=== PATIENT | female | born 1980 | race Caucasian/White ===

== ENCOUNTER 2017-12-27 18:10 | Emergency (ER) | payer MEDICAID, SELFPAY ==
--- NOTE | 2017-12-27 18:10 | DT_ITS ---
This patient was seen during an EMR downtime December 25, 2017 - January 01, 2018. This patient may have a combination of paper and electronic documentation or all paper documentation. All documentation is viewable within the e-chart portion of [facility] for each patient visit.
--- NOTE | 2017-12-27 19:15 | RAD_ITS ---
STUDY: X-RAY CHEST REASON FOR EXAM: Female, 37 years old. Abdominal pain TECHNIQUE: PA and lateral views of the chest. COMPARISON: None. FINDINGS: The lungs are clear and expanded. There is no demonstrated pleural abnormality. Normal size heart. Normal mediastinum and escobar. Normal visualized pulmonary arteries. Normal visualized aortic arch and descending thoracic aorta. Normal visualized thoracic spine. Normal visualized ribs, clavicles, and shoulders. There is no demonstrated abnormality of the visualized soft tissue structures of the upper abdomen. RAD/Chest PA and Lateral IMPRESSION: Normal x-ray examination of the chest. Please note that this study was performed on 12/27/2017, but only now placed in my queue for interpretation, explaining the delay in reporting. Electronically Signed: Ezequiel Arroyo DO at 13:01 EDT Tel , Service support ,
--- NOTE | 2017-12-27 21:10 | CT_ITS ---
STUDY: CT ABDOMEN AND PELVIS WITHOUT CONTRAST REASON FOR EXAM: Female, 37 years old. Mid abdominal pain RADIATION DOSAGE (If Supplied By Facility): CTDIvol = ( 15.39 ) mGy, DLP = ( 734.31 ) mGycm TECHNIQUE: Transaxial images were obtained from the dome of the diaphragm to the symphysis pubis without oral contrast, and without intravenous contrast. Sagittal and coronal images were reconstructed. Individualized dose optimization techniques were used for this CT. COMPARISON: None. FINDINGS: The visualized lung bases are unremarkable. The visualized portions of the heart are within normal limits. Normal liver. Normal gallbladder and extrahepatic biliary system. Normal spleen. Normal pancreas. Normal bilateral adrenal glands. Normal right kidney. Normal left kidney. Normal visualized stomach. Normal small intestine. Normal colon. The appendix is visualized and appears normal. Normal abdominal aorta. Normal inferior vena cava. Normal retroperitoneum. Normal urinary bladder. Normal visualized uterus and left ovary. There is a decrease attenuation lesion in the right ovary most likely represent a cyst measures 4 cm. Normal abdominal wall. Normal osseous structures. CT/Abdomen/Pelvis without Cont IMPRESSION: Right ovarian cyst measures 4 cm. Electronically Signed: Zeinab Branham MD at 4:53 EDT Tel , Service support ,
[2017-12-30 06:28] LABS: Absolute Neutrophil Count 4.4 X10^3/uL (2.0-7.7); Basophil% 0.5 % (0-1); Eosinophils% 1.3 % (0-5); Hematocrit 44.9 % (37-47); Hemoglobin 15.4 g/dl (12.0-15.0); Lymphocyte # 2.43 X10^3/ul (4.0); Lymphocyte % 32.2 % (19-41); Mean Corp Hgb Conc 34.3 g/gl (32-36); Mean Corpuscular Hgb 30.2 pg (27.0-32.0); Mean Platelet Vol. 9.3 fl (6.2-12.0); Monocyte% 7.6 % (0-10); Neutrophil # 4.39 X10^3/uL (2.7-7.7); Neutrophil % 58.3 % (47-70); POSITIVE COUNT NO; POSITIVE DIFFERENTIAL NO; POSITIVE MORPHOLOGY NO; Platelet Count 340 K/mm3 (150-450); RBC Distribution Width CV 13.5 % (11.6-14.6); RBC Distribution Width SD 43.8 fl (35.1-43.9); White Blood Count 7.5 K/mm3 (4.4-11.0)
[2017-12-30 06:29] LABS: Absolute Lymphocyte Count 2.43 X10^3/ul (0.83-4.51); Basophil# 0.04 X10^3/uL; Monocyte# 0.57 X10^3/uL
[2017-12-30 06:52] LABS: Glucose 86 mg/dL (74-106)
[2017-12-30 06:53] LABS: AST(SGOT) 18 U/L (15-37); Alanine Aminotransfer ALT/SGPT 29 U/L (13-56); Albumin, Serum 3.9 g/dL (3.2-5.0); Alkaline Phosphatase 83 U/L (45-117); Anion Gap 8 (5-15); BUN 14 mg/dL (7-18); BUN/Creat Ratio 16.7 RATIO (10-20); Bilirubin, Direct < 0.05 mg/dL (0.00-0.30); Calcium,Total 9.2 mg/dL (8.5-10.1); Chloride 106 mmol/L (98-107); Creatinine, Serum 0.84 mg/dL (0.55-1.02); EST Glomerular Filtration Rate 81 mL/min (>60); Est Glom Filt Rate - Afr Amer 98 mL/min (>60); Lipase 132 U/L (73-393); Potassium 3.7 mmol/L (3.5-5.1); Pregnancy, Serum, hCG Quali. NEGATIVE Negative (0-9 Nonpreg); Protein, Total 7.9 g/dL (6.4-8.2); Sodium Level 141 mmol/L (136-145)
== END 2017-12-27 21:54 | disposition home or self-care (01) ==
LOC: ED 12-28 14:50
PROVIDERS: Emergency Provider Emergency Medicine; Family Provider Family Medicine; PCP Family Medicine
DX: R10.9 Unspecified abdominal pain (principal); N83.201 Unspecified ovarian cyst, right side; R05 Cough; R19.7 Diarrhea, unspecified; E11.9 Type 2 diabetes mellitus without complications; J45.909 Unspecified asthma, uncomplicated; E78.00 Pure hypercholesterolemia, unspecified; I10 Essential (primary) hypertension; K21.9 Gastro-esophageal reflux disease without esophagitis; F32.9 Major depressive disorder, single episode, unspecified; Z79.84 Long term (current) use of oral hypoglycemic drugs; Z79.899 Other long term (current) drug therapy
CPT/HCPCS: 71046; 74176; 80048; 80076; 83690; 84703; 85025; 96361; 96374; 96375; 99283; J7030; J2405

== ENCOUNTER 2018-07-21 15:23 | Emergency (ER) | payer MEDICAID, SELFPAY ==
[2018-07-21 15:23] VITALS: BP 145/85; PULSE 83; RESP 16; TEMP 36; O2SAT 100; BMI 30.4
--- NOTE | 2018-07-21 15:33 | ED.VISSUMM ---
- ER Visit Summary Date of Service: 07/21/18 Chief Complaint: Dental pain History of Present Illness: The patient is a 37 F with dental pain for 2 days. The pain is in her right maxillary molars. She came in today because she had some associated swelling. This came on gradually. She has a fractured tooth secondary to underlying decay. No fevers or other issues. She does not have a dentist. Physical Examination: Afebrile and vital signs unremarkable. No acute distress. HEENT exam unremarkable, except she has some mild right maxillary swelling. No focal abscess, induration, or fluctuance. Tooth #3 is fractured secondary to underlying decay. Otherwise dental exam is unremarkable. Neck unremarkable. Nontender. No lymphadenopathy. Skin appears normal. Test Results: None indicated Emergency Department Course and Treatment: Patient treated with Motrin and penicillin VK. Referred for dental follow-up. Treatment Plan: As above Disposition: Discharged Impression: 1. Dental pain This note was generated with [employer] dictation software. It may contain incorrect words, spelling, and punctuation that were not noted in review of the chart prior to signing ED Disposition - Plan for ED Patient: Chief Complaint: Dental Referrals: NOT,DEFINED [Primary Care Provider] -
--- NOTE | 2018-07-21 15:35 | ED.DEP ---
ED Disposition - Plan for ED Patient: Chief Complaint: Dental Instructions: ED Tooth Pain Prescriptions: Penicillin Vk [Pen-Vee K 250MG] 500 mg PO BID 10 Days #20 tab Referrals: Christel David [NON-STAFF] -
[2018-07-21] MEDS: HYDROcodone Bitartrate/Apap 5/325 Tablet PO (15:37)
[2018-07-21] MEDS: Penicillin Vk 250 MG Tablet 500 MG PO (15:38)
--- NOTE | 2018-07-21 15:50 | ED.RN ---
DISCHARGE INSTRUCTIONS GIVEN TO AND REVIEWED WITH PATIENT, PATIENT DENIES QUESTIONS OR CONCERNS AND VOICES UNDERSTANDING OF DISCHARGE INSTRUCTIONS. PT AMBULATES OUT OF ROOM WITHOUT DIFFICULTY.
== END 2018-07-21 15:50 | disposition home or self-care (01) ==
LOC: ED 15:46
PROVIDERS: Emergency Provider Emergency Medicine
DX: S02.5XXA Fracture of tooth (traumatic), initial encounter for closed fracture (principal); X58.XXXA Exposure to other specified factors, initial encounter; K02.9 Dental caries, unspecified; J45.909 Unspecified asthma, uncomplicated; E11.9 Type 2 diabetes mellitus without complications; Z79.84 Long term (current) use of oral hypoglycemic drugs; Z72.0 Tobacco use
CPT/HCPCS: 99283

== ENCOUNTER 2020-12-07 17:41 | Emergency (ER) | payer OTHER, MEDICAID, SELFPAY ==
[2020-12-07 17:43] VITALS: BP 165/84; PULSE 82; RESP 16; TEMP 36.3; O2SAT 98; BMI 34.9
--- NOTE | 2020-12-07 19:00 | RAD_ITS ---
INDICATION: cough EXAMINATION/TECHNIQUE: X-RAY - XR Chest 1 View COMPARISON: 12/27/2017. FINDINGS: The lungs are clear. The cardiomediastinal silhouette is unremarkable. No pleural effusion or pneumothorax. No acute osseous abnormalities. RAD/Chest 1 View (Portable) IMPRESSION: No acute radiographic abnormalities. Electronically Signed: Gurinder Hendrickson MD at 19:18 EDT Tel , Service support ,
[2020-12-07 20:00] VITALS: RESP 16
--- NOTE | 2020-12-07 20:57 | EX.ED.DYSGE1 ---
HPI History of Present Illness Chief Complaint: Headache Informant: patient Narrative Narrative: 40-year-old female presenting with headache, cough, body aches. She states she has been exposed to Covid at work. She denies fever. She has a nonproductive cough. She is here with 2 of her sons with similar complaints. She has nausea with no vomiting. Denies diarrhea. Denies other complaints. PFSH PFSH Medical History Anxiety Chronic pain Diabetes GERD (gastroesophageal reflux disease) Home Medications albuterol sulfate [Ventolin Hfa (SP)] 1 - 2 puff INHALATION Q4H PRN PRN 02/23/17 [History Last Taken Unknown] metformin 500 mg PO DAILY 02/23/17 [History Last Taken Unknown] omeprazole 20 mg PO DAILY 02/23/17 [History Last Taken Unknown] Allergy/AdvReac Type Severity Reaction Status Date / Time mometasone furoate Allergy Swelling Verified 12/07/20 17:43 [From Nasonex] pioglitazone [From Actos] Allergy Swelling Verified 12/07/20 17:43 Sulfa (Sulfonamide Allergy Rash Verified 12/07/20 17:43 Antibiotics) SEAFOOD AdvReac Nausea/Vom/ Uncoded 12/07/20 17:43 Diarrhea Social History Smoking Status: Current every day smoker ROS ROS ED Constitutional Constitutional ED: Denies fever(s) Eyes Eyes: Denies change in vision ENT ENT ED: Reports rhinorrhea and sore throat Cardiovascular Cardiovascular: Denies chest pain or palpitations Respiratory/Chest Respiratory/Chest: Reports cough; Denies dyspnea or sputum Gastrointestinal Gastrointestinal: Reports nausea; Denies abdominal pain, diarrhea or vomiting Genitourinary Genitourinary ED: Denies dysuria Musculoskeletal Musculoskeletal: Reports myalgias Integumentary Denies rash Neurologic Neurologic: Reports headache(s) Psychiatric Psychiatric: Denies suicidal thoughts EXAM Physical Exam Const Vital Signs: 12/07/20 17:43 12/07/20 20:00 Temperature 97.3 F L Temperature Source Temporal Pulse Rate 82 Respiratory Rate 16 16 Blood Pressure 165/84 H Blood Pressure Mean 111 Pulse Ox 98 Oxygen Delivery Method Room Air Positive well nourished and well developed General Appearance ED: well developed HEENT Reports normocephalic, head/scalp atraumatic and moist mucous membranes Eyes PERRL and EOMs intact bilaterally Neck supple Neck Narrative: No meningismus General: Negative for tenderness Chest Wall inspection of chest normal Resp normal respiratory effort and clear to auscultation bilaterally Cardio regular rate and regular rhythm GI non-tender and non-distended Palpation: soft; Negative for guarding or rebound tenderness present no CVA tenderness Extremity normal to inspection Neuro oriented x3 Sensorium / Orientation: alert Psych mental status grossly normal Skin no rashes or lesions noted MDM MDM MDM Narrative Medical decision making narrative: Covid is negative. Chest x-ray read by myself and radiology shows no acute process. Patient is resting comfortably on reevaluation. She is advised follow up with her primary care physician. Advised return to the ED for worsening complaints. Lab Data Attestation: I reviewed the patient's lab results. Radiography Chest X-Ray - ED: 1 View, Read by ED Physician and Read by Radiologist Diagnostic Testing: Radiology Impression Chest X-Ray 12/07/20 19:00 IMPRESSION: No acute radiographic abnormalities. Electronically Signed: Gurinder Hendrickson MD at 19:18 EDT Tel , Service support , Discharge Plan Triage Chief Complaint: Headache ED Provider: Destini Ware Dx/Rx/DC Orders Clinical Impression: Viral syndrome Instructions: ED Viral Syndrome (Adult) Prescriptions: No Action metformin 500 MG tablet 500 mg PO DAILY RF: 0 omeprazole 20 MG Capsule.Dr 20 mg PO DAILY RF: 0 albuterol sulfate [Ventolin HFA] 1 INHALER inhaler 1 - 2 puff inhalation Q4H PRN PRN (Reason: Asthma) RF: 0 Primary Care Provider: Remi Nova Referrals: Remi Nova MD [Primary Care Provider] - Disposition Disposition: Home, self care
== END 2020-12-07 21:10 | disposition home or self-care (01) ==
PROVIDERS: Emergency Provider Emergency Medicine; PCP Internal Medicine
DX: B34.9 Viral infection, unspecified (principal); E11.9 Type 2 diabetes mellitus without complications; K21.9 Gastro-esophageal reflux disease without esophagitis; F17.200 Nicotine dependence, unspecified, uncomplicated; Z79.84 Long term (current) use of oral hypoglycemic drugs; Z79.899 Other long term (current) drug therapy
CPT/HCPCS: 71045; 87426; 99282

== ENCOUNTER → 2021-04-12 | Outpatient (CLI) | payer OTHER, MEDICAID, SELFPAY | END | disposition home or self-care (01) | LOC: LABSPEC 04-13 07:36 | PROVIDERS: PCP Internal Medicine; Visit Provider Physician Assistant Surgical | DX: U07.1 COVID-19 (principal) | CPT/HCPCS: 87635; U0005; U0003 ==

== ENCOUNTER 2022-03-31 16:08 | Inpatient (IN) | payer MEDICAID, SELFPAY ==
[2022-03-31] VITALS (11 sets, daily range): BP systolic 119–186; BP diastolic 73–87; PULSE 77–92; RESP 14–18; TEMP 36.2–36.6; O2SAT 94–98; BMI 34.0; BMI 33.8
--- NOTE | 2022-03-31 16:27 | EKG12_ITS ---
Test Reason : CHEST PAIN Blood Pressure : / mmHG Vent. Rate : 091 BPM Atrial Rate : 091 BPM P-R Int : 134 ms QRS Dur : 088 ms QT Int : 372 ms P-R-T Axes : 057 008 057 degrees QTc Int : 457 ms Normal sinus rhythm Nonspecific ST abnormality Abnormal ECG Confirmed by EVELINA HOWARD, QUAN ([id number]), department editor JAVI GARCIA ([id number]) on 04/04/2022 10:46:12 AM Referred By: OLIVIA Confirmed By:QUAN HOYT MD
--- NOTE | 2022-03-31 16:28 | ED.VIS.CHEST ---
HPI History of Present Illness Chief Complaint: Chest Pain Detail of Chief Complaint: Chest pain for 1 hour Informant: patient Onset/Context/Timing Current Severity: 12/31 Narrative Narrative: Patient presents to the emergency department with complaint of chest discomfort while at rest. She describes a burning sensation across her chest. She describes discomfort into her back and down both arms. Patient rates her pain a 6 out of 10. She is never had pain like this before. Patient does describe some mild nausea and some mild shortness of breath. Patient states that she felt somewhat ill 6 days ago and took a COVID test that was negative at home. She denies significant cough. She denies fever. She denies recent travel or surgery. Patient is a diabetic and has history of high cholesterol. She has a significant family history of heart disease in her mother required triple bypass surgery at the age of 48. Patient also states that she is been having some chest discomfort off and on for a couple of weeks. Prior Similar Symptoms: Yes PFSH [facility] Medical History (Updated 03/31/22 @ 17:[address] Karma Sauceda, DO) Anxiety Asthma Chronic pain Diabetes Gastritis GERD (gastroesophageal reflux disease) High cholesterol Home Medications albuterol sulfate 90 mcg/actuation aerosol inhaler (Ventolin HFA) 1 - 2 puff inhalation Q4H PRN PRN Asthma 02/23/17 [History Last Taken Unknown] metformin 500 mg tablet 500 mg PO DAILY 02/23/17 [History Last Taken Unknown] omeprazole 20 mg capsule,delayed release 20 mg PO DAILY 02/23/17 [History Last Taken Unknown] bupropion HCl 300 mg 24 hr tablet, extended release 300 mg PO DAILY 03/31/22 [History Last Taken Unknown] dulaglutide 0.75 mg/0.5 mL subcutaneous pen injector (Trulicity) 0.75 mg subcut QWEEK 03/31/22 [History Last Taken Unknown] ergocalciferol (vitamin D2) 1,250 mcg (50,000 unit) capsule (Vitamin D2) 03/31/22 [History Last Taken Unknown] gabapentin 300 mg capsule 300 mg PO BID 03/31/22 [History Last Taken Unknown] ibuprofen 200 mg tablet 400 - 600 mg PO DAILY PRN PRN Pain 03/31/22 [History Last Taken 03/30/22] meloxicam 15 mg tablet 15 mg PO DAILY 03/31/22 [History Last Taken Unknown] Allergy/AdvReac Type Severity Reaction Status Date / Time mometasone furoate Allergy Swelling Verified 12/07/20 17:43 [From Nasonex] pioglitazone [From Actos] Allergy Swelling Verified 12/07/20 17:43 Sulfa (Sulfonamide Allergy Rash Verified 12/07/20 17:43 Antibiotics) SEAFOOD AdvReac Nausea/Vom/ Uncoded 12/07/20 17:43 Diarrhea Social History Smoking Status: Current every day smoker tobacco type: e-cigarettes ROS ROS ED Review of Systems ROS Unobtainable: other Constitutional Constitutional ED: Reports lethargy; Denies chills, fever(s), sweats or weight loss Eyes Eyes: Denies blurry vision, change in vision or diplopia ENT ENT ED: Denies rhinorrhea or sore throat Cardiovascular Cardiovascular: Reports chest pain; Denies orthopnea, palpitations or racing heartbeat Respiratory/Chest Respiratory/Chest: Reports dyspnea; Denies cough, dyspnea on exertion, orthopnea or sputum Gastrointestinal Gastrointestinal: Reports nausea; Denies abdominal pain, diarrhea or vomiting Genitourinary Genitourinary ED: Denies dysuria, hematuria or urinary frequency Musculoskeletal Musculoskeletal: Denies arthralgias, back pain, myalgias or neck pain Integumentary Denies abscess, Abrasions or rash Neurologic Neurologic: Denies headache(s) or weakness Psychiatric Psychiatric: Denies anxiety, depression or suicidal thoughts Endocrine Endocrinology: Denies polydipsia, polyphagia or polyuria Hematologic/Lymphatic Hematologic/Lymphatic: Denies easy bleeding, easy bruising or lymphadenopathy Allergic/Immunologic Allergic/Immunologic ED: Denies mouth swelling, tongue swelling or urticaria EXAM Physical Exam Const Vital Signs: 03/31/22 16:09 03/31/22 16:13 03/31/22 16:15 Temperature 97.5 F L Temperature Source Temporal Pulse Rate 91 88 Respiratory Rate 16 14 Respiratory Effort Normal Blood Pressure 186/87 H 164/80 H Blood Pressure Mean 120 108 Pulse Ox 98 98 Oxygen Delivery Method Room Air Room Air 03/31/22 16:33 03/31/22 16:44 03/31/22 16:50 Temperature Temperature Source Pulse Rate 86 92 Respiratory Rate 18 Respiratory Effort Blood Pressure 164/80 H 148/86 H Blood Pressure Mean 106 Pulse Ox 96 94 Oxygen Delivery Method Room Air Room Air 03/31/22 17:12 03/31/22 17:13 Temperature Temperature Source Pulse Rate 89 89 Respiratory Rate 18 Respiratory Effort Blood Pressure 137/86 H 137/86 H Blood Pressure Mean 103 Pulse Ox 97 Oxygen Delivery Method Room Air Positive well nourished and well developed General Appearance ED: well developed and NAD HEENT Reports TM's clear and moist mucous membranes normocephalic and atraumatic; Negative for trauma or tenderness Tympanic Membrane ED: Yes TM's clear Eyes PERRL and EOMs intact bilaterally General Eye ED: Negative for pale conjunctiva or scleral icterus Neck no lymphadenopathy, supple and no JVD General: Negative for tenderness Chest Wall inspection of chest normal and palpation of chest normal Chest: Negative for tenderness Resp normal respiratory effort and clear to auscultation bilaterally Effort and Inspection: Negative for respiratory distress or pain with movement Auscultation: Negative for rhonchi, wheezes or diminished lung sounds Cardio regular rate, regular rhythm, S1 normal heart sound, S2 normal heart sound and no murmurs Peripheral Pulses: pulses 2+ throughout GI normal to inspection, nondistended, normoactive bowel sounds, soft to palpation, non-tender, non-distended and no masses Back/Spine no CVA tenderness and no thoracic nor lumbar tenderness Extremity normal to inspection General Extremety ED: Negative for edema General Extremity: Negative for edema Neuro oriented x3, CN's II-XII intact bilaterally, no sensory deficits noted and gait normal Sensorium / Orientation: awake, alert, oriented to person, oriented to place and oriented to time Motor Exam: strength 5/5 throughout and strength abnormal Psych mental status grossly normal Skin no rashes or lesions noted and no wounds Heart Score History: Moderately Suspicious ECG: Nonspecific Repolarization Age: </= 45 years Risk Factors: >/= 3 Risk Factors or History of CAD Troponin: </= Normal Limit Score: 4 MDM MDM MDM Narrative Medical decision making narrative: The line established on arrival. Patient placed on bus driver/monitor. Patient had aspirin. Patient was given sublingual nitro which did seem to ease her pain and she had an inch of Nitropaste placed to the anterior chest wall. Patient has a heart score of 4. Case discussed with hospitalist will evaluate patient for admission for diagnosis chest pain Lab Data Labs: Laboratory Results - last 24 hr 03/31/22 03/31/22 03/31/22 16:15 16:15 16:15 WBC 6.9 RBC 4.99 Hgb 14.9 Hct 42.1 MCV 84.4 MCH 29.9 MCHC 35.4 RDW Std Deviation 37.2 RDW Coeff of Sathish 12.1 Plt Count 370 MPV 9.8 Immature Gran % (Auto) 0.100 Neut % (Auto) 63.8 Lymph % (Auto) 27.7 [place] % (Auto) 7.1 Eos % (Auto) 0.7 Baso % (Auto) 0.6 Absolute Neuts (auto) 4.4 Absolute Lymphs (auto) 1.92 Nucleated RBC % 0 D-Dimer Quant (PE/DVT) 0.35 Sodium 137 Potassium 3.8 Chloride 101 Carbon Dioxide 25.0 Anion Gap 11 BUN 15 Creatinine 1.02 Estim Creat Clear Calc 64.65 Est GFR (MDRD) Af Amer 76 Est GFR (MDRD) Non-Af 63 BUN/Creatinine Ratio 14.7 Glucose 362 H Calcium 9.4 Troponin I High Sens 8 Radiography Diagnostic Testing: Clinical Impression(s) from Imaging Studies Chest X-Ray 03/31/22 16:35 IMPRESSION: Normal x-ray examination of the chest. Electronically Signed: Evaristo Lopez MD at 16:55 EDT , 1 view chest x-ray obtained interpreted by myself as no acute disease process. Radiology in agreement. EKG Initial EKG: Attestation: I personally reviewed and interpreted this EKG as follows: Comments: Sinus rhythm with a ventricular rate of [address] changes Discharge Plan Triage Chief Complaint: Chest Pain ED Provider: Karma Sauceda Dx/Rx/DC Orders Clinical Impression: Chest pain, Hx of hypercholesterolemia, Diabetes Prescriptions: No Action metformin 500 MG tablet 500 mg PO DAILY Label Comments: take 1 tablet by mouth twice a day with meals omeprazole 20 MG capsule,delayed release(DR/EC) 20 mg PO DAILY Label Comments: take 1 capsule by mouth once daily albuterol sulfate [Ventolin HFA] 1 INHALER inhaler 1 - 2 puff inhalation Q4H PRN PRN (Reason: Asthma) meloxicam 15 mg tablet 15 mg PO DAILY Label Comments: take 1 tablet by mouth once daily with food for backache pain gabapentin 300 mg capsule 300 mg PO BID Label Comments: take 1 capsule by mouth twice a day ergocalciferol (vitamin D2) [Vitamin D2] 1,250 mcg (50,000 unit) capsule Label Comments: take 1 capsule by mouth every week bupropion HCl 300 mg tablet extended release 24 hr 300 mg PO DAILY Trulicity 0.75 mg/0.5 mL pen injector 0.75 mg SUBCUT QWEEK Label Comments: inject 0.5 milliliters ( 0.75 milligrams ) subcutaneously every w... (REFER TO PRESCRIPTION NOTES). Primary Care Provider: Remi Nova Referrals: Remi Nova MD [Primary Care Provider] - Disposition Disposition: Acute Care Hospital [facility]
[2022-03-31] MEDS: Aspirin 81 MG TAB.CHEW 324 MG PO (16:34)
[2022-03-31] MEDS: 0.9% Normal Saline 1,000 ML 150 ML IV (16:34)
--- NOTE | 2022-03-31 16:35 | RAD_ITS ---
STUDY: X-RAY CHEST REASON FOR EXAM: Female, 41 years old. chest pain TECHNIQUE: Single AP portable view of the chest. COMPARISON: 12/07/2020 FINDINGS: The lungs are clear and expanded. There is no demonstrated pleural abnormality. Normal size heart. Normal mediastinum and escobar. Normal visualized pulmonary arteries. Normal visualized aortic arch and descending thoracic aorta. Normal visualized thoracic spine. Normal visualized ribs, clavicles, and shoulders. There is no demonstrated abnormality of the visualized soft tissue structures of the upper abdomen. RAD/Chest 1 View (Portable) IMPRESSION: Normal x-ray examination of the chest. Electronically Signed: Evaristo Lopez MD at 16:55 EDT ,
[2022-03-31 16:39] LABS: Absolute Lymphocyte Count 1.92 X10^3/uL (0.83-4.51); Absolute Neutrophil Count 4.4 X10^3/uL (2.0-7.7); Basophil# 0.04 X10^3/uL; Basophil% 0.6 % (0-1); Eosinophil# 0.05 X10^3/uL; Eosinophils% 0.7 % (0-5); Hematocrit 42.1 % (37-47); Hemoglobin 14.9 g/dL (12.0-15.0); Lymphocyte # 1.92 X10^3/ul (0.83-4.51); Lymphocyte % 27.7 % (19-41); Mean Corp Hgb Conc 35.4 g/dL (32-36); Mean Corpuscular Hgb 29.9 pg (27.0-32.0); Mean Corpuscular Volume 84.4 fL (81-99); Mean Platelet Vol. 9.8 fl (6.2-12.0); Monocyte# 0.49 X10^3/uL; Monocyte% 7.1 % (0-10); NRBC Flagged by Analyzer 0 % (0-5); Neutrophil # 4.42 X10^3/uL (2.7-7.7); Neutrophil % 63.8 % (47-70); Platelet Count 370 K/mm3 (150-450); RBC Distribution Width CV 12.1 % (11.6-14.6); RBC Distribution Width SD 37.2 fl (35.1-43.9); Red Blood Count 4.99 M/mm3 (4.2-5.4); White Blood Count 6.9 K/mm3 (4.4-11.0)
[2022-03-31] MEDS: Nitroglycerin SL (ED/IMG/CATH) 0.4 MG TABLET SL (16:44)
[2022-03-31 16:54] LABS: D-Dimer Quantitative (DVT/PE) 0.35 FEU/ug/m (0.27-0.49)
[2022-03-31 16:59] LABS: Anion Gap 11 (5-15); BUN 15 mg/dL (7-18); BUN/Creat Ratio 14.7 RATIO (10-20); Calcium,Total 9.4 mg/dL (8.5-10.1); Chloride 101 mmol/L (98-107); Creatinine, Serum 1.02 mg/dL (0.55-1.02); EST Glomerular Filtration Rate 63 mL/min (>60); Est Glom Filt Rate - Afr Amer 76 mL/min (>60); Estimated Creatinine Clearance 64.65 ml/min; Glucose 362 mg/dL (74-106); Potassium 3.8 mmol/L (3.5-5.1); Sodium Level 137 mmol/L (136-145); Troponin-I HS (w/2H Reflex) 8 pg/mL (3.0-54.0)
[2022-03-31] MEDS: Nitroglycerin Oint 1 INCH PACKET TD (17:13)
--- NOTE | 2022-03-31 17:20 | PCM.HP.STD ---
HPI - General General Date of Admission: 03/31/22 Date of Service: 03/31/22 Chief Complaint: Chest pain HPI Narrative The patient is a 41 y/o F w/ PMHx: Asthma, Anxiety and Depression, Tobacco use, Obesity, GERD w/ Hx gastritis, Diabetes mellitus type II with neuropathy, HLD who presents to the [facility] ED on 03/31/22 with history of onset chest discomfort noted to have occurred approximate 1 hour prior to arrival while at rest described as a burning sensation across her chest with discomfort to her back between her shoulder blades and down both her arms more so the heaviness as well as radiation up the left neck, rated 6 out of 10 in severity with associated mild nausea without emesis and mild dyspnea with history of mild illness 6 days prior with home COVID testing at that time that was negative with no recent fever, cough, chills prompting eventual ED evaluation. She currently reports her chest discomfort is 0 out of 10. She does report that she has been having intermittent discomfort to her chest however for at least a couple weeks. She does report that she quit cigarette tobacco use approximately 1 week prior and transition to vaping pen. Work-up in the ED included T97.5, heart rate 91, BP initially 186/87 with most recent repeat 137/86, respiratory rate 16, 98% on room air, CBC with WBC 6.9, hemoglobin 1114.9, platelet 370 without marked shift, D-dimer 0.35, unremarkable BMP aside glucose 362, troponin 8, chest x-ray with no acute cardiopulmonary findings, EKG with SR with nonspecific ST-T wave changes. [facility] Medical History Anxiety and depression Asthma Diabetes mellitus, type 2 Engages in vaping GERD (gastroesophageal reflux disease) High cholesterol Obesity Tobacco use Home Medications albuterol sulfate 90 mcg/actuation aerosol inhaler (Ventolin HFA) 1 - 2 puff inhalation Q4H PRN PRN Asthma 02/23/17 [History Last Taken 03/31/22] metformin 500 mg tablet 1,000 mg PO BID DM 02/23/17 [History Last Taken 03/31/22] omeprazole 20 mg capsule,delayed release 20 mg PO DAILY 02/23/17 [History Last Taken 03/31/22] bupropion HCl 300 mg 24 hr tablet, extended release 300 mg PO DAILY 03/31/22 [History Last Taken 03/31/22 13:00] dulaglutide 0.75 mg/0.5 mL subcutaneous pen injector (Trulicity) 0.75 mg subcut TH DM 03/31/22 [History Last Taken 03/24/22] ergocalciferol (vitamin D2) 1,250 mcg (50,000 unit) capsule (Vitamin D2) 1,250 mcg PO MCDUFFIE SUPPLEMENT 03/31/22 [History Last Taken 03/27/22] gabapentin 300 mg capsule 300 mg PO BID 03/31/22 [History Last Taken 03/31/22] ibuprofen 200 mg tablet 400 - 600 mg PO DAILY PRN PRN Pain 03/31/22 [History Last Taken 03/30/22] meloxicam 15 mg tablet 15 mg PO DAILY 03/31/22 [History Last Taken 03/31/22] Allergy/AdvReac Type Severity Reaction Status Date / Time mometasone furoate Allergy Swelling Verified 12/07/20 17:43 [From Nasonex] pioglitazone [From Actos] Allergy Swelling Verified 12/07/20 17:43 Sulfa (Sulfonamide Allergy Rash Verified 12/07/20 17:43 Antibiotics) SEAFOOD AdvReac Nausea/Vom/ Uncoded 12/07/20 17:43 Diarrhea Family History (Updated 03/31/22 @ 18:[address] Alexus Tello MD) Mother CAD (coronary artery disease) Heart disease Hypertension Father CVA (cerebral vascular accident) S/P CABG x 3 Surgical History (Updated 03/31/22 @ 18:[address] Alexus Tello MD) History of History of surgery of uterus Social History (Updated 03/31/22 @ 18:[address] Alexus Tello MD) household members: children Smoking Status: Current every day smoker tobacco type: e-cigarettes Electronic Cigarette Use: with nicotine how long ago did patient quit smoking: Quit cigarette tobacco use 1 wk prior, smoked ~ 1/4 pack until quit->vaping alcohol intake: current alcohol intake frequency: holidays/special occasions only substance use type: does not use ROS ROS Narrative Admission Review of Systems: CONSTITUTIONAL: No weight loss, fever, chills, + weakness or fatigue. HEENT: Eyes: No visual loss, blurred vision, double vision or yellow sclerae. Ears, Nose, Throat: No hearing loss, sneezing, congestion, runny nose or sore throat. SKIN: No rash or itching, lesions, wounds. CARDIOVASCULAR: + chest pain, chest pressure or chest discomfort, No palpitations, edema, orthopnea, syncopal events. RESPIRATORY: + shortness of breath, No cough or sputum, wheezing, hemoptysis. GASTROINTESTINAL: + nausea without emesis, No anorexia, diarrhea, abdominal pain, melena, BRBPR. GENITOURINARY: No dysuria, frequency, urgency or retention. NEUROLOGICAL: No headache, dizziness, syncope, paralysis, ataxia, numbness or tingling in the extremities, focal weakness, change in bowel or bladder control, seizure. MUSCULOSKELETAL: + muscle, back pain, joint pain or stiffness. HEMATOLOGIC: No anemia, bleeding or bruising. LYMPHATICS: No enlarged nodes. No history of splenectomy. PSYCHIATRIC: + history of depression or anxiety. ENDOCRINOLOGIC: No reports of sweating, cold or heat intolerance. No polyuria or polydipsia. ALLERGIES: + history of asthma. Vital Signs Vital Signs Vital Signs: 03/31/22 16:09 03/31/22 16:13 03/31/22 16:15 Temperature 97.5 F L Temperature Source Temporal Pulse Rate 91 88 Respiratory Rate 16 14 Respiratory Effort Normal Blood Pressure 186/87 H 164/80 H Blood Pressure Mean 120 108 Pulse Ox 98 98 Oxygen Delivery Method Room Air Room Air 03/31/22 16:33 03/31/22 16:44 03/31/22 16:50 Temperature Temperature Source Pulse Rate 86 92 Respiratory Rate 18 Respiratory Effort Blood Pressure 164/80 H 148/86 H Blood Pressure Mean 106 Pulse Ox 96 94 Oxygen Delivery Method Room Air Room Air 03/31/22 17:12 03/31/22 17:13 Temperature Temperature Source Pulse Rate 89 89 Respiratory Rate 18 Respiratory Effort Blood Pressure 137/86 H 137/86 H Blood Pressure Mean 103 Pulse Ox 97 Oxygen Delivery Method Room Air Weight Weight: 204 lb 5.896 oz Body Mass Index (BMI) 34.0 Physical Exam Narrative Physical Examination: General: Awake, alert, oriented x 3 and cooperative, seated upright in the ED bed, denies any further chest discomfort, reports mild headache onset with nitroglycerin administration. Skin: Normal color, normal turgor, no icterus, no cyanosis. HEENT: AT/NC, EOMI, PERRLA, MMM, no carotid bruits or JVD noted. Lungs: Diminished, greater bases, appropriate effort, no rales, ronchi or wheezing. Heart: Currently regular rate and rhythm; no gallop, rub audible. Abdomen: Soft, obese, NTTP, ND, distant normal BS, no HSM. Extremities: No cyanosis, clubbing, or edema. Neurological: Patient awake, alert, oriented as noted, cognitive function intact; pupils equally reactive to light and accommodation, cranial nerves II-XII grossly normal, moving all 4 extremities, no focal deficits, strength mildly global decrease secondary to acute complaints, improving Psychiatric: Affect appears mildly fatigued otherwise normal, no acute evidence of depressive or anxiety feelings. Results Lab / Micro Data Result Diagrams: 03/31/22 16:15 03/31/22 16:15 Labs: Laboratory Results - last 24 hr 03/31/22 16:15: WBC 6.9, RBC 4.99, Hgb 14.9, Hct 42.1, MCV 84.4, MCH 29.9, MCHC 35.4, RDW Std Deviation 37.2, RDW Coeff of Sathish 12.1, Plt Count 370, MPV 9.8, Immature Gran % (Auto) 0.100, Neut % (Auto) 63.8, Lymph % (Auto) 27.7, [place] % (Auto) 7.1, Eos % (Auto) 0.7, Baso % (Auto) 0.6, Absolute Neuts (auto) 4.4, Absolute Lymphs (auto) 1.92, Nucleated RBC % 0 03/31/22 16:15: D-Dimer Quant (PE/DVT) 0.35 03/31/22 16:15: Sodium 137, Potassium 3.8, Chloride 101, Carbon Dioxide 25.0, Anion Gap 11, BUN 15, Creatinine 1.02, Estim Creat Clear Calc 64.65, Est GFR (MDRD) Af Amer 76, Est GFR (MDRD) Non-Af 63, BUN/Creatinine Ratio 14.7, Glucose 362 H, Calcium 9.4, Troponin I High Sens 8 Radiology Impression Chest X-Ray 03/31/22 16:35 IMPRESSION: Normal x-ray examination of the chest. Electronically Signed: Evaristo Lopez MD at 16:55 EDT , Assessment & Plan Assessment/Plan (1) Chest pain: PLAN: The patient is a 41 y/o F w/ PMHx: Asthma, Anxiety and Depression, Tobacco use, Obesity, GERD w/ Hx gastritis, Diabetes mellitus type II with neuropathy, HLD who presents to the [facility] ED on 03/31/22 with history of onset chest discomfort noted to have occurred approximate 1 hour prior to arrival while at rest described as a burning sensation across her chest with discomfort to her back between her shoulder blades and down both her arms more so the heaviness as well as radiation up the left neck, rated 6 out of 10 in severity with associated mild nausea without emesis and mild dyspnea. #1. Chest Pain: EKG in ED sinus rhythm with nonspecific ST-T wave changes with no acute evidence of ischemia, CXR w/ no acute cardiopulmonary finding, initial trop 8. Will admit to PCU, place on a monitored bed to assure no acute myocardial infarction with serial cardiac enzymes and EKGs. Given history to be cautious if serial cardiac enzymes and repeat EKGs remain unremarkable will pursue AM cardiac stress testing. FLP in AM. Mag pending. COVID PCR requested given timeline to be cautious. ASA, NG, morphine. #2. Elevated BP without HTN history: Patient with no prior history, significantly elevated BP upon presentation, continue to closely monitor and if appropriate add oral regimen, currently nitroglycerin transdermal paste in place with BP improvement, as needed IV hydralazine. #3. Hyperlipidemia: Previous history she notes of bilateral lower extremity significant swelling and pain with even low-dose statin therapy, will hold off on any addition, FLP in AM. #4. Obesity: Weight loss and lifestyle changes encouraged. #5. Tobacco Abuse: Encouraged very strongly vaping tobacco cessation, inpatient consultation per RT, NR offered and recommended strongly to use this instead of vaping and then taper off. #6. Diabetes mellitus type II with neuropathy: Hold oral home regimen, ADA diet until n.p.o. status, continue home gabapentin regimen, accu checks w/ ISS. #7. Anxiety and depression: We will continue patient home bupropion regimen. #8. GERD with history gastritis: We will continue patient on PPI. #9. Chronic asthma: Strongly encourage both cigarette tobacco and vaping cessation, not on any chronic regimen, as needed albuterol. #10. DVT prophylaxis: SCDs, Lovenox. Charges/Coding Visit Charges OBSV E&M: 44140 Initial observation care L3
--- NOTE | 2022-03-31 17:56 | EKG12_ITS ---
Test Reason : CP ADMIT Blood Pressure : / mmHG Vent. Rate : 078 BPM Atrial Rate : 078 BPM P-R Int : 136 ms QRS Dur : 082 ms QT Int : 388 ms P-R-T Axes : 059 005 078 degrees QTc Int : 442 ms Normal sinus rhythm Normal ECG When compared with ECG of 31-MAR-2022 16:12, MANUAL COMPARISON REQUIRED, DATA IS UNCONFIRMED Confirmed by EVELINA HOWARD, QUAN ([id number]), managing editor JAVI GARCIA ([id number]) on 04/01/2022 2:26:02 PM Referred By: FCO Confirmed By:QUAN HOYT MD
[2022-03-31 18:31] LABS: Reflex Troponin-HS? (from REC) Y
[2022-03-31 18:42] LABS: Magnesium 1.7 mg/dL (1.6-2.6)
[2022-03-31 18:50] LABS: Troponin-I HS 38 pg/mL (3.0-54.0)
[2022-03-31 19:56] LABS: Troponin-I HS 49 pg/mL (3.0-54.0)
[2022-03-31] MEDS: Insulin Lispro 100 UNIT/ML INSULN.PEN SC (22:05)
[2022-03-31] MEDS: Gabapentin 300 MG Capsule PO (22:06)
[2022-03-31] MEDS: Acetaminophen 325 MG Tablet 650 MG PO (22:06)
[2022-03-31 22:55] LABS: Bedside Glucose 333 mg/dL (74-106)
[2022-03-31] MEDS: 0.9% Normal Saline 1,000 ML 100 ML IV (23:57)
[2022-04-01] VITALS (20 sets, daily range): BP systolic 121–157; BP diastolic 73–96; PULSE 63–115; RESP 14–18; TEMP 36.4–37.1; O2SAT 95–100
[2022-04-01 01:03] LABS: Troponin-I HS 57 pg/mL (3.0-54.0)
--- NOTE | 2022-04-01 05:55 | EKG12_ITS ---
Test Reason : AM EKG Blood Pressure : / mmHG Vent. Rate : 068 BPM Atrial Rate : 068 BPM P-R Int : 148 ms QRS Dur : 092 ms QT Int : 428 ms P-R-T Axes : 052 014 044 degrees QTc Int : 455 ms Normal sinus rhythm Normal ECG When compared with ECG of 31-MAR-2022 18:10, MANUAL COMPARISON REQUIRED, DATA IS UNCONFIRMED Confirmed by EVELINA HOWARD, QUAN ([id number]), newspaper editor JAVI GARCIA ([id number]) on 04/01/2022 2:25:38 PM Referred By: Confirmed By:QUAN HOYT MD
--- NOTE | 2022-04-01 05:55 | STEWCON_ITS ---
Reason For Study: Chest Pain Stress Results Protocol: Octaviano Protocol WITH DEFINITY Maximum Predicted HR: 178 bpm Target HR: 151 bpm % Maximum Predicted HR: 72 % Heart Stage Duration Rate BP Comment (mm:ss) (bpm) Baseline 68 128/82No Chest Pain; 4 ML Diluted Definity Octaviano Protocol Stage I 3:00 105 132/80Mild Chest Ache Octaviano Protocol Stage II 3:00 114 160/843/10 Chest Pain; Mild Dyspnea Octaviano Protocol Stage III 2:14 129 / 7/10 Chest Pain; Mod Dyspnea NTG Given In Recovery for 03/02 Chest Pain-Resolved Recovery 79 116/70After 5 Min Stress Duration: 8:14 mm:ss Maximum Stress HR: 129 bpm METS: 10 Baseline Echocardiogram Findings Stress Echo Wall motion Data Resting WM Intermediate WM Stress WM ECHO/Stress Test Echo W/Contrast Interpretation Summary Stress echocardiogram with Definity enhancement. 41-year-old lady with a history of chest pain. Stress protocol: Resting EKG demonstrates normal sinus rhythm with a rate of 68 bpm normal inter vals are noted resting blood pressure is 128/82 mmHg. The patient exercised according to the r egular Octaviano protocol for a total duration of 8 minutes and 14 seconds. The maximum heart rate attain ed was 130 bpm which was 73% of max impacted heart rate the maximum workload was 10.1 metabolic equi valents. The patient did experience chest discomfort at peak exercise dissipating towards the end of exercise. At rest there were no ST or T wave changes noted to suggest ischemia and at peak exerci se there was [address] elevation noted in lead aVL suggestive of ischemia in the lateral lead. Ther e was approximately 4.[address] depression noted in lead V4, V5 and V6. The peak blood pressure was 160/84 mmHg. The patient was administered 1 tablet sublingual nitroglycerin at peak ex ercise. Stress echocardiogram. The resting echocardiographic evaluation demonstrated an estimated ejection fraction of 40% with mid and apical lateral hypokinesis. At peak exercise there was thickening and improvement in left ventricular systolic function by the mid lateral wall becam e nearly akinetic suggesting an ischemic zone in this area. The estimated ejection fraction was 5 0%. Conclusion: Abnormal exercise stress echo with evidence of mid lateral ischemia. Chest discomfort suggestive of angina. Ordering Physician: Alexus Tello Referring Physician: Jose English Performed By: Елена Hopkins RDCS
[2022-04-01 06:32] LABS: Absolute Neutrophil Count 3.3 X10^3/uL (2.0-7.7); Basophil# 0.04 X10^3/uL; Basophil% 0.6 % (0-1); Eosinophils% 1.6 % (0-5); Hematocrit 37.3 % (37-47); Hemoglobin 12.9 g/dL (12.0-15.0); Lymphocyte % 35.2 % (19-41); Mean Corp Hgb Conc 34.6 g/dL (32-36); Mean Corpuscular Hgb 29.7 pg (27.0-32.0); Mean Corpuscular Volume 85.9 fL (81-99); Mean Platelet Vol. 9.3 fl (6.2-12.0); Monocyte# 0.59 X10^3/uL; Monocyte% 9.4 % (0-10); NRBC Flagged by Analyzer 0 % (0-5); Neutrophil % 52.9 % (47-70); Platelet Count 317 K/mm3 (150-450); Red Blood Count 4.34 M/mm3 (4.2-5.4); White Blood Count 6.3 K/mm3 (4.4-11.0)
[2022-04-01] MEDS: Aspirin E.C. 81 MG Tablet PO (06:42)
[2022-04-01 07:03] LABS: AST(SGOT) 40 U/L (15-37); Alanine Aminotransfer ALT/SGPT 85 U/L (13-56); Albumin, Serum 3.2 g/dL (3.2-5.0); Alkaline Phosphatase 146 U/L (45-117); Anion Gap 6 (5-15); BUN 13 mg/dL (7-18); BUN/Creat Ratio 18.6 RATIO (10-20); Calcium,Total 8.6 mg/dL (8.5-10.1); Chloride 108 mmol/L (98-107); Cholesterol 212 mg/dL (200); EST Glomerular Filtration Rate 98 mL/min (>60); Est Glom Filt Rate - Afr Amer 118 mL/min (>60); Estimated Creatinine Clearance 94.21 ml/min; Globulin 3.3 g/dL (2.2-4.2); Glucose 214 mg/dL (74-106); High Density Lipoprotein 26 mg/dL; Protein, Total 6.5 g/dL (6.4-8.2); Sodium Level 138 mmol/L (136-145); Triglycerides 382 mg/dL; Very Low Density Lipoprotein 76 mg/dL (5-40)
[2022-04-01 07:05] LABS: Bedside Glucose 231 mg/dL (74-106)
--- NOTE | 2022-04-01 07:52 | US_ITS ---
STUDY: ABDOMINAL ULTRASOUND - RIGHT UPPER QUADRANT REASON FOR VISIT: Female, 41 years old new transaminitis -- PORTABLE - PT HAD CATH PROCEDURE TECHNIQUE: Ultrasound evaluation of the right upper quadrant was performed with real-time and static alaniz-scale imaging. TECHNICAL QUALITY: Adequate. COMPARISON: None. FINDINGS: Liver: The liver measures 19.6 cm. There is increased echogenicity consistent with fatty infiltration. The bile ducts are within normal limits. There is hepatic color flow. The direction of portal flow is hepatopetal. There is no demonstrated mass lesion. Gallbladder: Normal distended gallbladder. The gallbladder wall measures 2 mm. There is a negative sonographic Alonzo''s sign. There is no pericholecystic fluid. There are no gallstones. Common Bile Duct (C.B.D.): The common bile duct measures 8 mm. Pancreas: Normal size of the head, body and tail of the pancreas. There is normal echogenicity of the pancreas. There is no demonstrated pancreatic mass or cyst. Right Kidney: Normal size of the right kidney. The right kidney measures 12.1 cm. Normal renal cortex. The right cortex measures 1.6 cm. There is no demonstrated renal mass or cyst. There is no right hydronephrosis. US/Abdomen Limited IMPRESSION: 1. Extrahepatic biliary ductal dilatation. Correlation with MRCP and/or ERCP is recommended to exclude choledocholithiasis. 2. Fatty infiltration of the liver. Electronically Signed: Evaristo Lopez MD at 20:08 EDT ,
[2022-04-01 08:31] LABS: Hemoglobin A1c 10.1 % (3.8-5.6)
--- NOTE | 2022-04-01 10:04 | CASEMGMT ---
According to the [facility] website, the following are in-network tertiary facilities: [facility], [place], [facility], [place], [facility], [facility], [place], [facility], and . Db RAGSDALE CM
[2022-04-01 10:30] LABS: Internal QC Validated? YES +Cl - CLEAR BKGD; Pregnancy, Serum, hCG Quali. NEGATIVE Negative
[2022-04-01] MEDS: 0.9% Normal Saline 1,000 ML 15 ML IV (10:50)
--- NOTE | 2022-04-01 11:01 | NURSING ---
Report called to Siva RAGSDALE in geotechnical laboratory technician
--- NOTE | 2022-04-01 11:29 | PCM.CONS.C ---
Assessment & Plan Assessment/Plan (1) Chest pain: PLAN: Patient presents with chest discomfort with features versus classic for unstable angina. She underwent stress echocardiogram which demonstrated evidence of lateral ischemia. She just underwent a cardiac catheterization which demonstrated the following: Normal left main coronary artery. Left anterior descending artery with mild disease in the first diagonal vessel with high-grade 90% stenosis. Left circumflex artery with moderate 40 to 50% stenosis. Dominant right coronary artery with no significant stenosis. Left ventricular systolic dysfunction estimated ejection fraction of 40% with lateral and anterior hypokinesis present. Based on the above angiographic findings the patient will undergo angioplasty and stenting of the first diagonal vessel. She will continue with aggressive risk factor modification afterwards including statin beta-ruddy and CHRIS inhibitor. HPI Consult Data Date of Consult: 04/01/22 HPI Narrative HPI Narrative: PHAM MARIA, is a 41 F who presents to the emergency room complaining of a burning sensation across her chest and down her back and both arms. This is apparently been going on for few weeks. There was associated mild nausea and some shortness of breath. She initially felt that she had COVID and took a COVID test but that was negative. She does have a significant family history of coronary artery disease. In addition she does have a history of hypertension and diabetes mellitus. She has had no presyncope or syncope. She presented to the emergency room her EKG did not demonstrate any resting changes and she was scheduled for and underwent a stress echocardiogram which demonstrated abnormality involving the mid lateral wall. She also developed chest discomfort with exertion. Cardiology was called for further evaluation and management. PFSH Medical History Anxiety and depression Asthma Diabetes mellitus, type 2 Engages in vaping GERD (gastroesophageal reflux disease) High cholesterol Obesity Tobacco use Home Medications albuterol sulfate 90 mcg/actuation aerosol inhaler (Ventolin HFA) 1 - 2 puff inhalation Q4H PRN PRN Asthma 02/23/17 [History Last Taken 03/31/22] metformin 500 mg tablet 1,000 mg PO BID DM 02/23/17 [History Last Taken 03/31/22] omeprazole 20 mg capsule,delayed release 20 mg PO DAILY 02/23/17 [History Last Taken 03/31/22] bupropion HCl 300 mg 24 hr tablet, extended release 300 mg PO DAILY 03/31/22 [History Last Taken 03/31/22 13:00] dulaglutide 0.75 mg/0.5 mL subcutaneous pen injector (Trulicity) 0.75 mg subcut TH DM 03/31/22 [History Last Taken 03/24/22] ergocalciferol (vitamin D2) 1,250 mcg (50,000 unit) capsule (Vitamin D2) 1,250 mcg PO MCDUFFIE SUPPLEMENT 03/31/22 [History Last Taken 03/27/22] gabapentin 300 mg capsule 300 mg PO BID 03/31/22 [History Last Taken 03/31/22] ibuprofen 200 mg tablet 400 - 600 mg PO DAILY PRN PRN Pain 03/31/22 [History Last Taken 03/30/22] meloxicam 15 mg tablet 15 mg PO DAILY 03/31/22 [History Last Taken 03/31/22] Allergy/AdvReac Type Severity Reaction Status Date / Time mometasone furoate Allergy Swelling Verified 12/07/20 17:43 [From Nasonex] pioglitazone [From Actos] Allergy Swelling Verified 12/07/20 17:43 Sulfa (Sulfonamide Allergy Rash Verified 12/07/20 17:43 Antibiotics) SEAFOOD AdvReac Nausea/Vom/ Uncoded 12/07/20 17:43 Diarrhea Family History Mother CAD (coronary artery disease) Heart disease Hypertension Father CVA (cerebral vascular accident) S/P CABG x 3 Surgical History History of History of surgery of uterus Social History household members: children housing: house Smoking Status: Current every day smoker tobacco type: e-cigarettes Electronic Cigarette Use: with nicotine how long ago did patient quit smoking: Quit cigarette tobacco use 1 wk prior, smoked ~ 1/4 pack until quit->vaping alcohol intake: current alcohol intake frequency: holidays/special occasions only substance use type: does not use ROS Constitutional Constitutional: Denies fever(s) or weight loss Eyes Eyes: Reports systems reviewed and no addt'l complaints, except as documented ENT HEENT: Reports systems reviewed and no addt'l complaints, except as documented Cardiovascular Cardiovascular: Reports chest pain at rest, chest pain with activity, dyspnea at rest and dyspnea on exertion; Denies edema, palpitations or paroxysmal nocturnal dyspnea Respiratory/Chest Respiratory/Chest: Denies dyspnea on exertion, productive cough, shortness of breath at rest or shortness of breath with exertion Gastrointestinal Gastrointestinal: Denies change in bowel habits, nausea, vomiting or weight changes Genitourinary Genitourinary: Denies difficulty urinating Musculoskeletal Musculoskeletal: Denies joint stiffness or muscle weakness Integumentary Integumentary: Denies lesions Neurologic Neurologic: Denies dizziness or syncope Psychiatric Psychiatric: Denies anxiety Endocrine Endocrinology: Denies excessive sweating or fatigue Hematologic/Lymphatic Hematologic/Lymphatic: Denies anemia Allergic/Immunologic Allergic/Immunologic: Denies seasonal rhinorrhea Risk Stratification Risk Stratification Applicable: Yes Age >/= 65: No >/= 3 CAD Risk Factors (HTN, HLD, DM, family hx of CAD, or current smoker): Yes Aspirin Use in the Past 7 Days: No Severe Angina (>/= episodes in 24 hours): Yes EKG ST Changes >/= 0.5mm: No Positive Cardiac Marker: No ADITHYA Risk Stratification Score: 2 ADITHYA % Risk: 8% Risk Objective Data Vital Signs: Vital Signs Temp Pulse Resp BP Pulse Ox O2 Del Method 97.9 F 81 16 157/96 H 95 Room Air 04/01/22 11:05 04/01/22 11:05 04/01/22 11:05 04/01/22 11:05 04/01/22 11:05 04/01/22 11:05 Oxygen Delivery Method Room Air Weight: 203 lb 4.259 oz Body Mass Index (BMI) 33.8 Intake & Output: Intake and Output for Last 24 Hours 03/30/22 03/31/22 04/01/22 23:59 23:59 23:59 Intake Total 252.5 / 252.5 880 / 880 Balance 252.5 / 252.5 880 / 880 Lab / Micro Data Result Diagrams: 04/01/22 06:06 04/01/22 06:06 Labs: Laboratory Results - last 24 hr 03/31/22 16:15: WBC 6.9, RBC 4.99, Hgb 14.9, Hct 42.1, MCV 84.4, MCH 29.9, MCHC 35.4, RDW Std Deviation 37.2, RDW Coeff of Sathish 12.1, Plt Count 370, MPV 9.8, Immature Gran % (Auto) 0.100, Neut % (Auto) 63.8, Lymph % (Auto) 27.7, [place] % (Auto) 7.1, Eos % (Auto) 0.7, Baso % (Auto) 0.6, Absolute Neuts (auto) 4.4, Absolute Lymphs (auto) 1.92, Nucleated RBC % 0 03/31/22 16:15: D-Dimer Quant (PE/DVT) 0.35 03/31/22 16:15: Sodium 137, Potassium 3.8, Chloride 101, Carbon Dioxide 25.0, Anion Gap 11, BUN 15, Creatinine 1.02, Estim Creat Clear Calc 64.65, Est GFR (MDRD) Af Amer 76, Est GFR (MDRD) Non-Af 63, BUN/Creatinine Ratio 14.7, Glucose 362 H, Calcium 9.4, Troponin I High Sens 8 03/31/22 16:15: Magnesium 1.7 03/31/22 16:15: Serum , Qual NEGATIVE 03/31/22 17:40: COVID-19 (JANNIE) Not Detected 03/31/22 18:16: Troponin I High Sens 38 03/31/22 19:00: Troponin I High Sens 49 03/31/22 22:00: POC Glucose 333 H 04/01/22 00:30: Troponin I High Sens 57 H 04/01/22 06:06: WBC 6.3, RBC 4.34, Hgb 12.9, Hct 37.3, MCV 85.9, MCH 29.7, MCHC 34.6, RDW Std Deviation 38.0, RDW Coeff of Sathish 12.0, Plt Count 317, MPV 9.3, Immature Gran % (Auto) 0.300, Neut % (Auto) 52.9, Lymph % (Auto) 35.2, [place] % (Auto) 9.4, Eos % (Auto) 1.6, Baso % (Auto) 0.6, Absolute Neuts (auto) 3.3, Absolute Lymphs (auto) 2.20, Nucleated RBC % 0 04/01/22 06:06: Sodium 138, Potassium 4.0, Chloride 108 H, Carbon Dioxide 24.0, Anion Gap 6, BUN 13, Creatinine 0.70, Estim Creat Clear Calc 94.21, Est GFR (MDRD) Af Amer 118, Est GFR (MDRD) Non-Af 98, BUN/Creatinine Ratio 18.6, Glucose 214 H, Calcium 8.6, Total Bilirubin 0.30, AST 40 H, ALT 85 H, Alkaline Phosphatase 146 H, Total Protein 6.5, Albumin 3.2, Globulin 3.3, Albumin/Globulin Ratio 1.0, Triglycerides 382 H, Cholesterol 212 H, LDL Cholesterol 110, VLDL Cholesterol 76 H, HDL Cholesterol 26 L 04/01/22 06:06: Hemoglobin A1c 10.1 H 04/01/22 06:40: POC Glucose 231 H Cardiology Labs/Tests 03/31/22 16:15: WBC 6.9, RBC 4.99, Hgb 14.9, Hct 42.1, MCV 84.4, MCH 29.9, MCHC 35.4, Plt Count 370, MPV 9.8, Immature Gran % (Auto) 0.100, Neut % (Auto) 63.8, Lymph % (Auto) 27.7, [place] % (Auto) 7.1, Eos % (Auto) 0.7, Baso % (Auto) 0.6, Absolute Neuts (auto) 4.4, Nucleated RBC % 0 03/31/22 16:15: D-Dimer Quant (PE/DVT) 0.35 03/31/22 16:15: Sodium 137, Potassium 3.8, Chloride 101, Carbon Dioxide 25.0, Anion Gap 11, BUN 15, Creatinine 1.02, Est GFR (MDRD) Af Amer 76, Est GFR (MDRD) Non-Af 63, BUN/Creatinine Ratio 14.7, Glucose 362 H, Calcium 9.4 03/31/22 16:15: Magnesium 1.7 04/01/22 06:06: WBC 6.3, RBC 4.34, Hgb 12.9, Hct 37.3, MCV 85.9, MCH 29.7, MCHC 34.6, Plt Count 317, MPV 9.3, Immature Gran % (Auto) 0.300, Neut % (Auto) 52.9, Lymph % (Auto) 35.2, [place] % (Auto) 9.4, Eos % (Auto) 1.6, Baso % (Auto) 0.6, Absolute Neuts (auto) 3.3, Nucleated RBC % 0 04/01/22 06:06: Sodium 138, Potassium 4.0, Chloride 108 H, Carbon Dioxide 24.0, Anion Gap 6, BUN 13, Creatinine 0.70, Est GFR (MDRD) Af Amer 118, Est GFR (MDRD) Non-Af 98, BUN/Creatinine Ratio 18.6, Glucose 214 H, Calcium 8.6, Total Bilirubin 0.30, Triglycerides 382 H, Cholesterol 212 H, LDL Cholesterol 110, VLDL Cholesterol 76 H, HDL Cholesterol 26 L 04/01/22 06:06: Hemoglobin A1c 10.1 H Rhythm: EKG: ECHO: Stress Test: Cardiac Cath: PCI: CT Surgery: Holter monitor: EPS: PPM: CXR: Chest CT Scan: Radiography Diagnostic Testing: Radiology Impression Chest X-Ray 03/31/22 16:35 IMPRESSION: Normal x-ray examination of the chest. Electronically Signed: Evaristo Lopez MD at 16:55 EDT , Stress Echocardiogram 04/01/22 05:55 Interpretation Summary Stress echocardiogram with Definity enhancement. 41-year-old lady with a history of chest pain. Stress protocol: Resting EKG demonstrates normal sinus rhythm with a rate of 68 bpm normal intervals are noted resting blood pressure is 128/82 mmHg. The patient exercised according to the regular Octaviano protocol for a total duration of 8 minutes and 14 seconds. The maximum heart rate attained was 130 bpm which was 73% of max impacted heart rate the maximum workload was 10.1 metabolic equivalents. The patient did experience chest discomfort at peak exercise dissipating towards the end of exercise. At rest there were no ST or T wave changes noted to suggest ischemia and at peak exercise there was [address] elevation noted in lead aVL suggestive of ischemia in the lateral lead. There was approximately 4.[address] depression noted in lead V4, V5 and V6. The peak blood pressure was 160/84 mmHg. The patient was administered 1 tablet sublingual nitroglycerin at peak exercise. Stress echocardiogram. The resting echocardiographic evaluation demonstrated an estimated ejection fraction of 40% with mid and apical lateral hypokinesis. At peak exercise there was thickening and improvement in left ventricular systolic function by the mid lateral wall became nearly akinetic suggesting an ischemic zone in this area. The estimated ejection fraction was 50%. Conclusion: Abnormal exercise stress echo with evidence of mid lateral ischemia. Chest discomfort suggestive of angina. Ordering Physician: Alexus Tello Referring Physician: Jose English Performed By: Елена Hopkins RDCS
--- NOTE | 2022-04-01 11:42 | PN.HOSP_ITS ---
Subjective Subjective Patient did have her stress test this morning it was found to be abnormal. Currently awaiting cardiac catheterization. Complaining of some mild chest pain currently and did receive some nitroglycerin post stress echo. Objective Data Objective Data Vital Signs: Vital Signs Temp Pulse Resp BP Pulse Ox O2 Del Method 97.9 F 81 16 157/96 H 95 Room Air 04/01/22 11:05 04/01/22 11:05 04/01/22 11:05 04/01/22 11:05 04/01/22 11:05 04/01/22 11:05 Oxygen Delivery Method Room Air Weight: 92.2 kg Body Mass Index (BMI) 33.8 Intake & Output: Intake and Output for Last 24 Hours 03/30/22 03/31/22 04/01/22 23:59 23:59 23:59 Intake Total 252.5 / 252.5 880 / 880 Balance 252.5 / 252.5 880 / 880 Lab / Micro Data Result Diagrams: 04/01/22 06:06 04/01/22 06:06 Labs: Laboratory Results - last 24 hr 03/31/22 16:15: WBC 6.9, RBC 4.99, Hgb 14.9, Hct 42.1, MCV 84.4, MCH 29.9, MCHC 35.4, RDW Std Deviation 37.2, RDW Coeff of Sathish 12.1, Plt Count 370, MPV 9.8, Immature Gran % (Auto) 0.100, Neut % (Auto) 63.8, Lymph % (Auto) 27.7, [place] % (Auto) 7.1, Eos % (Auto) 0.7, Baso % (Auto) 0.6, Absolute Neuts (auto) 4.4, Absolute Lymphs (auto) 1.92, Nucleated RBC % 0 03/31/22 16:15: D-Dimer Quant (PE/DVT) 0.35 03/31/22 16:15: Sodium 137, Potassium 3.8, Chloride 101, Carbon Dioxide 25.0, Anion Gap 11, BUN 15, Creatinine 1.02, Estim Creat Clear Calc 64.65, Est GFR (MDRD) Af Amer 76, Est GFR (MDRD) Non-Af 63, BUN/Creatinine Ratio 14.7, Glucose 362 H, Calcium 9.4, Troponin I High Sens 8 03/31/22 16:15: Magnesium 1.7 03/31/22 16:15: Serum , Qual NEGATIVE 03/31/22 17:40: COVID-19 (JANNIE) Not Detected 03/31/22 18:16: Troponin I High Sens 38 03/31/22 19:00: Troponin I High Sens 49 03/31/22 22:00: POC Glucose 333 H 04/01/22 00:30: Troponin I High Sens 57 H 04/01/22 06:06: WBC 6.3, RBC 4.34, Hgb 12.9, Hct 37.3, MCV 85.9, MCH 29.7, MCHC 34.6, RDW Std Deviation 38.0, RDW Coeff of Sathish 12.0, Plt Count 317, MPV 9.3, Immature Gran % (Auto) 0.300, Neut % (Auto) 52.9, Lymph % (Auto) 35.2, [place] % (Auto) 9.4, Eos % (Auto) 1.6, Baso % (Auto) 0.6, Absolute Neuts (auto) 3.3, Absolute Lymphs (auto) 2.20, Nucleated RBC % 0 04/01/22 06:06: Sodium 138, Potassium 4.0, Chloride 108 H, Carbon Dioxide 24.0, Anion Gap 6, BUN 13, Creatinine 0.70, Estim Creat Clear Calc 94.21, Est GFR (MDRD) Af Amer 118, Est GFR (MDRD) Non-Af 98, BUN/Creatinine Ratio 18.6, Glucose 214 H, Calcium 8.6, Total Bilirubin 0.30, AST 40 H, ALT 85 H, Alkaline Phosphatase 146 H, Total Protein 6.5, Albumin 3.2, Globulin 3.3, A lbumin/Globulin Ratio 1.0, Triglycerides 382 H, Cholesterol 212 H, LDL Cholesterol 110, VLDL Cholesterol 76 H, HDL Cholesterol 26 L 04/01/22 06:06: Hemoglobin A1c 10.1 H 04/01/22 06:40: POC Glucose 231 H Radiography Diagnostic Testing: Radiology Impression Chest X-Ray 03/31/22 16:35 IMPRESSION: Normal x-ray examination of the chest. Electronically Signed: Evaristo Lopez MD at 16:55 EDT , Stress Echocardiogram 04/01/22 05:55 Interpretation Summary Stress echocardiogram with Definity enhancement. 41-year-old lady with a history of chest pain. Stress protocol: Resting EKG demonstrates normal sinus rhythm with a rate of 68 bpm normal intervals are noted resting blood pressure is 128/82 mmHg. The patient exercised according to the regular Octaviano protocol for a total duration of 8 minutes and 14 seconds. The maximum heart rate attain ed was 130 bpm which was 73% of max impacted heart rate the maximum workload was 10.1 metabolic equivalents. The patient did experience chest discomfort at peak exercise dissipating towards the end of exercise. At rest there were no ST or T wave changes noted to suggest ischemia and at peak exercise there was [address] elevation noted in lead aVL suggestive of ischemia in the lateral lead. There was approximately 4.[address] depression noted in lead V4, V5 and V6. The peak blood pressure was 160/84 mmHg. The patient was administered 1 tablet sublingual nitroglycerin at peak exercise. Stress echocardiogram. The resting echocardiographic evaluation demonstrated an estimated ejection fraction of 40% with mid and apical lateral hypokinesis. At peak exercise there was thickening and improvement in left ventricular systolic function by the mid lateral wall became nearly akinetic suggesting an ischemic zone in this area. The estimated ejection fraction was 50%. Conclusion: Abnormal exercise stress echo with evidence of mid lateral ischemia. Chest discomfort suggestive of angina. Ordering Physician: Alexus Tello Referring Physician: Jose English Performed By: Елена Hopkins RDCS Physical Exam Const alert, oriented x3 and well nourished Constitutional Narrative: Obese, middle-aged white female sitting up in bed, appears older than stated age, family at bedside, patient appears nontoxic and in no distress at this time HEENT head/scalp atraumatic and moist oral mucous membranes HEENT Narrative: Mallampati 3, no thrush Resp normal respiratory effort, no retractions, no use of accessory muscles and clear to auscultation bilaterally Auscultation: Negative for crackles, rales, rhonchi or wheezes Cardio regular rate, regular rhythm, S1 normal heart sound, S2 normal heart sound, no murmurs, no rub, no gallops, no clicks and no JVD GI normal to inspection, nondistended, normoactive bowel sounds, soft to palpation and non-tender; Negative for hepatosplenomegaly Extremity no clubbing, cyanosis or edema Extremity Narrative: Few varicose veins noted distal lower extremities but otherwise unremarkable to inspection Neuro oriented x3, moves all extremities and no focal motor deficits Sensorium / Orientation: awake, alert, oriented to person, oriented to place and oriented to time Speech: speech normal Psych affect normal Assessment & Plan Assessment/Plan (1) Chest pain: (2) Abnormal stress test: (3) Transaminitis: (4) Hypertriglyceridemia: PLAN: Plan Chest pain with an abnormal stress test -Cardiac catheterization later today -Continue aspirin 81 mg daily -Add Lipitor to 80 mg -Total cholesterol is 212/LDL 110/HDL 26/triglycerides 382 -Would recommend discontinuing meloxicam/NSAIDs/ibuprofen on discharge -We will add metoprolol 25 mg p.o. twice daily and lisinopril 5 mg p.o. twice daily -Cardiology consultation Transaminitis -Etiology unclear however could be fatty liver -We will obtain right upper quadrant ultrasound to evaluate the liver -Will need to be monitored closely with initiation of statin -Recommend follow-up LFTs in 2 to 4 weeks after discharge Hypertriglyceridemia -Likely related to uncontrolled blood sugars -Current A1c is 10.3 -Would recommend improved control of her blood sugars before adding fenofibrate Hyperlipidemia -LDL is 110 with a total cholesterol of 212 -Add atorvastatin 80 mg daily Hypertension -Patient currently is not on any shins-add metoprolol 25 twice daily -At lisinopril for grams daily -Avoid NSAIDs DM-2 -Uncontrolled with a hemoglobin of 10.3 -Currently on Trulicity and metformin 1000 p.o. twice daily at home -We will need much tighter control to help triglycerides and decreased risk factors with CAD -Continue sliding scale for coverage -Recommend outpatient follow-up with endocrinology after discharge GERD -Continue PPI Tobacco abuse -Recommend cessation -Continue Wellbutrin -Continue nicotine patch Obesity -Recommend weight loss -Complicates treatment, prognosis, outcomes Asthma -Patient is not on any chronic regimen -As needed albuterol -Strongly encouraged tobacco cessation Anxiety/depression -Continue Wellbutrin DVT prophylaxis -SCDs -Lovenox CODE STATUS Full code Charges/Coding Visit Charges Inpatient E&M: 99928 Subs Hosp L2
--- NOTE | 2022-04-01 11:59 | CL.D_ITS ---
Patient Name: PHAM MARIA Study Date: 04/01/2022 Performing: Jose English MD Ht: 65 inches 165.1 cm : 1980 Wt: 203.27 lbs 92.2 kg Age: 41 Gender: female BSA: 1.99 PROCEDURE(S) PERFORMED DC01-(85398)LHC/COR/LV IC12-(70204/[id number])ANA W/WO PTCA, SINGLE CORONARY ARTERY CLINICAL PROFILE AND INDICATIONS Indications: New Onset Angina <= 2 months Heart Failure: None Stress/Imaging Stress Echocardiogram: Yes Result: Positive High RiskStress Echocardiogram: Positive High Risk CAD Presentations: Unstable angina. CONCLUSIONS Severe single-vessel coronary disease involving the proximal diagonal branch of the LAD. Mild LAD disease and mild left circumflex disease and mild left ventricular systolic dysfunction with anterolateral hypokinesis. RECOMMENDATIONS Referred for immediate PCI DESCRIPTION OF PROCEDURE The patient arrived to the procedure lab. The risks and benefits of the procedure as well as a full description of our services here and current unavailability of surgical backup were fully explained to the patient and/or their significant other prior to the catheterization. The Timeout was completed, verifying the correct patient and procedure. The patient's procedural site was prepped and draped in the usual fashion. Local anesthetic was given subcutaneously to right radial region with Lidocaine 2%. Using a modified Seldinger technique, arterial access was obtained via the right radial artery, a 6Fr sheath was inserted. Right Coronary Artery selective angiography was then performed in multiple views using a 5 Fr. 4.0 Herndon catheter. Left Coronary Artery selective angiography was performed in multiple views using a 5 Fr. 4.0 Herndon catheter. Left Ventriculography was performed in MIKE projection using a 5 Fr. Pigtail catheter. Simultaneous pressures were then recorded. CORONARY ANGIOGRAPHY DOMINANCE: Right Dominant LEFT HEART ASSESSMENT Left Ventricular Ejection Fraction: by LV Gram 40 % Anterior Hypokinesis - Mild. Lateral Hypokinesis - Moderate Depressed Left Ventricular systolic function LEFT MAIN: Angiographically normal LEFT ANTERIOR DESCENDING ARTERY: Mild luminal irregularities DIAGONAL 1: Proximal - 95 % Stenosis CIRCUMFLEX ARTERY: MID CIRC: Moderate luminal irregularities up to 50% RIGHT CORONARY ARTERY: No significant disease noted COMPLICATIONS PROCEDURE MEDICATIONS Fentanyl 50 mcg IV Versed 1 mg IV Versed 1 mg IV Versed 1 mg IV Fentanyl 25 mcg IV Oxygen: 2 L/min via nasal cannula Benadryl 25 mg IV 04/01/2022 11:28:36 Brilinta 180 mg PO @ 04/01/2022 11:52:28 Heparin given IA 04/01/2022 11:38:58 Heparin 5000 unit(s) IV 04/01/2022 11:53:52 Solu-medrol 125 mg IV 04/01/2022 11:28:44 SUMMARY OF HEMODYNAMIC DATA Time AIR REST ECG 11:25:00 AO 144/84 (110) SA 11:41:37 LV 121/9, 15 11:47:34 LV 149/8, 17 11:47:41 LV 126/7, 16 11:48:22 LVp 129/8, 16 11:48:25 AOp 134/74 (100) 11:48:30 AO 167/79 (115) 11:55:12 11:55:27 Signed By Jose English MD On 04/01/2022 11:58:39 Jose English MD
--- NOTE | 2022-04-01 12:44 | CL.I_ITS ---
Patient Name: PHAM MARIA Study Date: 04/01/2022 Performing: Ben Barrera MD Ht: 65 inches 165.1 cm : 1980 Wt: 203.5 lbs 92.2 kg Age: 41 Gender: female BSA: 1.99 PROCEDURE(S) PERFORMED IC12-(18292/C9600)ANA W/WO PTCA, SINGLE CORONARY ARTERY CLINICAL PROFILE AND CO-MORBIDITIES Indications: New Onset Angina <= 2 months Heart Failure: None Stress/Imaging Stress Echocardiogram: Yes Result: Positive High Risk Stress Echocardiogram: Positive High Risk CAD Presentations: Unstable angina. CONCLUSIONS Successful ANA to pD1 RECOMMENDATIONS DESCRIPTION OF PROCEDURE The patient arrived to the procedure lab. The risks and benefits of the procedure as well as a full description of our services here and current unavailability of surgical backup were fully explained to the patient and/or their significant other prior to the catheterization. The Timeout was completed, verifying the correct patient and procedure. The patient's procedural site was prepped and draped in the usual fashion. Local anesthetic was given subcutaneously to right radial region with Lidocaine 2% Using a modified Seldinger technique,arterial access was obtained via the right radial artery, a 6Fr sheath was inserted. Right Coronary Artery selective angiography was then performed in multiple views using a 5 Fr. 4.0 [place] catheter. Left Coronary Artery selective angiography was performed in multiple views using a 5 Fr. 4.0 [place] catheter. Left Ventriculography was performed in URUGUAYAN projection using a 5 Fr. [place] catheter. Simultaneous pressures were then recorded.The images were reviewed and options discussed. A decision was then made to proceed with an Intervention, IVUS or other adjunct procedure. XB 3.0 Guide catheter was inserted and engaged into the LCA. BMW Guide wire was advanced to the 1st Diagonal. 2.25 x 12 Emerge Balloon catheter was inserted. Balloon catheter was advanced across lesion in the first diagonal, proximal. PTCA balloon inflated at 10 atms for 17 secs. Angiogram performed post balloon dilatation. 2.5 x 15 Orsiro Drug Eluting stent was advanced across the lesion in the first diagonal, proximal. Angiogram performed post stent deployment. 2.75 x 12 NC Emerge Balloon catheter was inserted post stent. Angiogram performed post balloon dilatation. The arterial sheath was pulled and a TR Band was applied for hemostasis. 8cc air inserted. Distal pulse present. INTERVENTION INFORMATION LESION SITE: 1st Diagonal (Proximal) Lesion Complexity: High/C, chronic total occlusion: No, lesion at bifurcation: No, thrombus present: No, lesion length: 14 mm, culprit lesion: Yes, Previously treated lesion: No Pre Stenosis: 95 % Pre intervention ADITHYA flow: 2 PROCEDURE: Drug Eluting Stent with pre and post dilatation Post Stenosis: 0 % Post intervention ADITHYA flow: 3 Lesion Devices: Kennedy .014 BMW Daphne Straight 190cm Cardinal 6 Fr XB3.0 100cm Guide Catheter Gurvinder Sci EMERGE MR 2.25x12 BALLOON Biotronik Orsiro [place] MR ANA 2.5x15 Gurvinder Sci NC EMERGE MR 2.75x12 BALLOON COMPLICATIONS No Complications PROCEDURE MEDICATIONS Fentanyl 50 mcg IV Versed 1 mg IV Versed 1 mg IV Versed 1 mg IV Fentanyl 25 mcg IV Oxygen: 2 L/min via nasal cannula Benadryl 25 mg IV 04/01/2022 11:28:36 Brilinta 180 mg PO @ 04/01/2022 11:52:28 Heparin given IA 04/01/2022 11:38:58 Heparin 5000 unit(s) IV 04/01/2022 11:53:52 Nitro 150 mcg IA 04/01/2022 12:15:20 Solu-medrol 125 mg IV 04/01/2022 11:28:44 SUMMARY OF HEMODYNAMIC DATA Time AIR REST ECG 11:25:00 AO 144/84 (110) SA 11:41:37 LV 121/9, 15 11:47:34 LV 149/8, 17 11:47:41 LV 126/7, 16 11:48:22 LVp 129/8, 16 11:48:25 AOp 134/74 (100) 11:48:30 AO 167/79 (115) 11:55:12 AIR REST 11:55:27 AIR REST AO 180/87 (125) 12:13:16 Signed By Ben Barrera MD On 04/01/2022 12:44:01 Ben Barrera MD
--- NOTE | 2022-04-01 12:45 | EKG12_ITS ---
Test Reason : CP Blood Pressure : / mmHG Vent. Rate : 064 BPM Atrial Rate : 064 BPM P-R Int : 162 ms QRS Dur : 102 ms QT Int : 480 ms P-R-T Axes : 056 024 106 degrees QTc Int : 495 ms Normal sinus rhythm Incomplete right bundle branch block T wave abnormality, consider lateral ischemia Prolonged QT Abnormal ECG When compared with ECG of 01-APR-2022 13:37, MANUAL COMPARISON REQUIRED, DATA IS UNCONFIRMED Confirmed by EVELINA HOWARD, QUAN ([id number]), editor at large JAVI GARCIA ([id number]) on 04/05/2022 9:18:10 AM Referred By: Confirmed By:QUAN HOYT MD
[2022-04-01] MEDS: Insulin Lispro 100 UNIT/ML INSULN.PEN SC ×3 (13:55→23:29)
[2022-04-01] MEDS: 0.9% Normal Saline 1,000 ML 80 ML IV (13:58)
--- NOTE | 2022-04-01 14:09 | CRPHASE1_ITS ---
Patient Communication PHII Cardiac Rehab Discussed with Patient:: Yes Guide to Cardiac Rehab Given to Patient:: Yes Cardiac Rehab Facility Choice List Given to Patient:: Yes Choice Program [facility] CR PHII:: Communication Given to CR Envelope Patternmaker:: Jose English Phase II Cardiac Rehab:: Yes Sessions:: 36 sessions - 3 days/wk, 12 weeks Cardiac Rehabilitation Info Cardiac Rehabilitation Program Information: Cardiac Rehabilitation is important for patients like you who are recovering from a heart problem. Cardiac rehabilitation programs are recognized as integral to the continued care of the patient with coronary heart disease. The cardiac rehabilitation program is designed to optimize a patient's physical, psychological, and social functioning. Health director critical care work in cardiac rehabilitation programs and assist you with getting the treatments you need to get stronger and healthier - like exercise, healthy eating habits, and medications. Cardiac rehabilitation has been show to help people with heart problems live longer and have better life enjoyment than people who do not go to cardiac rehabilitation. Please contact the Cardiac Rehabilitation Program at [facility] at in two weeks if you have not heard from them.
--- NOTE | 2022-04-01 14:11 | CRPH1.INST_ITS ---
General Education CAD and cardiac anatomy and function:: Patient communicates acknowledgment, Needs reinforcement Explanation of diagnoses and procedures:: Patient communicates acknowledgment, Needs reinforcement Sign/Symptoms of [place]:: Patient communicates acknowledgment, Needs reinforcement Antiplatelet therapy: Patient communicates acknowledgment, Needs reinforcement Proper use of NTG-SL: Patient communicates acknowledgment, Needs reinforcement Emergency procedures and activation of EMS: Patient communicates acknowledgment, Needs reinforcement Compliance of all prescribed medications: Patient communicates acknowledgment, Needs reinforcement Smoking Patient Nicotine/Smoking Risk Factors Are:: Cigarettes Recommendations Include:: Smoking cessation strategies/Smoking packet, Participation in a smoking cessation program Nicotine/Smoking Response Code:: Patient communicates acknowledgment, Needs re inforcement Dyslipidemia Patient Dyslipidemia Risk Factors Are:: Total Cholesterol, Triglycerides, HDL, LDL Recommendations Include:: Lipid profile provided, Therapeutic Lifestyle Change dietary guidelines Dyslipidemia Response Code:: Patient communicates acknowledgment, Needs reinforcement Overweight/Obesity Patient Overweight/Obesity Risk Factors Are:: Obesity - > or = 30 Recommendations Include:: Weight loss of 5-10%, Reduced calorie diet, Exercise 5-7 times/week Overweight/Obesity:: Patient communicates acknowledgment, Needs reinforcement Hypertension Recommendations Include:: BP <130/80 if diabetic, DASH dietary guidelines, Decrease/maintain normal body weight, Moderation of ETOH Hypertension:: Patient communicates acknowledgment, Needs reinforcement Heart Disease Patient Heart Disease Risk Factors Are:: Family history of heart disease < 65 years old Recommendations Include:: Educated family members of their risk Heart Disease Response Code:: Patient communicates acknowledgment, Needs reinforcement Diabetes Patient Diabetes Risk Factors Are:: Elevated blood sugars Recommendations Include:: Maintain fasting blood sugars 70-110 md/dL, Maintain HgbA1c of 6% or less, Monitor blood sugar as prescribed, Decrease/maintain body weight Diabetes:: Patient communicates acknowledgment, Needs reinforcement Sedentary Patient Sedentary Risk Factors Are:: Lack of regular exercise Recommendations Include:: Aerobic exercise 5-7 times/week for 20-30 minutes continuously, Benefits of regular exercise, Discussed home walking program, Monitored Outpatient Cardiac Rehab Sedentary Response Code:: Patient communicates acknowledgment, Needs reinforcement Stress Patient Stress Risk Factors Are:: Patient denies stress as a risk factor Recommendations Include:: Identification of stressors, and assessment of coping skills, Stress management techniques Stress Response Code:: Patient communicates acknowledgment, Needs reinforcement
[2022-04-01 14:21] LABS: Bedside Glucose 266 mg/dL (74-106)
--- NOTE | 2022-04-01 15:10 | CASEMGMT ---
JN BURGER assessment: Face to Face with patient for initial transition planning/care coordination assessment. JN BURGER introduced self and role at [facility], pt voices understanding and consents to assessment. Pt is lying in bed in no distress on room air. Pt is A/Ox4 and answers all questions appropriately.? Care providers, pharmacy,?and demographics verified/updated. ? Presentation: Pt c/o CP for 1 hour, radiating to bilat arms Admitting dx: NSTEMI PCP: [facility] Specialists: None [facility]erred [facility]acy: [facility] Insurance: [employer] Prescription Benefit:?[employer] Living Will/HPOA: Pt does not have LW/HPOA but would like AD info and this was provided. LNOK: Ana Sifuentes, mother Living Arrangements: Pt lives with 3 children(20 yo daughter and 2 minor children) in 1 story home and states no concerns at home. Pt is independent with ADL's. Transportation: Pt states daughter drives or walks to where she need to go. Pt states no transportation concerns. DME/HHC: Pt states no current DME or need for any DME. Pt states no hx of HHC or SNF. Pt states no concerns with going home at time of discharge. Pt is unemployed. Pt states vapes daily and occasionally drinks ETOH. Pt voices no further concerns/needs. CM to follow for any further discharge planning/needs. Advised pt to ask for CM if any further questions/concerns/needs arise, voices understanding. Pt Goal: Home ? Plan[place] JN BURGER
--- NOTE | 2022-04-01 17:29 | CASEMGMT ---
JN BURGER NOTE: Pt provided w/Brilinta 30-day savings card and instructed on use. Pt denies having any questions. Kala BOX RN CM
[2022-04-01 17:46] LABS: Bedside Glucose 339 mg/dL (74-106)
[2022-04-01] MEDS: Pantoprazole Sodium 20 MG Tablet PO (18:34)
[2022-04-01] MEDS: Lisinopril 5 MG Tablet PO (18:34)
[2022-04-01] MEDS: buPROPion (XL) 300 MG TABLET.XL PO (18:34)
[2022-04-01] MEDS: Metoprolol Tartrate 25 MG Tablet PO (21:27)
[2022-04-01] MEDS: Atorvastatin Calcium 80 MG Tablet PO (21:30)
[2022-04-01] MEDS: TICAGRELOR 90 MG TABLET PO (21:30)
[2022-04-01 22:05] LABS: Glucose 470 mg/dL (74-106)
[2022-04-01] MEDS: Gabapentin 300 MG Capsule PO (22:23)
[2022-04-02] VITALS (10 sets, daily range): BP systolic 116–129; BP diastolic 79–82; PULSE 61–101; RESP 14–17; TEMP 36.4–36.7; O2SAT 98–100
[2022-04-02 01:21] LABS: Bedside Glucose 344 mg/dL (74-106)
[2022-04-02] MEDS: Insulin Lispro 100 UNIT/ML INSULN.PEN 10 UNIT SC (01:40)
[2022-04-02 01:50] LABS: Bedside Glucose 467 mg/dL (74-106)
[2022-04-02] MEDS: Insulin Lispro 100 UNIT/ML INSULN.PEN SC ×2 (07:19→14:24)
[2022-04-02 07:40] LABS: Bedside Glucose 236 mg/dL (74-106)
[2022-04-02 08:11] LABS: Hematocrit 37.9 % (37-47); Mean Corp Hgb Conc 34.3 g/dL (32-36); Mean Corpuscular Hgb 29.3 pg (27.0-32.0); Mean Corpuscular Volume 85.6 fL (81-99); Mean Platelet Vol. 9.6 fl (6.2-12.0); Platelet Count 369 K/mm3 (150-450); RBC Distribution Width CV 12.1 % (11.6-14.6); RBC Distribution Width SD 37.6 fl (35.1-43.9); Red Blood Count 4.43 M/mm3 (4.2-5.4); White Blood Count 12.4 K/mm3 (4.4-11.0)
[2022-04-02 08:25] LABS: AST(SGOT) 29 U/L (15-37); Alanine Aminotransfer ALT/SGPT 94 U/L (13-56); Albumin, Serum 3.4 g/dL (3.2-5.0); Alkaline Phosphatase 115 U/L (45-117); Anion Gap 9 (5-15); BUN 14 mg/dL (7-18); BUN/Creat Ratio 19.4 RATIO (10-20); Calcium,Total 8.9 mg/dL (8.5-10.1); Chloride 106 mmol/L (98-107); Creatinine, Serum 0.72 mg/dL (0.55-1.02); EST Glomerular Filtration Rate 94 mL/min (>60); Est Glom Filt Rate - Afr Amer 114 mL/min (>60); Estimated Creatinine Clearance 91.59 ml/min; Globulin 3.5 g/dL (2.2-4.2); Glucose 221 mg/dL (74-106); Potassium 3.8 mmol/L (3.5-5.1); Protein, Total 6.9 g/dL (6.4-8.2); Sodium Level 137 mmol/L (136-145)
[2022-04-02] MEDS: buPROPion (XL) 300 MG TABLET.XL PO (08:45)
[2022-04-02] MEDS: TICAGRELOR 90 MG TABLET PO (08:45)
[2022-04-02] MEDS: Aspirin E.C. 81 MG Tablet PO (08:45)
[2022-04-02] MEDS: Pantoprazole Sodium 20 MG Tablet PO (08:45)
[2022-04-02] MEDS: Lisinopril 5 MG Tablet PO (08:47)
[2022-04-02] MEDS: Gabapentin 300 MG Capsule PO (08:59)
[2022-04-02] MEDS: Metoprolol Tartrate 50 MG Tablet PO (08:59)
[2022-04-02] MEDS: LORazepam 2 MG/ML Syringe 1 MG IV (10:00)
--- NOTE | 2022-04-02 10:00 | EKG12_ITS ---
Test Reason : PCI Blood Pressure : / mmHG Vent. Rate : 061 BPM Atrial Rate : 061 BPM P-R Int : 152 ms QRS Dur : 092 ms QT Int : 454 ms P-R-T Axes : 049 020 077 degrees QTc Int : 457 ms Normal sinus rhythm Normal ECG Confirmed by MARGUERITE HOWARD, GAY ([id number]), photographic editor JAVI GARCIA ([id number]) on 04/06/2022 8:41:50 AM Referred By: EVELINA Confirmed By:GAY EVERETT MD
[2022-04-02] MEDS: 0.9% Saline Lock 10 ML Syringe IV (10:27)
--- NOTE | 2022-04-02 10:28 | NURSING ---
Patient unable to tolerate MRI scan.
--- NOTE | 2022-04-02 11:02 | PCM.DC.SUM ---
Providers Date of Admission: 04/01/22 Date of Discharge: 04/02/22 Primary Care Physician: Dr. Remi Nova MD Consultations 04/01/22 10:07 Consult: Cardiology Routine Consulting Provider: Jose English Reason for Consult: Abnormal Stress test EMERGENT Consult: No MD Notified: Yes Date Notified: 04/01/22 Time Notified: 10:08 Method of Notification: Text Reason For Visit: CHEST PAIN Diagnosis Discharge Diagnosis (1) Chest pain: Status: Acute Code(s): R07.9 - Chest pain, unspecified (2) Abnormal stress test: Status: Acute Code(s): R94.39 - Abnormal result of other cardiovascular function study (3) Transaminitis: Status: Acute Code(s): R74.01 - Elevation of levels of liver transaminase levels (4) Hypertriglyceridemia: Status: Acute Code(s): E78.1 - Pure hyperglyceridemia (5) NSTEMI, initial episode of care: Status: Acute Code(s): I21.4 - Non-ST elevation (NSTEMI) myocardial infarction (6) Atherosclerosis of coronary artery of [place] heart without angina pectoris: Status: Acute Code(s): I25.10 - Atherosclerotic heart disease of [place] coronary artery without angina pectoris (7) History of coronary artery stent placement: Status: Acute Code(s): Z95.5 - Presence of coronary angioplasty implant and graft Medications at Discharge Home Medications albuterol sulfate 90 mcg/actuation aerosol inhaler (Ventolin HFA) 1 - 2 puff inhalation Q4H PRN PRN Asthma 02/23/17 metformin 500 mg tablet 1,000 mg PO BID DM 02/23/17 omeprazole 20 mg capsule,delayed release 20 mg PO DAILY 02/23/17 bupropion HCl 300 mg 24 hr tablet, extended release 300 mg PO DAILY 03/31/22 dulaglutide 0.75 mg/0.5 mL subcutaneous pen injector (Trulicity) 0.75 mg subcut TH DM 03/31/22 ergocalciferol (vitamin D2) 1,250 mcg (50,000 unit) capsule (Vitamin D2) 1,250 mcg PO MCDUFFIE SUPPLEMENT 03/31/22 gabapentin 300 mg capsule 300 mg PO BID 03/31/22 aspirin 81 mg tablet,delayed release 81 mg PO BREAKFAST #0 tabs 04/02/22 atorvastatin 80 mg tablet 80 mg PO QHS #30 tabs 04/02/22 empagliflozin 10 mg tablet (Jardiance) 10 mg PO DAILY #30 tabs 04/02/22 lisinopril 5 mg tablet 5 mg PO DAILY #30 tabs 04/02/22 metoprolol tartrate 50 mg tablet 50 mg PO BID #60 tabs 04/02/22 ticagrelor 90 mg tablet (Brilinta) 90 mg PO BID #60 tabs 04/02/22 Hospital Course Operations None Procedures Cardiac catheterization, EKG, Nuclear stress test and - (Right upper quadrant ultrasound) Summary of Care Provided Minutes Spent on Discharge: 38 Hospital Course: Ms. Sifuentes is a 41-year-old white female who presented to the emergency department was [facility] on 03/31/2022 complaining of chest discomfort that she noted approximately 1 hour prior to arrival. She reported that it started at rest and she described it as a burning sensation across her chest with discomfort between her shoulder blades and down both of her arms that consisted of heaviness as well as radiation of pain into her left neck. She reported the pain was 6 out of 10 in severity on presentation was associated with mild nausea and dyspnea. She had a known history of hyperlipidemia and DM-2. She was diagnosed 6 to 7 years ago with her diabetes but did report that she was a gestational diabetic as well. She also has a history of tobacco abuse and vaping. Work-up in the ED included T97.5, heart rate 91, BP initially 186/87 with most recent repeat 137/86, respiratory rate 16, 98% on room air, CBC with WBC 6.9, hemoglobin 1114.9, platelet 370 without marked shift, D-dimer 0.35, unremarkable BMP aside glucose 362, troponin 8, chest x-ray with no acute cardiopulmonary findings, EKG with SR with nonspecific ST-T wave changes. She was admitted to the telemetry floor where she was monitored consistently on telemetry and her cardiac enzymes were cycled and trended up from 8 on admission to 57 by her fourth troponin check. A stress echo was performed and was found to be abnormal with evidence of mid lateral ischemia with associated chest discomfort suggestive of angina during the procedure. Given these findings, she was taken for cardiac catheterization at which time she was found to have a high-grade 90% subtotal occlusion of the proximal first diagonal. At that time, a ANA was placed with postprocedure ADITHYA flow of 3. With her history of diabetes we assessed the hemoglobin A1c and was found to be 10.1. We did discuss with her the importance of stricter diet and she was evaluated by the dietitian and dietary changes were discussed. She was maintained on her Trulicity and metformin upon discharge and we added Jardiance to her regimen. We also suggested follow-up with endocrinology and referral was made upon discharge. Her lipid panel showed a total cholesterol of 212/LDL of 110/HDL 26/triglycerides of 382. We started her on atorvastatin 80 mg daily and is recommended that she have follow-up LFTs and lipid panel in 3 months. We also started her on a beta-ruddy with metoprolol 50 mg p.o. twice daily and lisinopril was added 5 mg daily. She was placed on dual antiplatelet therapy with Brilinta and aspirin. Prescriptions for all 6 medications as noted above were faxed to her pharmacy prior to discharge. She was noted to have some mild transaminitis upon admission and we highly suspected fatty liver. A right upper quadrant ultrasound was obtained and did show findings consistent with fatty liver however they also suggested extrahepatic biliary ductal dilation and MRCP/ERCP was recommended to exclude choledocholithiasis. Her repeat LFTs were improved and her bilirubin was normal. She had no right upper quadrant pain and no signs of choledocholithiasis. We did attempt to get an MRCP prior to discharge however the patient did not tolerate, despite the utilization of preprocedure Ativan, this secondary to severe claustrophobia. With her lack of symptoms and normalizing laboratory data we do not feel the risk-benefit ratio is in favor of obtaining an MRCP with conscious sedation and recommend outpatient follow-up with labs and exam. She is to follow-up with her primary care physician within the next 1 to 2 weeks. She is to follow-up with cardiology within the next month. And, as noted above we recommended follow-up with endocrinology for improved glycemic control. She was discharged home in stable condition on 04/02/2022. Discharge diagnoses: NSTEMI type I Transaminitis Extrahepatic biliary ductal dilation Hypertriglyceridemia Hyperlipidemia Hypertension [id number] GERD Tobacco abuse Obesity Asthma Anxiety Depression Physical Exam Const alert, oriented x3 and well nourished Constitutional Narrative: Obese, middle-aged white female sitting up in bed cell phone,, appears older than stated age, family at bedside, patient appears nontoxic and in no distress at this time General Appearance: cooperative, comfortable, well kempt, well developed and appears older than stated age Orientation / Consciousness: awake, oriented to person, oriented to place and oriented to time Exam Limitations: no limitations HEENT normocephalic, head/scalp atraumatic and moist oral mucous membranes Eyes PERRL, EOMs intact bilaterally and conjunctivae normal Eyes Narrative: No scleral icterus Neck no lymphadenopathy, supple and no JVD Resp normal respiratory effort, no retractions, no use of accessory muscles and clear to auscultation bilaterally Resp Narrative: Diffusely diminished Auscultation: Negative for crackles, rales, rhonchi or wheezes Cardio regular rate, regular rhythm, S1 normal heart sound, S2 normal heart sound, no murmurs, no rub, no gallops, no clicks and no JVD GI normal to inspection, nondistended, normoactive bowel sounds, soft to palpation and non-tender; Negative for hepatosplenomegaly Extremity no clubbing, cyanosis or edema Extremity Narrative: Few varicose veins noted distal lower extremities but otherwise unremarkable to inspection Skin no wounds, skin turgor normal and no jaundice Skin Narrative: Right radial artery area is clean dry and intact without any significant tenderness or ecchymosis Neuro oriented x3, CN's II-XII intact bilaterally, moves all extremities and no focal motor deficits Sensorium / Orientation: awake, alert, oriented to person, oriented to place and oriented to time Speech: speech normal Motor Exam: strength 5/5 throughout Psych affect normal Weight / BMI Weight Weight: 92.2 kg Body Mass Index (BMI) 33.8 ABG / Lab / Microbiology Data Result Diagrams: 04/02/22 06:53 04/02/22 06:53 Laboratory: Laboratory Results - last 24 hr 04/01/22 13:52: POC Glucose 266 H 04/01/22 17:25: POC Glucose 339 H 04/01/22 21:25: POC Glucose 467 H* 04/01/22 21:40: Glucose 470 H* 04/02/22 00:57: POC Glucose 344 H 04/02/22 06:53: WBC 12.4 H, RBC 4.43, Hgb 13.0, Hct 37.9, MCV 85.6, MCH 29.3, MCHC 34.3, RDW Std Deviation 37.6, RDW Coeff of Sathish 12.1, Plt Count 369, MPV 9.6 04/02/22 06:53: Sodium 137, Potassium 3.8, Chloride 106, Carbon Dioxide 22.0, Anion Gap 9, BUN 14, Creatinine 0.72, Estim Creat Clear Calc 91.59, Est GFR (MDRD) Af Amer 114, Est GFR (MDRD) Non-Af 94, BUN/Creatinine Ratio 19.4, Glucose 221 H, Calcium 8.9, Total Bilirubin 0.30, AST 29, ALT 94 H, Alkaline Phosphatase 115, Total Protein 6.9, Albumin 3.4, Globulin 3.5, Albumin/Globulin Ratio 1.0 04/02/22 07:16: POC Glucose 236 H Radiography Diagnostic Testing: Radiology Impression Stress Echocardiogram 04/01/22 05:55 Interpretation Summary Stress echocardiogram with Definity enhancement. 41-year-old lady with a history of chest pain. Stress protocol: Resting EKG demonstrates normal sinus rhythm with a rate of 68 bpm normal intervals are noted resting blood pressure is 128/82 mmHg. The patient exercised according to the regular Octaviano protocol for a total duration of 8 minutes and 14 seconds. The maximum heart rate attained was 130 bpm which was 73% of max impacted heart rate the maximum workload was 10.1 metabolic equivalents. The patient did experience chest discomfort at peak exercise dissipating towards the end of exercise. At rest there were no ST or T wave changes noted to suggest ischemia and at peak exercise there was [address] elevation noted in lead aVL suggestive of ischemia in the lateral lead. There was approximately 4.[address] depression noted in lead V4, V5 and V6. The peak blood pressure was 160/84 mmHg. The patient was administered 1 tablet sublingual nitroglycerin at peak exercise. Stress echocardiogram. The resting echocardiographic evaluation demonstrated an estimated ejection fraction of 40% with mid and apical lateral hypokinesis. At peak exercise there was thickening and improvement in left ventricular systolic function by the mid lateral wall became nearly akinetic suggesting an ischemic zone in this area. The estimated ejection fraction was 50%. Conclusion: Abnormal exercise stress echo with evidence of mid lateral ischemia. Chest discomfort suggestive of angina. Ordering Physician: Alexus Tello Referring Physician: Jose English Performed By: Елена Hopkins RDCS Abdomen Ultrasound 04/01/22 07:52 IMPRESSION: 1. Extrahepatic biliary ductal dilatation. Correlation with MRCP and/or ERCP is recommended to exclude choledocholithiasis. 2. Fatty infiltration of the liver. Electronically Signed: Evaristo Lopez MD at 20:08 EDT , D/C Instructions Discharge Diet: Low fat / Low cholesterol and 1800 Calorie Control Diet Discharge Activity: Return to Normal Activity Return to work on: 04/04/22 Meaningful Use Info Meaningful Use Diagnoses (Choose all that apply): None applicable Discharge Plan Admission Admit Date/Time: 04/01/22 00:30 Primary Reason for Your Visit: Chest Pain Attending Provider: Kim Velez Primary Care Provider: Remi Nova Consulting Providers: Alexus Tello ; Jose English Discharge Orders/Prescriptions Prescriptions: New aspirin 81 mg Tablet,Delayed Release (Dr/Ec) 81 mg PO BREAKFAST Qty: 0 0RF atorvastatin 80 mg Tablet 80 mg PO QHS Qty: 30 1RF lisinopril 5 mg Tablet 5 mg PO DAILY Qty: 30 1RF metoprolol tartrate 50 mg Tablet 50 mg PO BID Qty: 60 1RF Brilinta 90 mg Tablet 90 mg PO BID Qty: 60 1RF Jardiance 10 mg tablet 10 mg PO DAILY Qty: 30 0RF Continued metformin 500 MG tablet 1,000 mg PO BID Label Comments: take 1 tablet by mouth twice a day with meals omeprazole 20 MG capsule,delayed release(DR/EC) 20 mg PO DAILY Label Comments: take 1 capsule by mouth once daily albuterol sulfate [Ventolin HFA] 1 INHALER inhaler 1 - 2 puff inhalation Q4H PRN PRN (Reason: Asthma) gabapentin 300 mg capsule 300 mg PO BID Label Comments: take 1 capsule by mouth twice a day ergocalciferol (vitamin D2) [Vitamin D2] 1,250 mcg (50,000 unit) capsule 1,250 mcg PO MCDUFFIE Label Comments: take 1 capsule by mouth every week bupropion HCl 300 mg tablet extended release 24 hr 300 mg PO DAILY Trulicity 0.75 mg/0.5 mL pen injector 0.75 mg SUBCUT TH Label Comments: inject 0.5 milliliters ( 0.75 milligrams ) subcutaneously every w... (REFER TO PRESCRIPTION NOTES). Discontinued meloxicam 15 mg tablet 15 mg PO DAILY Label Comments: take 1 tablet by mouth once daily with food for backache pain ibuprofen 200 mg Tablet 400 - 600 mg PO DAILY PRN PRN (Reason: Pain) Referrals / Follow Up: Jose English MD [Med Staff - Active Staff] - Within 1 Month (call Monday for appt) René Bean MD [Med Staff - Courtesy Staff] - See Referral Note (as soon as can be seen--> call Monday for an appt) Remi Nova MD [Primary Care Provider] - In 1 Week Disposition Disposition (needs filled in before D/C Order can be placed): Home, Self Care Charges/Coding Visit Charges Inpatient E&M: 29548 Disch Hosp
--- NOTE | 2022-04-02 11:13 | PCM.PN.CARD ---
Subjective Subjective The patient was seen and evaluated. Appears to be doing well. No cardiac complaints this morning. Objective Data Vital Signs: Vital Signs Temp Pulse Resp BP Pulse Ox O2 Del Method 98.1 F 74 14 129/79 H 100 Room Air 04/02/22 08:40 04/02/22 08:59 04/02/22 08:40 04/02/22 08:59 04/02/22 08:40 04/02/22 08:40 Oxygen Delivery Method Room Air Weight: 203 lb 4.259 oz Body Mass Index (BMI) 33.8 Intake & Output: Intake and Output for Last 24 Hours 03/31/22 04/01/22 04/02/22 23:59 23:59 23:59 Intake Total 252.5 / 252.5 1780.33 / 1780.33 Balance 252.5 / 252.5 1780.33 / 1780.33 Lab / Micro Data Result Diagrams: 04/02/22 06:53 04/02/22 06:53 Labs: Laboratory Results - last 24 hr 04/01/22 13:52: POC Glucose 266 H 04/01/22 17:25: POC Glucose 339 H 04/01/22 21:25: POC Glucose 467 H* 04/01/22 21:40: Glucose 470 H* 04/02/22 00:57: POC Glucose 344 H 04/02/22 06:53: WBC 12.4 H, RBC 4.43, Hgb 13.0, Hct 37.9, MCV 85.6, MCH 29.3, MCHC 34.3, RDW Std Deviation 37.6, RDW Coeff of Sathish 12.1, Plt Count 369, MPV 9.6 04/02/22 06:53: Sodium 137, Potassium 3.8, Chloride 106, Carbon Dioxide 22.0, Anion Gap 9, BUN 14, Creatinine 0.72, Estim Creat Clear Calc 91.59, Est GFR (MDRD) Af Amer 114, Est GFR (MDRD) Non-Af 94, BUN/Creatinine Ratio 19.4, Glucose 221 H, Calcium 8.9, Total Bilirubin 0.30, AST 29, ALT 94 H, Alkaline Phosphatase 115, Total Protein 6.9, Albumin 3.4, Globulin 3.5, Albumin/Globulin Ratio 1.0 04/02/22 07:16: POC Glucose 236 H Cardiology Labs/Tests 04/01/22 21:40: Glucose 470 H* 04/02/22 06:53: WBC 12.4 H, RBC 4.43, Hgb 13.0, Hct 37.9, MCV 85.6, MCH 29.3, MCHC 34.3, Plt Count 369, MPV 9.6 04/02/22 06:53: Sodium 137, Potassium 3.8, Chloride 106, Carbon Dioxide 22.0, Anion Gap 9, BUN 14, Creatinine 0.72, Est GFR (MDRD) Af Amer 114, Est GFR (MDRD) Non-Af 94, BUN/Creatinine Ratio 19.4, Glucose 221 H, Calcium 8.9, Total Bilirubin 0.30 Rhythm: EKG: ECHO: Stress Test: Cardiac Cath: PCI: CT Surgery: Holter monitor: EPS: PPM: CXR: Chest CT Scan: Radiography Diagnostic Testing: Radiology Impression Stress Echocardiogram 04/01/22 05:55 Interpretation Summary Stress echocardiogram with Definity enhancement. 41-year-old lady with a history of chest pain. Stress protocol: Resting EKG demonstrates normal sinus rhythm with a rate of 68 bpm normal intervals are noted resting blood pressure is 128/82 mmHg. The patient exercised according to the regular Octaviano protocol for a total duration of 8 minutes and 14 seconds. The maximum heart rate attained was 130 bpm which was 73% of max impacted heart rate the maximum workload was 10.1 metabolic equivalents. The patient did experience chest discomfort at peak exercise dissipating towards the end of exercise. At rest there were no ST or T wave changes noted to suggest ischemia and at peak exercise there was [address] elevation noted in lead aVL suggestive of ischemia in the lateral lead. There was approximately 4.[address] depression noted in lead V4, V5 and V6. The peak blood pressure was 160/84 mmHg. The patient was administered 1 tablet sublingual nitroglycerin at peak exercise. Stress echocardiogram. The resting echocardiographic evaluation demonstrated an estimated ejection fraction of 40% with mid and apical lateral hypokinesis. At peak exercise there was thickening and improvement in left ventricular systolic function by the mid lateral wall became nearly akinetic suggesting an ischemic zone in this area. The estimated ejection fraction was 50%. Conclusion: Abnormal exercise stress echo with evidence of mid lateral ischemia. Chest discomfort suggestive of angina. Ordering Physician: Alexus Tello Referring Physician: Jose English Performed By: Елена Hopkins TAM Abdomen Ultrasound 04/01/22 07:52 IMPRESSION: 1. Extrahepatic biliary ductal dilatation. Correlation with MRCP and/or ERCP is recommended to exclude choledocholithiasis. 2. Fatty infiltration of the liver. Electronically Signed: Evaristo Lopez MD at 20:08 EDT , Physical Exam Narrative Const alert, oriented x3 and well nourished Constitutional Narrative: Obese, middle-aged white female sitting up in bed, appears older than stated age, family at bedside, patient appears nontoxic and in no distress at this time HEENT head/scalp atraumatic and moist oral mucous membranes Resp normal respiratory effort, no retractions, no use of accessory muscles and clear to auscultation bilaterally Auscultation: Negative for crackles, rales, rhonchi or wheezes Cardio regular rate, regular rhythm, S1 normal heart sound, S2 normal heart sound, no murmurs, no rub, no gallops, no clicks and no JVD GI normal to inspection, nondistended, normoactive bowel sounds, soft to palpation and non-tender; Negative for hepatosplenomegaly Extremity no clubbing, cyanosis or edema Extremity Narrative: Few varicose veins noted distal lower extremities but otherwise unremarkable to inspection Neuro oriented x3, moves all extremities and no focal motor deficits Sensorium / Orientation: awake, alert, oriented to person, oriented to place and oriented to time Speech: speech normal Psych affect normal Assessment & Plan Assessment/Plan (1) History of coronary artery stent placement: PLAN: Patient presented with unstable angina and underwent angioplasty and stenting of the diagonal vessel. Appears doing well this morning. Will be discharged for outpatient follow-up.
[2022-04-02 14:51] LABS: Bedside Glucose 299 mg/dL (74-106)
[2022-04-02 16:31] LABS: Bedside Glucose 256 mg/dL (74-106)
== END 2022-04-02 15:23 | disposition home or self-care (01) | DRG 174 ==
LOC: ED 17:31 → PCU 17:46
PROVIDERS: Internal Medicine Cardiovascular Disease; Specialist; Admitting Provider Family Medicine; Emergency Provider Emergency Medicine; PCP Internal Medicine; Visit Provider Internal Medicine
DX: I21.4 Non-ST elevation (NSTEMI) myocardial infarction (principal); E11.40 Type 2 diabetes mellitus with diabetic neuropathy, unspecified; I25.110 Atherosclerotic heart disease of native coronary artery with unstable angina pectoris; J45.909 Unspecified asthma, uncomplicated; F41.9 Anxiety disorder, unspecified; I10 Essential (primary) hypertension; K21.9 Gastro-esophageal reflux disease without esophagitis; E78.00 Pure hypercholesterolemia, unspecified; F17.290 Nicotine dependence, other tobacco product, uncomplicated; Z79.84 Long term (current) use of oral hypoglycemic drugs; G89.29 Other chronic pain; Z79.82 Long term (current) use of aspirin; E66.9 Obesity, unspecified; F32.A Depression, unspecified; Z79.899 Other long term (current) drug therapy; Z82.49 Family history of ischemic heart disease and other diseases of the circulatory system
CPT/HCPCS: 36415; 71045; 76705; 80048; 80053; 80061; 82947; 82962; 83036; 83735; 84484; 84703; 85025; 85027; 85379; 87635; 92928; 93005; 93017; 93350; 93458; 97802; 99152; 99153; 99285; 99406; C1874; J7030; Q9957; Q9967; A4216; C1725; C1769; C1887; C1894; C8928; C9600; J1327; U0003; U0005

== ENCOUNTER → 2022-06-03 | Outpatient (CLI) | payer MEDICAID, SELFPAY ==
--- NOTE | 2022-06-03 13:04 | ECHOL_ITS ---
Version 2 Reason For Study: CHF Procedure This was a limited 2D transthoracic echocardiogram. Exam performed in department. Left Ventricle Normal LV size. Left ventricular systolic function is normal. The estimated ejection fraction is 60 %. No regional wall motion abnormalities noted. Right Ventricle Normal RV size. Normal systolic function. Atria Normal left atrium. Normal right atrium. Mitral Valve Normal mitral valve. Tricuspid Valve Normal tricuspid valve. Mild tricuspid valve insufficiency. Aortic Valve Trisinus/trileaflet aortic valve. Pulmonic Valve Normal pulmonic valve. Great Vessels Normal aortic root. The pulmonary artery is normal size. Normal inferior vena cava. Pericardium/Pleural No pericardial effusion. MMode/2D Measurements & Calculations LVIDd: 4.1 cm IVSd: 0.98 cm LVAd ap4: 26.3 cm2 LVIDs: 2.7 cm LVPWd: 0.93 cm LVLd ap4: 7.8 cm FS: 34.9 % EDV(MOD-sp4): 70.9 ml EDV(sp4-el): 74.9 ml LVAs ap4: 13.6 cm2 LVLs ap4: 6.8 cm ESV(MOD-sp4): 23.2 ml ESV(sp4-el): 23.2 ml EF(MOD-sp4): 67.3 % EF(sp4-el): 69.0 % SV(MOD-sp4): 47.7 ml SV(sp4-el): 51.7 ml Doppler Measurements & Calculations Ao V2 max: 150.0 cm/sec TR max shakila: 215.2 cm/sec Ao max P.0 mmHg TR max P.5 mmHg Ao V2 mean: 102.0 cm/sec Ao mean P.5 mmHg Ao V2 VTI: 26.4 cm ECHO/Echo, Limited Study Interpretation Summary Normal LV size. Left ventricular systolic function is normal. The estimated ejection fraction is 60 %. Mild tricuspid valve insufficiency. Structurally normal valves. Ordering Physician: Momo Arroyo Referring Physician: Remi Nova Performed By: Deanna Arroyo, DEYANIRA, RVT
--- NOTE | 2022-06-03 13:28 | ART_ITS ---
Reason For Study: Claudication Procedure A bilateral lower extremity continuous wave Doppler with analog waveform analysis,segmental pressures,and ankle brachial indexes without exercise. Left Segmental Pressures Left brachial= 108mmHg. Left posterior tibial artery = 123mmHg. Left dorsalis pedis artery = 114mmHg. Left digit = 97 mmHg. The left dorsalis pedis waveforms are triphasic. The left posterior tibial artery waveforms are triphasic. Right Segmental Pressures Right brachial= 112mmHg. Right posterior tibial artery = 113mmHg. Right dorsalis pedis artery = 130mmHg. Right digit = 89 mmHg. The right dorsalis pedis waveforms are triphasic. The right posterior tibial artery waveforms are triphasic. Indices The right ankle brachial index by the dorsalis pedis is 1.16. The right ankle brachial index by the posterior tibial artery is 1.01. The right digital-brachial index is 0.79. The left ankle brachial index by the dorsalis pedis is 1.02. The left ankle brachial index by the posterior tibial artery is 1.10. The left digital-brachial index is 0.87. VL/Lower Ext Art Exam w/o Exercis Interpretation Summary Right SERGEY 1.16, normal. Doppler/PVR waveforms of the right leg normal at rest. TBI diminished, digit disease vs spasm. Left SERGEY 1.1, normal. TBI and Doppler/PVR waveforms of the left leg normal at r est. Ordering Physician: Momo Arroyo Referring Physician: Remi Nova M.D. Performed By: Yulissa Erickson RVT
== END | disposition home or self-care (01) ==
LOC: CVS 13:03
PROVIDERS: PCP Internal Medicine; Referring Provider Nurse Practitioner Family; Visit Provider Nurse Practitioner Family
DX: I25.5 Ischemic cardiomyopathy (principal); I73.9 Peripheral vascular disease, unspecified
CPT/HCPCS: 93308; 93923

== ENCOUNTER 2022-12-23 19:26 | Emergency (ER) | payer MEDICAID, SELFPAY ==
[2022-12-23 19:26] VITALS: BP 150/91; PULSE 66; RESP 19; TEMP 36.7; O2SAT 99; BMI 33.3
--- NOTE | 2022-12-23 20:06 | EDS_ITS ---
HPI History of Present Illness Chief Complaint: Dental PFSH PFSH Medical History Abnormal stress test Anxiety and depression Asthma Atherosclerosis of coronary artery of [place] heart without angina pectoris Diabetes mellitus, type 2 Engages in vaping GERD (gastroesophageal reflux disease) High cholesterol Hyperlipidemia Hypertriglyceridemia Ischemic cardiomyopathy Non-ST elevated myocardial infarction (non-STEMI) (04/01/22) Obesity Tobacco use Home Medications albuterol sulfate 90 mcg/actuation aerosol inhaler (Ventolin HFA) 1 - 2 puff inhalation Q4H PRN PRN Asthma 02/23/17 [History Last Taken 03/31/22] metformin 500 mg tablet 1,000 mg PO BID DM 02/23/17 [History Last Taken 03/31/22] omeprazole 20 mg capsule,delayed release 20 mg PO DAILY 02/23/17 [History Last Taken 03/31/22] bupropion HCl 300 mg 24 hr tablet, extended release 300 mg PO DAILY mental health 03/31/22 [History Last Taken 03/31/22 13:00] dulaglutide 0.75 mg/0.5 mL subcutaneous pen injector (Trulicity) 0.75 mg subcut TH DM 03/31/22 [History Last Taken 03/24/22] ergocalciferol (vitamin D2) 1,250 mcg (50,000 unit) capsule (Vitamin D2) 1,250 mcg PO MCDUFFIE SUPPLEMENT 03/31/22 [History Last Taken 03/27/22] gabapentin 300 mg capsule 300 mg PO BID nerve pain 03/31/22 [History Last Taken 03/31/22] aspirin 81 mg tablet,delayed release 81 mg PO BREAKFAST #90 tabs 04/28/22 [Rx Last Taken Unknown] atorvastatin 80 mg tablet 80 mg PO QHS #30 tabs 04/28/22 [Rx Last Taken Unknown] buspirone 5 mg tablet 5 mg PO TID PRN 04/28/22 [History Last Taken Unknown] carvedilol 6.25 mg tablet (Coreg) 6.25 mg PO BID #60 tabs 04/28/22 [Rx Last Taken Unknown] lisinopril 5 mg tablet 5 mg PO DAILY #90 tabs 04/28/22 [Rx Last Taken Unknown] ondansetron 4 mg disintegrating tablet 4 mg translingual Q6H PRN 04/28/22 [History Last Taken Unknown] ticagrelor 90 mg tablet (Brilinta) 90 mg PO BID #180 tabs 04/28/22 [Rx Last Taken Unknown] empagliflozin 10 mg tablet (Jardiance) 10 mg PO DAILY #30 tabs 05/16/22 [Rx Last Taken Unknown] amoxicillin 875 mg-potassium clavulanate 125 mg tablet 1 tab PO BID #14 tabs 12/23/22 [Rx Last Taken Unknown] Allergy/AdvReac Type Severity Reaction Status Date / Time mometasone furoate Allergy Swelling Verified 12/23/22 19:28 [From Nasonex] pioglitazone [From Actos] Allergy Swelling Verified 12/23/22 19:28 Sulfa (Sulfonamide Allergy Rash Verified 12/23/22 19:28 Antibiotics) Fish Containing Products AdvReac Nausea/Vom/ Verified 12/23/22 19:28 Diarrhea shellfish derived AdvReac Nausea/Vom/ Verified 12/23/22 19:28 Diarrhea Family History (Updated 04/28/22 @ 09:53 by Momo Arroyo PERFORMANCE REPORTER, PERFORMANCE REPORTER-C) Mother CAD (coronary artery disease) Heart disease Hypertension Father CVA (cerebral vascular accident) S/P CABG x 3 Cancer Colon CA Grandfather Heart disease Mother's side- at 39 d/t [place] Aunt Heart disease CAD (coronary artery disease) Multiple Aunt's with CAD Uncle CAD (coronary artery disease) Multiple Uncles with CAD Other Kidney disease Surgical History History of History of coronary artery stent placement (04/01/22) History of surgery of uterus Social History household members: children housing: house Smoking Status: Current every day smoker tobacco type: e-cigarettes Electronic Cigarette Use: with nicotine how long ago did patient quit smoking: Quit cigarette tobacco use 1 wk prior, smoked ~ 1/4 pack until quit->vaping alcohol intake: current alcohol intake frequency: holidays/special occasions only substance use type: does not use caffeine: Yes Type: coffee Number of servings: 2 EXAM Physical Exam Const Vital Signs: 12/23/22 19:26 Temperature 98.1 F Temperature Source Temporal Pulse Rate 66 Respiratory Rate 19 H Blood Pressure 150/91 H Blood Pressure Mean 110 Pulse Ox 99 Oxygen Delivery Method Room Air MDM MDM MDM Narrative Medical decision making narrative: HISTORY OF PRESENT ILLNESS: 42-year-old female here with right lower dental pain for the last 2 to 3 days. She states she has a history of a chipped tooth she has frequent dental infections. She states last Monday she had worsening pain. She denies fever, drooling, difficulty swallowing, neck stiffness, swelling underneath the jaw. REVIEW OF SYSTEMS: Pertinent positives: Dental pain Pertinent negatives: Fever, drooling, neck stiffness PHYSICAL EXAM: Nursing triage notes reviewed, Vital signs reviewed Constitutional: please see mdm HENT: MMM, no evidence of dental abscess, no submandibular edema, no tonsillar exudates or erythema, uvula midline, patient was controlling secretions, no drooling Eyes: Pupils equal round and reactive to light, Extraocular muscles intact Neck: No stridor, no JVD, full neck ROM Lungs: Clear to auscultation, No wheezing or rales. No increased work of breathing, no conversational dyspnea, no accessory muscle use, no nasal flaring. No respiratory distress noted Heart: Regular rate and rhythm, No murmurs, No rubs and No gallops, 2+ distal pulses (radial, femoral, posterior tibial) in all extremities MEDICAL DECISION MAKING: Chief Complaint: Dental pain [facility] Narrative: The patient was hemodynamically stable, afebrile, nontoxic-appearing. I considered the following differential diagnosis: Dental abscess, ANUG, Ludewig's angina, RPA, PLANETARIUM TECHNICIAN, dental caries, gingivitis She will be given Augmentin for antimicrobial prophylaxis. No signs of dental abscess, ANUG, Ludewig's angina, RPA, PLANETARIUM TECHNICIAN. No clear life-limiting etiology to be ascertained. Patient tolerated Augmentin here. She was given close dental follow-up. Factors affecting care: History of type 2 diabetes Social determinants of health: Current everyday smoker History obtained from others: The patient's son Shared decision making: I will have a discussion with the patient and or visitors regarding risk/benefits of further testing or admission. They will be made aware of of the risk/benefits inherent in this decision they will be given the opportunity to voice understanding. Consults: None Discharge Plan Triage Chief Complaint: Dental ED Provider: Azar Reece Dx/Rx/DC Orders Clinical Impression: Dental infection Instructions: ED Dental Pain Prescriptions: New amoxicillin-pot clavulanate 875-125 mg tablet 1 tab PO BID Qty: 14 0RF No Action ondansetron 4 mg tablet,disintegrating 4 mg translingual Q6H PRN Label Comments: dissolve 1 tablet by mouth every 6 hours if needed for nausea and vomiting buspirone 5 mg tablet 5 mg PO TID PRN Label Comments: take 1 tablet by mouth three times a day carvedilol [Coreg] 6.25 mg tablet 6.25 mg PO BID Qty: 60 11RF Rx Instructions: must administer with a meal/food atorvastatin 80 mg tablet 80 mg PO QHS Qty: 30 12RF lisinopril 5 mg tablet 5 mg PO DAILY Qty: 90 3RF Brilinta 90 mg tablet 90 mg PO BID Qty: 180 3RF aspirin 81 mg tablet,delayed release (DR/EC) 81 mg PO BREAKFAST Qty: 90 3RF metformin 500 MG tablet 1,000 mg PO BID Label Comments: take 1 tablet by mouth twice a day with meals omeprazole 20 MG capsule,delayed release(DR/EC) 20 mg PO DAILY Label Comments: take 1 capsule by mouth once daily albuterol sulfate [Ventolin HFA] 1 INHALER inhaler 1 - 2 puff inhalation Q4H PRN PRN (Reason: Asthma) gabapentin 300 mg capsule 300 mg PO BID Label Comments: take 1 capsule by mouth twice a day ergocalciferol (vitamin D2) [Vitamin D2] 1,250 mcg (50,000 unit) capsule 1,250 mcg PO MCDUFFIE Label Comments: take 1 capsule by mouth every week bupropion HCl 300 mg tablet extended release 24 hr 300 mg PO DAILY Trulicity 0.75 mg/0.5 mL pen injector 0.75 mg SUBCUT TH Label Comments: inject 0.5 milliliters ( 0.75 milligrams ) subcutaneously every w... (REFER TO PRESCRIPTION NOTES). Jardiance 10 mg tablet 10 mg PO DAILY Qty: 30 11RF Primary Care Provider: Remi Nova Referrals: Remi Nova MD [Primary Care Provider] - Activity Restrictions/Additional Instructions: Thank you for trusting us with your care today! Please take Tylenol (2 pills, 650 mg), ibuprofen (2 pills, 400 mg) every 6 hours as needed for pain and fever control. Please take antibiotics as prescribed. Please complete entire antibiotic course Please return to the emergency department if your symptoms change or worsen. Specifically if develop vomiting, you are unable to take your medicine, you develop neck stiffness, fever, swelling underneath your jaw or inability to swallow. Please follow with your local dentist for further outpatient evaluation and management. Disposition Disposition: Home, Self Care
[2022-12-23] MEDS: Amox/Clavulanate 875 MG Tablet PO (20:14)
[2022-12-23 20:16] VITALS: PULSE 87; RESP 16; O2SAT 98
== END 2022-12-23 20:16 | disposition home or self-care (01) ==
LOC: ED 20:11
PROVIDERS: Emergency Provider Emergency Medicine; PCP Internal Medicine; Visit Provider Emergency Medicine
DX: K04.7 Periapical abscess without sinus (principal); E11.9 Type 2 diabetes mellitus without complications; I25.10 Atherosclerotic heart disease of native coronary artery without angina pectoris; I25.2 Old myocardial infarction; E78.00 Pure hypercholesterolemia, unspecified; F17.290 Nicotine dependence, other tobacco product, uncomplicated; E66.9 Obesity, unspecified; Z68.33 Body mass index [BMI] 33.0-33.9, adult; Z95.5 Presence of coronary angioplasty implant and graft; Z79.82 Long term (current) use of aspirin; Z79.84 Long term (current) use of oral hypoglycemic drugs; Z79.899 Other long term (current) drug therapy
CPT/HCPCS: 99283

== ENCOUNTER 2023-09-01 20:20 | Emergency (ER) | payer MEDICAID, SELFPAY ==
--- NOTE | 2023-09-01 20:20 | RAD_ITS ---
STUDY: X-RAY CHEST REASON FOR EXAM: Female, 42 years old. chest pain TECHNIQUE: Single AP portable view of the chest. COMPARISON: 03/31/2022. FINDINGS: The lungs are clear and expanded. There is no demonstrated pleural abnormality. Normal size heart. Normal mediastinum and escobar. Normal visualized pulmonary arteries. Normal visualized aortic arch and descending thoracic aorta. Normal visualized thoracic spine. Normal visualized ribs, clavicles, and shoulders. There is no demonstrated abnormality of the visualized soft tissue structures of the upper abdomen. RAD/Chest 1 View (Portable) IMPRESSION: Normal x-ray examination of the chest. Electronically Signed: Nathalie Sierra MD at 21:40 EST ,
[2023-09-01 20:21] VITALS: BP 164/73; PULSE 85; RESP 18; TEMP 36.2; O2SAT 100; BMI 33.4
[2023-09-01 20:36] VITALS: O2SAT 96
--- NOTE | 2023-09-01 20:41 | EDS_ITS ---
HPI History of Present Illness Chief Complaint: Chest Pain Informant: patient Onset/Context/Timing Onset: Hours Narrative Narrative: Patient presents with a 1 hour history of left shoulder and arm pain with some pain radiating out of her left upper chest. She states he was talking on the phone with at the time. She complains of pain around her left shoulder that radiates down her left arm. She states she has had a few sharp pains in the left upper chest. In March 2022 she was admitted for chest pain. She had abnormal stress test and ultimately required 1 stent during a cardiac cath. PFSH PFSH Medical History Abnormal stress test Anxiety and depression Asthma Atherosclerosis of coronary artery of [place] heart without angina pectoris Diabetes mellitus, type 2 Engages in vaping GERD (gastroesophageal reflux disease) High cholesterol Hyperlipidemia Hypertriglyceridemia Ischemic cardiomyopathy Non-ST elevated myocardial infarction (non-STEMI) (04/01/22) Obesity Tobacco use Home Medications albuterol sulfate 90 mcg/actuation aerosol inhaler (Ventolin HFA) 1 - 2 puff inhalation Q4H PRN PRN Asthma 02/23/17 [History Last Taken 03/31/22] metformin 500 mg tablet 1,000 mg PO BID DM 02/23/17 [History Last Taken 03/31/22] omeprazole 20 mg capsule,delayed release 20 mg PO DAILY 02/23/17 [History Last Taken 03/31/22] bupropion HCl 300 mg 24 hr tablet, extended release 300 mg PO DAILY mental health 03/31/22 [History Last Taken 03/31/22 13:00] ergocalciferol (vitamin D2) 1,250 mcg (50,000 unit) capsule (Vitamin D2) 1,250 mcg PO MCDUFFIE SUPPLEMENT 03/31/22 [History Last Taken 03/27/22] gabapentin 300 mg capsule 300 mg PO BID nerve pain 03/31/22 [History Last Taken 03/31/22] buspirone 5 mg tablet 5 mg PO TID PRN 04/28/22 [History Last Taken Unknown] ondansetron 4 mg disintegrating tablet 4 mg translingual Q6H PRN 04/28/22 [History Last Taken Unknown] carvedilol 6.25 mg tablet (Coreg) 6.25 mg PO BID #60 tabs 05/23/23 [Rx Last Taken Unknown] aspirin 81 mg tablet,delayed release 81 mg PO BREAKFAST #90 tabs 06/14/23 [Rx Last Taken Unknown] atorvastatin 80 mg tablet 80 mg PO QHS #90 tabs 06/22/23 [Rx Last Taken Unknown] lisinopril 5 mg tablet 5 mg PO DAILY #90 tabs 06/22/23 [Rx Last Taken Unknown] empagliflozin 10 mg tablet (Jardiance) 10 mg PO DAILY #30 tabs 07/25/23 [Rx Last Taken Unknown] Allergy/AdvReac Type Severity Reaction Status Date / Time mometasone furoate Allergy Swelling Verified 09/01/23 20:23 [From Nasonex] pioglitazone [From Actos] Allergy Swelling Verified 09/01/23 20:23 Sulfa (Sulfonamide Allergy Rash Verified 09/01/23 20:23 Antibiotics) Fish Containing Products AdvReac Nausea/Vom/ Verified 09/01/23 20:23 Diarrhea shellfish derived AdvReac Nausea/Vom/ Verified 09/01/23 20:23 Diarrhea Family History Mother CAD (coronary artery disease) Heart disease Hypertension Father CVA (cerebral vascular accident) S/P CABG x 3 Cancer Colon CA Grandfather Heart disease Mother's side- at 39 d/t [place] Aunt Heart disease CAD (coronary artery disease) Multiple Aunt's with CAD Uncle CAD (coronary artery disease) Multiple Uncles with CAD Other Kidney disease Surgical History History of History of coronary artery stent placement (04/01/22) History of surgery of uterus Social History household members: children housing: house Smoking Status: Current every day smoker tobacco type: e-cigarettes Electronic Cigarette Use: with nicotine how long ago did patient quit smoking: Quit cigarette tobacco use 1 wk prior, smoked ~ 1/4 pack until quit->vaping alcohol intake: current alcohol intake frequency: holidays/special occasions only substance use type: does not use caffeine: Yes Type: coffee Number of servings: 2 ROS ROS ED Constitutional Constitutional ED: Denies chills or fever(s) Eyes Eyes: Denies discharge from eye(s) ENT ENT ED: Denies discharge from eye(s), rhinorrhea or sore throat Cardiovascular Cardiovascular: Reports chest pain; Denies palpitations Respiratory/Chest Respiratory/Chest: Denies cough or dyspnea Gastrointestinal Gastrointestinal: Denies abdominal pain, nausea or vomiting Genitourinary Genitourinary ED: Denies dysuria Musculoskeletal Musculoskeletal: Reports extremity pain; Denies back pain Integumentary Denies Abrasions or rash Neurologic Neurologic: Denies headache(s) or weakness Psychiatric Psychiatric: Denies anxiety or depression Allergic/Immunologic Allergic/Immunologic ED: Denies lip swelling or urticaria EXAM Physical Exam Const Vital Signs: 09/01/23 20:21 09/01/23 20:36 09/01/23 20:37 Temperature 97.2 F L Temperature Source Temporal Pulse Rate 85 Respiratory Rate 18 Respiratory Effort Normal Blood Pressure 164/73 H Blood Pressure Mean 103 Pulse Ox 100 96 Oxygen Delivery Method Room Air Room Air Positive well nourished and well developed General Appearance ED: well developed HEENT Reports moist mucous membranes Eyes EOMs intact bilaterally Chest Wall inspection of chest normal Chest Narrative: Mild left upper chest wall tenderness to palpation. No crepitus. Resp normal respiratory effort and clear to auscultation bilaterally Cardio regular rate and regular rhythm GI soft to palpation and non-tender Extremity normal to inspection Extremity Narrative: Full range of motion of all extremities. Strong distal pulses throughout. Neuro oriented x3 and no sensory deficits noted Motor Exam: strength 5/5 throughout Psych mental status grossly normal Skin no rashes or lesions noted Heart Score History: Slightly/Non-Suspicious ECG: Normal Age: >45 - <65 years Risk Factors: >/= 3 Risk Factors or History of CAD Troponin: </= Normal Limit Score: 3 MDM MDM MDM Narrative Medical decision making narrative: Patient placed on phototypesetting equipment monitor. IV line initiated. Patient did take 1 baby aspirin prior to arrival and is given 3 additional baby aspirin here. Labwork obtained to evaluate for leukocytosis, anemia, and electrolyte derangement. Chest x-ray obtained to evaluate for acute lung pathology, cardiac size, or mediastinal abnormality. History & Record Review Discussion w/independent historian: Patient Additional record(s) reviewed:: Prior outpatient record, Prior ED visit and Prior labs Lab Data Attestation: I reviewed the patient's lab results. Labs: Laboratory Results - last 24 hr 09/01/23 09/01/23 09/01/23 20:43 20:51 22:53 WBC 6.8 RBC 5.01 Hgb 13.9 Hct 42.4 MCV 84.6 MCH 27.7 MCHC 32.8 RDW Std Deviation 39.7 RDW Coeff of Sathish 13.0 Plt Count 385 MPV 9.1 Immature Gran % (Auto) 0.300 Neut % (Auto) 49.7 Lymph % (Auto) 37.9 Vance % (Auto) 10.2 H Eos % (Auto) 1.2 Baso % (Auto) 0.7 Absolute Neuts (auto) 3.4 Absolute Lymphs (auto) 2.56 Nucleated RBC % 0 Sodium 136 Potassium 3.4 L Chloride 104 Carbon Dioxide 24.0 Anion Gap 8 BUN 16 Creatinine 1.09 H Estim Creat Clear Calc 74.24 Est GFR (MDRD) Af Amer 70 Est GFR (MDRD) Non-Af 58 L BUN/Creatinine Ratio 14.7 Glucose 167 H Calcium 9.5 Troponin I High Sens 4 6 Serum , Qual NEGATIVE Radiography Chest X-Ray - ED: 1 View, Read by ED Physician, Normal, Heart, Lungs and Mediastinum Diagnostic Testing: Clinical Impression(s) from Imaging Studies Chest X-Ray 09/01/23 20:20 IMPRESSION: Normal x-ray examination of the chest. Electronically Signed: Nathalie Sierra MD at 21:40 EST , EKG Initial EKG: Attestation: I personally reviewed and interpreted this EKG as follows: Interpretation: Sinus Rhythm (Sinus at 77 with no acute ischemia. Nonspecific, less than [address] depression in the lateral precordial leads.) Treatment and Re-Evaluation :: CBC was normal white count 6.8 with a hemoglobin of 13.9. Differential unremarkable. Chemistry studies significant only for slightly low potassium at 3.4. Glucose is elevated at 167. Initial troponin is 4 with repeat troponin of 6. Portable chest x-ray per my interpretation reveals no evidence of acute abnormality. Radiology interpretation reviewed and agrees. EKG reveals no obvious acute ischemia. Patient's test results discussed with her. I think she likely has more rad icular pain down her left arm with pain over the posterior shoulder. I do not see evidence of acute cardiac cause of pain at this time. Return instructions are given. 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 Discharge Plan Triage Chief Complaint: Chest Pain ED Provider: Paola Mc Dx/Rx/DC Orders Clinical Impression: Atypical chest pain Instructions: ED Chest Pain, Uncertain Cause Prescriptions: No Action ondansetron 4 mg tablet,disintegrating 4 mg translingual Q6H PRN Patient Comments: dissolve 1 tablet by mouth every 6 hours if needed for nausea and vomiting buspirone 5 mg tablet 5 mg PO TID PRN Patient Comments: take 1 tablet by mouth three times a day metformin 500 MG tablet 1,000 mg PO BID Patient Comments: take 1 tablet by mouth twice a day with meals omeprazole 20 MG capsule,delayed release(DR/EC) 20 mg PO DAILY Patient Comments: take 1 capsule by mouth once daily albuterol sulfate [Ventolin HFA] 1 INHALER inhaler 1 - 2 puff inhalation Q4H PRN PRN (Reason: Asthma) gabapentin 300 mg capsule 300 mg PO BID Patient Comments: take 1 capsule by mouth twice a day ergocalciferol (vitamin D2) [Vitamin D2] 1,250 mcg (50,000 unit) capsule 1,250 mcg PO MCDUFFIE Patient Comments: take 1 capsule by mouth every week bupropion HCl 300 mg tablet extended release 24 hr 300 mg PO DAILY carvedilol [Coreg] 6.25 mg tablet 6.25 mg PO BID Qty: 60 11RF Rx Instructions: must administer with a meal/food aspirin 81 mg tablet,delayed release (DR/EC) 81 mg PO BREAKFAST Qty: 90 3RF atorvastatin 80 mg tablet 80 mg PO QHS Qty: 90 3RF lisinopril 5 mg tablet 5 mg PO DAILY Qty: 90 3RF Jardiance 10 mg tablet 10 mg PO DAILY Qty: 30 11RF Primary Care Provider: Remi Nova Referrals: Jose English MD [Med Staff - Active Staff] - 1-2 Weeks Remi Nova MD [Primary Care Provider] - 1-2 Weeks Disposition Disposition: Home, Self Care
[2023-09-01 20:50] LABS: Absolute Lymphocyte Count 2.56 X10^3/uL (0.83-4.51); Absolute Neutrophil Count 3.4 X10^3/uL (2.0-7.7); Basophil# 0.05 X10^3/uL; Basophil% 0.7 % (0-1); Eosinophil# 0.08 X10^3/uL; Eosinophils% 1.2 % (0-5); Hematocrit 42.4 % (37-47); Hemoglobin 13.9 g/dL (12.0-15.0); Lymphocyte # 2.56 X10^3/ul (0.83-4.51); Lymphocyte % 37.9 % (19-41); Mean Corp Hgb Conc 32.8 g/dL (32-36); Mean Corpuscular Hgb 27.7 pg (27.0-32.0); Mean Corpuscular Volume 84.6 fL (81-99); Mean Platelet Vol. 9.1 fl (6.2-12.0); Monocyte# 0.69 X10^3/uL; Monocyte% 10.2 % (0-10); NRBC Flagged by Analyzer 0 % (0-5); Neutrophil # 3.35 X10^3/uL (2.7-7.7); Neutrophil % 49.7 % (47-70); Platelet Count 385 K/mm3 (150-450); RBC Distribution Width SD 39.7 fl (35.1-43.9); Red Blood Count 5.01 M/mm3 (4.2-5.4); White Blood Count 6.8 K/mm3 (4.4-11.0)
[2023-09-01] MEDS: Aspirin 81 MG TAB.CHEW 243 MG PO (20:51)
--- OUTSIDE RECORDS SUMMARY | 2023-09-01 20:51 | XMS RPT_ITS | CCD ---
Author Name Unknown Address [email or web address] [place] [address] Organization [facility] Care Team Providers Care Organ Pipe Finisher Name Role Phone Remi Franklin MD Primary Care Provider [phone] [place]onda [facility] [place] Unavailable MISAEL CHAN Referring Unavailable MISAEL CHAN Attending Unavailable Remi Franklin MD Primary Care Provider [phone] REMI FRANKLIN Primary Care Unavailable RADHA ROWAN Attending Unavailable REMI FRANKLIN Primary Care Unavailable REMI FRANKLIN Primary Care Unavailable FELA ARIAS Attending Unavailable REMI FRANKLIN Primary Care Unavailable REMI FRANKLIN Primary Care Unavailable REMI FRANKLIN Primary Care Unavailable REMI FRANKLIN Primary Care Unavailable REMI FRANKLIN Primary Care Unavailable REMI FRANKLIN Primary Care Unavailable RADHA ROWAN Attending Unavailable REMI FRANKLIN Primary Care Unavailable REMI FRANKLIN Primary Care Unavailable RADHA ROWAN Referring Unavailable REMI FRANKLIN Primary Care Unavailable REMI FRANKLIN Referring Unavailable REMI FRANKLIN Primary Care Unavailable RADHA ROWAN Referring Unavailable Allergies Allergy Classification Reported Allergen(s) Allergy Type Date of Onset Reaction(s) Facility (20 sources) Lactose; Translations: [LACTOSE] Drug Allergy 7 GI Upset [facility] Work Phone: (20 sources) Mometasone; Translations: [MOMETASONE FUROATE] Drug Allergy 7 Swelling [facility] Work Phone: (20 sources) pioglitazone; Translations: [PIOGLITAZONE HCL] Drug Allergy 7 Swelling [facility] Work Phone: (20 sources) predniSONE; Translations: [PREDNISONE] Drug Allergy 1 Other: See Comments [facility] Work Phone: (20 sources) Shellfish; Translations: [SHELLFISH DERIVED] Drug Allergy 3 Swelling, GI Upset [facility] (20 sources) Sulfonamides (Antibiotic); Translations: [SULFA (SULFONAMIDE ANTIBIOTICS)] Drug Allergy 1 Hives [facility] Work Phone: Medications Current Medications Medication Drug Class(es) Dates Sig (Normalized) Sig (Original) amoxicillin 875 mg / clavulanate 125 mg oral tablet (1 source) Penicillin-class Antibacterial Start: 07-25-2022 End: 08-01-2022 take 1 tablet by mouth twice daily amoxicillin-clav ulanic acid (AUGMENTIN) 875-125 mg per tablet Take 1 tablet by mouth twice daily for 7 days. 14 tablet 0 07/25/2022 08/01/2022 Active Completed/Discontinued Medications Medication Drug Class(es) Dates Sig (Normalized) Sig (Original) [id number] 200 actuat albuterol 0.09 mg/actuat metered dose inhaler (20 sources) beta2-Adrenergic Agonist Start: 01-17-2023 take 2 puff(s) by inhalation every four hours as needed for wheezing albuterol HFA (VENTOLIN HFA) 90 mcg/actuation inhaler Indications: Mild intermittent chronic asthma with acute exacerbation Inhale 2 Puffs as instructed every 4 hours as needed for wheezing/shortness of breath. 18 g 5 01/17/2023 Active Problems Active Problems Problem Classification Problem Date Documented Da te Episodic/Chronic Acute myocardial infarction (20 sources) Myocardial infarction; Translations: [Non-ST elevation (NSTEMI) myocardial infarction] Onset: 2 Chronic Anxiety disorders (20 sources) Generalized anxiety disorder; Translations: [Generalized anxiety disorder] Onset: 0 09-27-2019 Chronic Asthma (20 sources) Asthma; Translations: [Unspecified asthma, uncomplicated] Onset: 1 05-25-2011 Chronic Biliary tract disease (20 sources) Disorder of biliary tract; Translations: [Disease of biliary tract, unspecified] Onset: 2 Chronic Contraceptive and procreative management (1 source) History of contraceptive usage; Translations: [Personal history of contraception] Episodic Coronary atherosclerosis and other heart disease (20 sources) Coronary atherosclerosis; Translations: [Atherosclerotic heart disease of [place] coronary artery with other forms of angina pectoris] Onset: 2 Chronic Diabetes mellitus with complications (10 sources) Type 2 diabetes mellitus; Translations: [Type 2 diabetes mellitus with hyperglycemia] Onset: 1 Chronic Diabetes mellitus without complication (20 sources) Diabetes mellitus; Translations: [Type 2 diabetes mellitus without complications] 03-08-2011 Chronic Disorders of lipid metabolism (20 sources) Hyperlipidemia; Translations: [Hyperlipidemia, unspecified] Onset: 1 03-08-2011 Chronic Disorders of teeth and jaw (3 sources) Toothache; Translations: [Other specified disorders of teeth and supporting structures] Episodic Esophageal disorders (20 sources) Gastroesophageal reflux disease; Translations: [Gastro-esophageal reflux disease without esophagitis] 03-08-2011 Chronic Essential hypertension (1 source) Hypertensive disorder; Translations: [Essential (primary) hypertension] Chronic Immunizations and screening for infectious disease (1 source) Encounter for immunization; Translations: [Encounter for immunization] Onset: 3 Episodic Influenza (2 sources) Influenza-like illness; Translations: [Influenza due to unidentified influenza virus with other respiratory manifestations] Episodic Malaise and fatigue (2 sources) Fatigue; Translations: [Other fatigue] Onset: 3 Episodic Mood disorders (20 sources) Depressive disorder; Translations: [Depressive disorder] Onset: 0 09-27-2019 Chronic Noninfectious gastroenteritis (1 source) Chronic diarrhea; Translations: [Noninfective gastroenteritis and colitis, unspecified] Episodic Nutritional deficiencies (20 sources) Vitamin D deficiency; Translations: [Vitamin D deficiency, unspecified] Onset: 0 09-27-2019 Chronic Other gastrointestinal disorders (1 source) Diarrhea; Translations: [Diarrhea, unspecified] Episodic Other injuries and conditions due to external causes (1 source) Contusion; Translations: [Other injury of unspecified body region, initial encounter] 04-20-2023 Episodic Other liver diseases (20 sources) Steatosis of liver; Translations: [Fatty (change of) liver, not elsewhere classified] Onset: 2 Chronic Other liver diseases (1 source) Elevated liver enzymes level; Translations: [Abnormal levels of other serum enzymes] Episodic Other nervous system disorders (1 source) Paresthesia of lower extremity; Translations: [Anesthesia of skin] Episodic Other non-traumatic joint disorders (1 source) Multiple joint pain; Translations: [Pain in unspecified joint] Episodic Other nutritional; endocrine; and metabolic disorders (20 sources) Obese class I; Translations: [Obesity, unspecified] Onset: 0 09-27-2019 Chronic Other nutritional; endocrine; and metabolic disorders (1 source) Obesity, unspecified; Translations: [Obesity, Class I, BMI 30-34.9] Onset: 0 Chronic Other screening for suspected conditions (not mental disorders or infectious disease) (20 sources) Other specified abnormal findings of blood chemistry; Translations: [Other abnormal blood chemistry] Onset: 2 Episodic Other upper respiratory disease (1 source) Pain in throat; Translations: [Pain in throat] Episodic Residual codes; unclassified (1 source) Pain; Translations: [Pain, unspecified] Episodic Residual codes; unclassified (1 source) Family history of autism; Translations: [Family history of other mental and behavioral disorders] 11-17-2022 Episodic Residual codes; unclassified (1 source) Treatment not available; Translations: [Procedure and treatment not carried out for other reasons] 05-16-2023 Episodic Substance-related disorders (20 sources) Tobacco user; Translations: [Nicotine dependence, unspecified, uncomplicated] 03-08-2011 Chronic Past or Other Problems Problem Classification Problem Date Documented Da te Episodic/Chronic Nausea and vomiting (2 sources) Nausea; Translations: [Nausea] Onset: 01-19-2023 Episodic Other non-traumatic joint disorders (20 sources) Pain in lower limb; Translations: [Pain in unspecified knee] Onset: 03-14-2011 03-14-2011 Episodic Other upper respiratory infections (7 sources) Sore throat symptom; Translations: [Acute pharyngitis, unspecified] Onset: 01-19-2023 Episodic Spondylosis; intervertebral disc disorders; other back problems (20 sources) Chronic low back pain; Translations: [Chronic bilateral low back pain without sciatica] Onset: 09-27-2019 09-27-2019 Episodic Varicose veins of lower extremity (20 sources) Pain co-occurrent and due to varicose veins of left leg; Translations: [Varicose veins of left lower extremity with pain] Onset: 05-15-2020 05-15-2020 Episodic Results Test Name Value Interpretation Reference Range Facil ity Vital Signs Date Time Vital Sign Value Performing Clinician Nigel burt 04-20-2023 13:24-0400 Body temperature 97.81 [degF] Jessica Figueroaler-Lenny ORGANIZATIONAL DEVELOPMENT DIRECTOR.CHROME WORKER Work Phone: [facility] 04-20-2023 13:24-0400 Body weight 89.72 kg Jessica Darby-Lenny ORGANIZATIONAL DEVELOPMENT DIRECTOR.CHROME WORKER Work Phone: [facility] 04-20-2023 13:24-0400 Diastolic blood pressure 80 mm[Hg] Jessica Praisler-Lenny ORGANIZATIONAL DEVELOPMENT DIRECTOR.CHROME WORKER Work Phone: [facility] 04-20-2023 13:24-0400 Heart rate 76 /min Jessica Figueroaler-Lenny ORGANIZATIONAL DEVELOPMENT DIRECTOR.CHROME WORKER Work Phone: [facility] 04-20-2023 13:24-0400 Respiratory rate 18 /min Jessica Darby-Lenny ORGANIZATIONAL DEVELOPMENT DIRECTOR.CHROME WORKER Work Phone: [facility] 04-20-2023 13:24-0400 SaO2% (BldA) [Mass fraction] 98 % Jessica Cesarisler-Lenny ORGANIZATIONAL DEVELOPMENT DIRECTOR.CHROME WORKER Work Phone: [facility] 04-20-2023 13:24-0400 Systolic blood pressure 119 mm[Hg] Jessica Praisler-Wood ORGANIZATIONAL DEVELOPMENT DIRECTOR.CHROME WORKER Work Phone: [facility] 01-19-2023 07:57-0400 Diastolic blood pressure 85 mm[Hg] Fela Arias ORGANIZATIONAL DEVELOPMENT DIRECTOR.RUG FRAME MOUNTER Work Phone: [facility] 01-19-2023 07:57-0400 Heart rate 89 /min Fela Arias ORGANIZATIONAL DEVELOPMENT DIRECTOR.RUG FRAME MOUNTER Work Phone: [facility] 01-19-2023 07:57-0400 Systolic blood pressure 122 mm[Hg] Fela Arias ORGANIZATIONAL DEVELOPMENT DIRECTOR.RUG FRAME MOUNTER Work Phone: [facility] 01-19-2023 07:53-0400 Body temperature 97.3 [degF] Fela Arias ORGANIZATIONAL DEVELOPMENT DIRECTOR.RUG FRAME MOUNTER Work Phone: [facility] 01-19-2023 07:53-0400 Body weight 87.54 kg Fela Arias ORGANIZATIONAL DEVELOPMENT DIRECTOR.RUG FRAME MOUNTER Work Phone: [facility] 01-19-2023 07:53-0400 Respiratory rate 16 /min Fela Arias ORGANIZATIONAL DEVELOPMENT DIRECTOR.RUG FRAME MOUNTER Work Phone: [facility] 01-19-2023 07:53-0400 SaO2% (BldA) [Mass fraction] 96 % Fela Arias ORGANIZATIONAL DEVELOPMENT DIRECTOR.RUG FRAME MOUNTER Work Phone: [facility] 01-11-2023 11:32-0400 Body temperature 97.81 [degF] Nati Lexi ORGANIZATIONAL DEVELOPMENT DIRECTOR.CHROME WORKER Work Phone: [facility] 01-11-2023 11:32-0400 Body weight 87.64 kg Nati Lexi ORGANIZATIONAL DEVELOPMENT DIRECTOR.CHROME WORKER Work Phone: [facility] 01-11-2023 11:32-0400 Diastolic blood pressure 86 mm[Hg] Nati Lexi ORGANIZATIONAL DEVELOPMENT DIRECTOR.CHROME WORKER Work Phone: [facility] 01-11-2023 11:32-0400 Heart rate 79 /min Nati Lexi ORGANIZATIONAL DEVELOPMENT DIRECTOR.CHROME WORKER Work Phone: [facility] 01-11-2023 11:32-0400 Respiratory rate 18 /min Nati Lexi ORGANIZATIONAL DEVELOPMENT DIRECTOR.CHROME WORKER Work Phone: [facility] 01-11-2023 11:32-0400 SaO2% (BldA) [Mass fraction] 98 % Nati Lexi ORGANIZATIONAL DEVELOPMENT DIRECTOR.CHROME WORKER Work Phone: [facility] 01-11-2023 11:32-0400 Systolic blood pressure 114 mm[Hg] Nati Lexi ORGANIZATIONAL DEVELOPMENT DIRECTOR.CHROME WORKER Work Phone: [facility] 11-24-2022 17:24-0400 Body temperature 98.49 [degF] Lary Guzman ORGANIZATIONAL DEVELOPMENT DIRECTOR.CHROME WORKER Work Phone: [facility] 11-24-2022 17:24-0400 Body weight 88.09 kg Lary Guzman ORGANIZATIONAL DEVELOPMENT DIRECTOR.CHROME WORKER Work Phone: [facility] 11-24-2022 17:24-0400 Diastolic blood pressure 66 mm[Hg] Lary Guzman ORGANIZATIONAL DEVELOPMENT DIRECTOR.CHROME WORKER Work Phone: [facility] 11-24-2022 17:24-0400 Heart rate 73 /min Lary Guzman ORGANIZATIONAL DEVELOPMENT DIRECTOR.CHROME WORKER Work Phone: [facility] 11-24-2022 17:24-0400 Respiratory rate 18 /min Lary Guzman ORGANIZATIONAL DEVELOPMENT DIRECTOR.CHROME WORKER Work Phone: [facility] 11-24-2022 17:24-0400 SaO2% (BldA) [Mass fraction] 97 % Lary Guzman ORGANIZATIONAL DEVELOPMENT DIRECTOR.CHROME WORKER Work Phone: [facility] 11-24-2022 17:24-0400 Systolic blood pressure 128 mm[Hg] Lary Guzman ORGANIZATIONAL DEVELOPMENT DIRECTOR.CHROME WORKER Work Phone: [facility] 10-20-2022 18:23-0400 Body temperature 98.49 [degF] Vasyl Flood MD Work Phone: [facility] 10-20-2022 18:23-0400 Body weight 89.9 kg Vasyl Flood MD Work Phone: [facility] 10-20-2022 18:23-0400 Diastolic blood pressure 76 mm[Hg] Vasyl Flood MD Work Phone: [facility] 10-20-2022 18:23-0400 Heart rate 65 /min Vasyl Flood MD Work Phone: [facility] 10-20-2022 18:23-0400 Respiratory rate 16 /min Vasyl Flood MD Work Phone: [facility] 10-20-2022 18:23-0400 SaO2% (BldA) [Mass fraction] 98 % Vasyl Flood MD Work Phone: [facility] 10-20-2022 18:23-0400 Systolic blood pressure 132 mm[Hg] Vasyl Flood MD Work Phone: [facility] 10-06-2022 17:31-0400 Body temperature 97.59 [degF] Mike Vikas ORGANIZATIONAL DEVELOPMENT DIRECTOR.CHROME WORKER Work Phone: [facility] 10-06-2022 17:31-0400 Body weight 87.91 kg Mike Vikas ORGANIZATIONAL DEVELOPMENT DIRECTOR.CHROME WORKER Work Phone: [facility] 10-06-2022 17:31-0400 Diastolic blood pressure 78 mm[Hg] Mike Vikas ORGANIZATIONAL DEVELOPMENT DIRECTOR.CHROME WORKER Work Phone: [facility] 10-06-2022 17:31-0400 Heart rate 71 /min Mike Vikas ORGANIZATIONAL DEVELOPMENT DIRECTOR.CHROME WORKER Work Phone: [facility] 10-06-2022 17:31-0400 Respiratory rate 16 /min Mike Vikas ORGANIZATIONAL DEVELOPMENT DIRECTOR.CHROME WORKER Work Phone: [facility] 10-06-2022 17:31-0400 SaO2% (BldA) [Mass fraction] 98 % Mike Vikas ORGANIZATIONAL DEVELOPMENT DIRECTOR.CHROME WORKER Work Phone: [facility] 10-06-2022 17:31-0400 Systolic blood pressure 118 mm[Hg] Mike Vikas ORGANIZATIONAL DEVELOPMENT DIRECTOR.CHROME WORKER Work Phone: [facility] 09-14-2022 18:43-0500 Body temperature 98.4 [degF] Vasyl Flood MD Work Phone: [facility] 09-14-2022 18:43-0500 Body weight 88.91 kg Vasyl Flood MD Work Phone: [facility] 09-14-2022 18:43-0500 Diastolic blood pressure 70 mm[Hg] Vasyl Flood MD Work Phone: [facility] 09-14-2022 18:43-0500 Heart rate 64 /min Vasyl Flood MD Work Phone: [facility] 09-14-2022 18:43-0500 Respiratory rate 16 /min Vasyl Flood MD Work Phone: [facility] 09-14-2022 18:43-0500 SaO2% (BldA) [Mass fraction] 98 % Vasyl Flood MD Work Phone: [facility] 09-14-2022 18:43-0500 Systolic blood pressure 118 mm[Hg] Vasyl Flood MD Work Phone: [facility] 07-25-2022 17:17-0500 Body temperature 97.39 [degF] Nunu Athy PA-C Work Phone: [facility] 07-25-2022 17:17-0500 Body weight 90.54 kg Nunu Athy PA-C Work Phone: [facility] 07-25-2022 17:17-0500 Diastolic blood pressure 82 mm[Hg] Nunu Athy PA-C Work Phone: [facility] 07-25-2022 17:17-0500 Heart rate 74 /min Nunu Athy PA-C Work Phone: [facility] 07-25-2022 17:17-0500 Respiratory rate 18 /min Nunu Athy PA-C Work Phone: [facility] 07-25-2022 17:17-0500 SaO2% (BldA) [Mass fraction] 99 % Nunu Athy PA-C Work Phone: [facility] 07-25-2022 17:17-0500 Systolic blood pressure 124 mm[Hg] Nunu Athy PA-C Work Phone: [facility] 06-21-2022 18:41-0500 Body temperature 99.19 [degF] Yesica Mata APRN.CNP Work Phone: [facility] 06-21-2022 18:41-0500 Body weight 89.81 kg Yesica Mata TATIANA.CHROME WORKER Work Phone: [facility] 06-21-2022 18:41-0500 Diastolic blood pressure 82 mm[Hg] Yesica Adolfo ALMEIDAN.CHROME WORKER Work Phone: [facility] 06-21-2022 18:41-0500 Heart rate 76 /min Yesica Mata APRN.CHROME WORKER Work Phone: [facility] 06-21-2022 18:41-0500 Respiratory rate 16 /min Yesica Mata APRN.CHROME WORKER Work Phone: [facility] 06-21-2022 18:41-0500 SaO2% (BldA) [Mass fraction] 98 % Yesica Mata APRN.CHROME WORKER Work Phone: [facility] 06-21-2022 18:41-0500 Systolic blood pressure 122 mm[Hg] Yesica Mata APRN.CHROME WORKER Work Phone: [facility] 06-17-2022 16:01-0500 Body temperature 97 [degF] Yesica Adolfo SIMPSON.CHROME WORKER Work Phone: [facility] 06-17-2022 16:01-0500 Body weight 92.26 kg Yesica Mata TATIANA.CHROME WORKER Work Phone: [facility] 06-17-2022 16:01-0500 Diastolic blood pressure 70 mm[Hg] Yesica Mata APRN.CHROME WORKER Work Phone: [facility] 06-17-2022 16:01-0500 Heart rate 79 /min Yesica Mata APRN.CHROME WORKER Work Phone: [facility] 06-17-2022 16:01-0500 Respiratory rate 16 /min Yesica Mata APRN.CHROME WORKER Work Phone: [facility] 06-17-2022 16:01-0500 SaO2% (BldA) [Mass fraction] 97 % Yesica Mata APRN.CHROME WORKER Work Phone: [facility] 06-17-2022 16:01-0500 Systolic blood pressure 118 mm[Hg] Yesica Adolfo ORGANIZATIONAL DEVELOPMENT DIRECTOR.CHROME WORKER Work Phone: [facility] 05-18-2022 16:13-0400 Body weight 91.17 kg Radha Older ORGANIZATIONAL DEVELOPMENT DIRECTOR.CHROME WORKER Work Phone: [facility] 05-18-2022 16:13-0400 Diastolic blood pressure 72 mm[Hg] Radha Older ORGANIZATIONAL DEVELOPMENT DIRECTOR.CHROME WORKER Work Phone: [facility] 05-18-2022 16:13-0400 Heart rate 80 /min Radha Older ORGANIZATIONAL DEVELOPMENT DIRECTOR.CHROME WORKER Work Phone: [facility] 05-18-2022 16:13-0400 Respiratory rate 14 /min Radha Older ORGANIZATIONAL DEVELOPMENT DIRECTOR.CHROME WORKER Work Phone: [facility] 05-18-2022 16:13-0400 Systolic blood pressure 108 mm[Hg] Radha Older ORGANIZATIONAL DEVELOPMENT DIRECTOR.CHROME WORKER Work Phone: [facility] 04-08-2022 13:11-0400 Body weight 87.54 kg Jade Zurawick ORGANIZATIONAL DEVELOPMENT DIRECTOR.CHROME WORKER Work Phone: [facility] 04-08-2022 13:11-0400 Diastolic blood pressure 70 mm[Hg] Jade Zurawick ORGANIZATIONAL DEVELOPMENT DIRECTOR.CHROME WORKER Work Phone: [facility] 04-08-2022 13:11-0400 Heart rate 68 /min Jade Zurawick ORGANIZATIONAL DEVELOPMENT DIRECTOR.CHROME WORKER Work Phone: [facility] 04-08-2022 13:11-0400 Respiratory rate 16 /min Jade Zurawick ORGANIZATIONAL DEVELOPMENT DIRECTOR.CHROME WORKER Work Phone: [facility] 04-08-2022 13:11-0400 Systolic blood pressure 110 mm[Hg] Jade Zurawick ORGANIZATIONAL DEVELOPMENT DIRECTOR.CHROME WORKER Work Phone: [facility] 02-14-2022 15:02-0400 Body weight 91.63 kg Radha Older ORGANIZATIONAL DEVELOPMENT DIRECTOR.CHROME WORKER Work Phone: [facility] 02-14-2022 15:02-0400 Diastolic blood pressure 90 mm[Hg] Radha Older ORGANIZATIONAL DEVELOPMENT DIRECTOR.CHROME WORKER Work Phone: [facility] 02-14-2022 15:02-0400 Heart rate 88 /min Radha Older ORGANIZATIONAL DEVELOPMENT DIRECTOR.CHROME WORKER Work Phone: [facility] 02-14-2022 15:02-0400 Respiratory rate 18 /min Radha Older ORGANIZATIONAL DEVELOPMENT DIRECTOR.CHROME WORKER Work Phone: [facility] 02-14-2022 15:02-0400 Systolic blood pressure 136 mm[Hg] Radha Older ORGANIZATIONAL DEVELOPMENT DIRECTOR.CHROME WORKER Work Phone: [facility] 10-21-2021 12:52-0400 Body temperature 97.7 [degF] Vasyl Flood MD Work Phone: [facility] 10-21-2021 12:52-0400 Body weight 93.08 kg Vasyl Flood MD Work Phone: [facility] 10-21-2021 12:52-0400 Diastolic blood pressure 84 mm[Hg] Vasyl Flood MD Work Phone: [facility] 10-21-2021 12:52-0400 Heart rate 97 /min Vasyl Flood MD Work Phone: [facility] 10-21-2021 12:52-0400 Respiratory rate 20 /min Vasyl Flood MD Work Phone: [facility] 10-21-2021 12:52-0400 SaO2% (BldA) [Mass fraction] 98 % Vasyl Flood MD Work Phone: [facility] 10-21-2021 12:52-0400 Systolic blood pressure 120 mm[Hg] Vasyl Flood MD Work Phone: [facility] Encounters Encounter Date Encounter Type Care Provider Facility Start: 08-14-2023 End: 08-14-2023 ambulatory REMI FRANKLIN Facility:[facility] Start: 07-22-2023 End: 07-23-2023 ambulatory REMI FRANKLIN Facility:[facility] Start: 07-19-2023 End: 07-20-2023 ambulatory REMI FRANKLIN Facility:[facility] Start: 06-28-2023 ambulatory Remi masters MD Work Phone: [facility] [place] Start: 06-26-2023 Colton hu ORGANIZATIONAL DEVELOPMENT DIRECTOR.CHROME WORKER Work Phone: [facility] Procedures Date Procedure Procedure Detail Performing Clinician Start: 11-24-2022 STREP A MOLECULAR (POC) Lary Guzman ORGANIZATIONAL DEVELOPMENT DIRECTOR.CHROME WORKER Work Phone: Start: 10-20-2022 STREP A MOLECULAR (POC) Nunu Ledesma PA-C Work Phone: Start: 10-06-2022 STREP A MOLECULAR (POC) Mike Bean ORGANIZATIONAL DEVELOPMENT DIRECTOR.CHROME WORKER Work Phone: Start: 05-23-2022 End: 05-23-2022 Mammography Bulk Order Provider Plan of Treatment Date Care Activity Detail Author Start: 09-28-2023 ANNUAL PCP TEAM LATEX RIBBON MACHINE OPERATOR WARREN DISEASE VISIT ANNUAL PCP TEAM CHRONIC DISEASE VISIT [facility] Start: 05-23-2023 Mammography [facility] Start: 05-20-2023 COVID-19 VACCINE (#1) COVID-19 VACCI NE (#1) [facility] Immunizations Immunization Date Immunization Notes Care Provider Kika prince 08-25-2017 influenza virus vaccine, unspecified formulation Jessica Davies ORGANIZATIONAL DEVELOPMENT DIRECTOR.CHROME WORKER Work Phone: [facility] 06-13-2016 influenza, injectabl e, quadrivalent, contains preservative Vasyl Flood MD Work Phone: [facility] Work Phone: 05-25-2011 influenza virus vaccine, unspecified formulation Vasyl Flood MD Work Phone: [facility] Work Phone: 05-25-2005 TD(adult) unspecifie d formulation Vasyl Flood MD Work Phone: [facility] Work Phone: 05-25-2005 tetanus and diphther ia toxoids, adsorbed, preservative free, for adult use (2 Lf of tetanus toxoid and 2 Lf of diphtheria toxoid) Vasyl Flood MD Work Phone: [facility] Work Phone: Payers Date Payer Category Payer Medicaid [id number] 2019 Medicaid [place] [employer] [employer] [id number] 2019-Present [phone] [address] [place] [id number] Medicaid [id number] 2019 Medicaid [id number] Social History Date Type Detail Facility Start: 1995 End: 05-18-2022 Tobacco smoking status NHIS Smokes tobacco daily [facility] Work Phone: Start: 1995 History of tobacco use Cigarette Smoker [facility] Work Phone: Start: 04-11-2017 End: 01-02-2023 Cigarettes smoked current (pack per day) - Reported 1 [facility] Start: 04-11-2017 End: 05-18-2022 Tobacco use and exposure Smokeless tobacco non-user [facility] Work Phone: Start: 10-21-2021 End: 04-20-2023 Alcohol intake Current drinker of alcohol (finding) [facility] Start: 07-26-2020 End: 06-29-2022 History SDOH Alcohol Frequency 2 [facility] Start: 07-26-2020 End: 06-29-2022 History SDOH Alcohol Std Drinks 1 [facility] Start: 04-11-2017 History SDOH Alcohol Comment Rarely - 2 drinks/year [facility] Start: 07-26-2020 End: 06-29-2022 History SDOH Social Connections Phone 5 [facility] Start: 07-26-2020 End: 11-09-2021 History SDOH Physical Activity MPS 4 [facility] Start: 07-26-2020 End: 06-29-2022 History SDOH Food Worry 98 [facility] Start: 07-26-2020 Education 14 [facility] Start: 09-27-2019 End: 05-18-2022 Tobacco Comment currently 1/2 PPD [facility] Start: 1980 Sex Assigned At Female [facility] Start: 10-11-2021 End: 06-21-2022 Exposure to SARS-CoV-2 (event) Not sure [facility] Start: 11-09-2021 History SDOH Physical Activity DPW 0 [facility] Start: 11-09-2021 History SDOH Housing Unable to Pay 3 [facility] Start: 11-27-2021 End: 12-07-2021 Exposure to SARS-CoV-2 (event) Yes [facility] Work Phone: Start: 06-17-2022 Tobacco smoking status NHIS Ex-smoker [facility] Start: 1995 History of tobacco use Current smoker [facility] Start: 06-17-2022 Tobacco use and exposure User of smokeless tobacco [facility] Tobacco smoking stat us [facility] Tobacco smoking consumption unknown [facility] Start: 1980 Sex Assigned At Not on file [facility] Start: 06-28-2022 End: 01-02-2023 Gender identity Not on file [facility] How often do you get together with friends or relatives? Patient refused [facility] Do you belong to any clubs or organizations such as anabaptist groups, unions, fraternal or athletic groups, or school groups? No [facility] Are you now , , , , never or living with a partner? [facility] How often to you hav e a drink containing alcohol? Monthly or less [facility] How many standard dr inks containing alcohol do you have on a typical day? 1 or 2 [facility] How often do you hav e 6 or more drinks on 1 occasion? Never [facility] Do you feel stress - tense, restless, nervous, or anxious, or unable to sleep at night because your mind is troubled all the time - these days [OSQ]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 Psychiatric: Mood and Affect: Mood normal. Behavior: Behavior normal. Thought Content: Thought content normal. Judgment: Judgment normal. Assessment and Plan ASSESSMENT/PLAN: 1. Bruise - ICD9: 924.9, ICD10: T14.8XXA - Rest, ice, elevate - OTC analgesia as needed - CHRIS wrap - Follow up with PCP at scheduled appointment tomorrow - report to ER if numbness, tingling, limit in range of motion, or bruise gets bigger in size E Lolis [employer] VISUAL JOURNALIST Student TEACHING PROVIDER (Physician/PA/ORGANIZATIONAL DEVELOPMENT DIRECTOR) NOTE OF PERSONAL INVOLVEMENT IN CARE: I have personally seen and examined the patient and performed the medical decision-making components. I have reviewed the Advanced Practice Registered Nurse (ORGANIZATIONAL DEVELOPMENT DIRECTOR) Student's documentation and verified the findings in the note as written. Any additions or changes are noted in bold/italics. Signature: Jessica Davies Date: 04/20/2023 Time: 2:27 PM documented in this encounter [facility] 01-19-2023 Note HNO ID: [id number] Author: Fela Arias APRN.RUG FRAME MOUNTER Service: ? Author Type: Nurse Specialist Type: Progress Notes Filed: 01/19/2023 8:37 AM Note Text: SUBJECTIVE: DILATED RETINAL EXAM due on 03/08/2012 PAP TESTING due on 04/11/2022 HPV TESTING due on 04/11/2022 HBA1C due on 05/17/2022 LDL CHOLESTEROL due on 10/29/2022 URINE ALBUMIN:CREATININE RATIO due on 02/14/2023 DIABETIC FOOT EXAM due on 02/14/2023 PCP: Remi Franklin MD NANCY Maria is a 42 year old female. PMH significiant for ACTIVE PROBLEM LIST Diabetes Mellitus (Hcc) Gerd (Gastroesophageal Reflux Disease) Tobacco Use Disorder Hyperlipidemia Pain in Joint, Lower Leg Asthma, Chronic Nikita (Generalized Anxiety Disorder) Obesity, Class I, Bmi 30-34.9 Vitamin D Deficiency Chronic Bilateral Low Back Pain Without Sciatica Depressive Disorder Varicose Veins of Leg With Pain, Left Coronary Artery Disease Involving [place] Coronary Artery of [place] Heart Without Angina Pectoris Nstemi (Non-St Elevated Myocardial Infarction) (Hcc) Biliary Disease Elevated Lfts Fatty Liver Seen in urgent care 01/11/2023 for dental pain. Treated with amoxicillin. MyChart note appointment indicates headache asthma nausea pain and dizziness as reason for appointment. On arrival indicates that her son was diagnosed with URI, viral cause. Not sure which virus. Notes that he had a fever that she could not control at home so was taken to the hospital for this. He did not have strep. She is currently taking amoxicillin for dental problem. She reports symptoms for 3 days. She is noted fever of 101 Fahrenheit 2 days ago. Continues with intermittent fever. She notes a sore throat. Some body aches nausea and headache is noted. She reports trying to maintain adequate fluid intake. May not be eating and drinking as much as usual. Some dizziness is present. Notes intermittent wheezing. Cough which is intermittent and nonproductive. Not short of breath. Using albuterol inhaler 3-4 times per day, does help. Cardiology: [facility] for coronary artery disease, history of Patient's last HgA1C was Hemoglobin A1C (%) Date Value 02/14/2022 10.2 05/15/2020 6.9 09/27/2019 7.3 Hemoglobin A1C (POCT) (%) Date Value 08/20/2020 6.8 ) Review of Systems Constitutional: Positive for fever. HENT: Positive for sore throat. Respiratory: Positive for cough and wheezing. Gastrointestinal: Positive for nausea. Neurological: Positive for headaches. Objective BP 122/85 (BP Site: Left Arm, BP Position: Standing, BP Cuff Size: Regular Adult) Pulse 89 Temp 36.3 ?C (97.3 ?F) Resp 16 Wt 87.5 kg (193 lb) LMP (LMP Unknown) SpO2 96% BMI 31.63 kg/m? Physical Exam Vitals and nursing note reviewed. Constitutional: Appearance: Normal appearance. HENT: Head: Normocephalic and atraumatic. Right Ear: Tympanic membrane and ear canal normal. Left Ear: Tympanic membrane and ear canal normal. Nose: Mucosal edema present. Mouth/Throat: Lips: Hemphill. Mouth: Mucous membranes are moist. Pharynx: Oropharynx is clear. No pharyngeal swelling, oropharyngeal exudate, posterior oropharyngeal erythema or uvula swelling. Tonsils: No tonsillar exudate or tonsillar abscesses. Eyes: Conjunctiva/sclera: Conjunctivae normal. Cardiovascular: Rate and Rhythm: Normal rate and regular rhythm. Pulmonary: Effort: Pulmonary effort is normal. Breath sounds: Normal breath sounds. Skin: General: Skin is warm and dry. Neurological: Mental Status: She is alert. ALLERGIES Allergen Reactions Actos [Pioglitazone* Swelling Legs and Arms Swelling. Lactose GI Upset Diarrhea or Constipation with upset stomach Nasonex [Mometasone* Swelling Tongue swelling Prednisone Other: See Comments throat closing Shellfish Derived Swelling, GI Upset Sulfa (Sulfonamide * Hives albuterol HFA (VENTOLIN HFA) 90 mcg/actuation inhaler Inhale 2 Puffs as instructed every 4 hours as needed for wheezing/shortness of breath. miconazole (MONISTAT 7) 2 % vaginal cream Use 1 Applicator vaginally daily at bedtime. omeprazole (PRILOSEC) 20 mg capsule Take 1 capsule by mouth once daily. buPROPion XL (WELLBUTRIN XL) 300 mg 24 hr tablet Take 1 tablet by mouth once daily. metFORMIN (GLUCOPHAGE) 500 mg tablet Take 2 tablets by mouth twice daily with meals. carvedilol (COREG) 6.25 mg tablet Take 6.25 mg by mouth twice daily. blood sugar diagnostic (BLOOD GLUCOSE TEST) test strip Test blood sugar(s) 1 times daily. Dx: Type 2 DM - Controlled E11.9 Insulin: No Lancets lancets Test blood sugar(s) 1 times daily. Dx: Type 2 DM - Controlled E11.9 Insulin: No empagliflozin (JARDIANCE) 10 mg tablet Take 10 mg by mouth daily with breakfast. lisinopril (ZESTRIL, PRINIVIL) 5 mg tablet Take 5 mg by mouth once daily. ticagrelor (BRILINTA) 90 mg tablet Take 90 mg by mouth twice daily. ondansetron orally disintegrating (ZOFRAN ODT) 4 mg dis (more content not included)... [facility] 01-19-2023 Instructions Fela Arias APRN.RUG FRAME MOUNTER - 01/19/2023 8:24 AM EDT [facility] PATIENT INFO PHARYNGITIS OVERVIEW A sore throat (pharyngitis) is a common problem, and usually is caused by a viral or bacterial infection. Sore throat usually resolves on its own without complications in adults, although it is important to know when to seek medical attention. Viruses can cause a sore throat and other upper respiratory infections, such as the common cold. Sore throat caused by a virus is not treated with antibiotics, but instead may be treated with rest, pain medication, and other therapies aimed at relieving symptoms. Strep throat is a particular kind of pharyngitis that is caused by a bacterium known as group A streptococcus (GAS). Strep throat is treated with a course of antibiotics. SORE THROAT SYMPTOMS Viral pharyngitis - Most people with a sore throat have a virus. The most common viruses are those that cause upper respiratory infections, such as the common cold. Symptoms of a viral infection can include: A runny or congested nose Irritation or redness of the eyes Cough, hoarseness, or soreness in the roof of the mouth Some viruses cause a fever and can make you feel quite ill. Strep throat - Approximately 10 percent of adults with a sore throat have strep throat. Signs and symptoms of strep throat include the following: Pain in the throat Fever (temperature greater than 100.4 F or 38 C) Enlarged lymph glands in the neck No cough, runny nose, or irritation/redness of the eyes When to seek urgent help - See your doctor or nurse immediately if you have a sore throat along with any of the following: Difficulty breathing Skin rash Drooling because you cannot swallow Swelling of the neck or tongue Stiff neck or difficulty opening the mouth SORE THROAT DIAGNOSIS Most people with a sore throat get better without treatment. There is no specific treatment for a sore throat caused by usual cold viruses. Is it strep or not? - A combination of symptoms (fever, enlarged glands in the neck, white patches on your tonsils, and no cough) can help in determining if you have strep. If you have two or more symptoms, a rapid test or throat culture may be done. People with fewer than two symptoms usually do not need testing or treatment for strep throat. Rapid test - The rapid test determines if there are streptococcus bacteria on a throat swab. The test can be done in a clinician's office and the results are available within a few minutes. The test is accurate in most cases, although a small percentage of tests are falsely negative (the bacteria are present but the test is negative). Strep Confirmatory Test - involves swabbing the throat, sending the swab to a laboratory, and waiting 24 to 48 hours for the results. These Strep PCR tests are slightly more accurate than the rapid test. TREATMENT OF SORE THROAT Sore throat treatment - Antibiotics do not help throat pain caused by a virus and are not recommended. Sore throat caused by viral infections usually lasts four to five days. During this time, treatments to reduce pain may be helpful. Several therapies can help to relieve throat pain. Pain medication - You can treat your throat pain with a mild pain reliever such as acetaminophen (Tylenol ) or a non -steroidal anti-inflammatory agent such as ibuprofen or naproxen (Motrin or Aleve ). Oral rinses - Salt water gargles are an effective treatment for throat pain. It is not clear that salt water works to relieve pain, but it is unlikely to be harmful. Most recipes suggest 1/4 to 1/2 teaspoon of salt per one cup (8 ounces) of warm water. Sprays - Sprays containing topical anesthetics ( benzocaine, phenol) are available to treat sore throat. However, such sprays are no more effective than sucking on hard candy. Lozenges - A variety of lozenges (cough drops) are available to treat throat pain or relieve dryness. However, it is not clear that lozenges work any better than other forms of hard candy, which are generally less expensive. Other treatments - Other treatments that may help with throat pain include increase fluid intake and rest, sipping warm beverages (eg, honey or lemon tea, chicken soup), cold beverages, or eating cold or frozen desserts (eg, ice cream, popsicles).Replace your toothbrush, it may be harboring germs. Until the illness is resolved, do not share anything by mouth. Strep throat - Penicillin, or an antibiotic related to penicillin, is the treatment of choice for strep throat. A one time injection of penicillin is also available. People who are allergic to penicillin are given an alternate antibiotic. It is important to finish the entire course of treatment to completely eliminate the infection. If symptoms do not begin to improve or worsen by three days of antibiotic treatment, you should see your primary care provider. Return to work/school - If you have been diagnosed with strep throat, stay home from work or school until you have completed 24 hours of antibiotics. Within 24 hours of beginning antibiotic treatment, you will feel better and will be less contagious. If you have a sore throat (not diagnosed as strep), you may participate in your usual activities as soon as you feel well. What to do if symptoms don't improve:- If symptoms do not begin to improve within 5 to 7 days you should see your primary care provider. documented in this encounter [facility] 01-19-2023 History of Presen t illness Narrative SUBJECTIVE: DILATED RETINAL EXAM due on 03/08/2012 PAP TESTING due on 04/11/2022 HPV TESTING due on 04/11/2022 HBA1C due on 05/17/2022 LDL CHOLESTEROL due on 10/29/2022 URINE ALBUMIN:CREATININE RATIO due on 02/14/2023 DIABETIC FOOT EXAM due on 02/14/2023 PCP: Remi Franklin MD NANCY Maria is a 42 year old female. PMH significiant for ACTIVE PROBLEM LIST Diabetes Mellitus (Hcc) Gerd (Gastroesophageal Reflux Disease) Tobacco Use Disorder Hyperlipidemia Pain in Joint, Lower Leg Asthma, Chronic Nikita (Generalized Anxiety Disorder) Obesity, Class I, Bmi 30-34.9 Vitamin D Deficiency Chronic Bilateral Low Back Pain Without Sciatica Depressive Disorder Varicose Veins of Leg With Pain, Left Coronary Artery Disease Involving [place] Coronary Artery of [place] Heart Without Angina Pectoris Nstemi (Non-St Elevated Myocardial Infarction) (Hcc) Biliary Disease Elevated Lfts Fatty Liver Seen in urgent care 01/11/2023 for dental pain. Treated with amoxicillin. MyChart note appointment indicates headache asthma nausea pain and dizziness as reason for appointment. On arrival indicates that her son was diagnosed with URI, viral cause. Not sure which virus. Notes that he had a fever that she could not control at home so was taken to the hospital for this. He did not have strep. She is currently taking amoxicillin for dental problem. She reports symptoms for 3 days. She is noted fever of 101 Fahrenheit 2 days ago. Continues with intermittent fever. She notes a sore throat. Some body aches nausea and headache is noted. She reports trying to maintain adequate fluid intake. May not be eating and drinking as much as usual. Some dizziness is present. Notes intermittent wheezing. Cough which is intermittent and nonproductive. Not short of breath. Using albuterol inhaler 3-4 times per day, does help. Cardiology: [facility] for coronary artery disease, history of Patient's last HgA1C was Hemoglobin A1C (%) Date Value 02/14/2022 10.2 05/15/2020 6.9 09/27/2019 7.3 Hemoglobin A1C (POCT) (%) Date Value 08/20/2020 6.8 ) Review of Systems Constitutional: Positive for fever. HENT: Positive for sore throat. Respiratory: Positive for cough and wheezing. Gastrointestinal: Positive for nausea. Neurological: Positive for headaches. Objective BP 122/85 (BP Site: Left Arm, BP Position: Standing, BP Cuff Size: Regular Adult) Pulse 89 Temp 36.3 C (97.3 F) Resp 16 Wt 87.5 kg (193 lb) LMP (LMP Unknown) SpO2 96% BMI 31.63 kg/m Physical Exam Vitals and nursing note reviewed. Constitutional: Appearance: Normal appearance. HENT: Head: Normocephalic and atraumatic. Right Ear: Tympanic membrane and ear canal normal. Left Ear: Tympanic membrane and ear canal normal. Nose: Mucosal edema present. Mouth/Throat: Lips: Hemphill. Mouth: Mucous membranes are moist. Pharynx: Oropharynx is clear. No pharyngeal swelling, oropharyngeal exudate, posterior oropharyngeal erythema or uvula swelling. Tonsils: No tonsillar exudate or tonsillar abscesses. Eyes: Conjunctiva/sclera: Conjunctivae normal. Cardiovascular: Rate and Rhythm: Normal rate and regular rhythm. Pulmonary: Effort: Pulmonary effort is normal. Breath sounds: Normal breath sounds. Skin: General: Skin is warm and dry. Neurological: Mental Status: She is alert. ALLERGIES Allergen Reactions Actos [Pioglitazone* Swelling Legs and Arms Swelling. Lactose GI Upset Diarrhea or Constipation with upset stomach Nasonex [Mometasone* Swelling Tongue swelling Prednisone Other: See Comments throat closing Shellfish Derived Swelling, GI Upset Sulfa (Sulfonamide * Hives albuterol HFA (VENTOLIN HFA) 90 mcg/actuation inhaler Inhale 2 Puffs as instructed every 4 hours as needed for wheezing/shortness of breath. miconazole (MONISTAT 7) 2 % vaginal cream Use 1 Applicator vaginally daily at bedtime. omeprazole (PRILOSEC) 20 mg capsule Take 1 capsule by mouth once daily. buPROPion XL (WELLBUTRIN XL) 300 mg 24 hr tablet Take 1 tablet by mouth once daily. metFORMIN (GLUCOPHAGE) 500 mg tablet Take 2 tablets by mouth twice daily with meals. carvedilol (COREG) 6.25 mg tablet Take 6.25 mg by mouth twice daily. blood sugar diagnostic (BLOOD GLUCOSE TEST) test strip Test blood sugar(s) 1 times daily. Dx: Type 2 DM - Controlled E11.9 Insulin: No Lancets lancets Test blood sugar(s) 1 times daily. Dx: Type 2 DM - Controlled E11.9 Insulin: No empagliflozin (JARDIANCE) 10 mg tablet Take 10 mg by mouth daily with breakfast. lisinopril (ZESTRIL, PRINIVIL) 5 mg tablet Take 5 mg by mouth once daily. ticagrelor (BRILINTA) 90 mg tablet Take 90 mg by mouth twice daily. ondansetron orally disintegrating (ZOFRAN ODT) 4 mg disintegrating tablet Take 1 tablet by mouth every 6 hours as needed for nausea/vomiting. benzonatate (TESSALON PERLES) 100 mg capsule Take 1-2 capsules by mouth three times daily as needed for cough. gabapentin (NEURONTIN) 300 mg capsule Take 1 capsule by mouth twice daily for 90 days. PAST MEDICAL HISTORY Diagnosis Date Abnormal Pap smear of cervix ten years ago Asthma, chronic Chronic bilateral low back pain without sciatica 09/27/2019 COVID-19 04/11/2021 Depressive disorder 09/27/2019 Diabetes mellitus (HCC) Febrile seizures (HCC) as child NIKITA (generalized anxiety disorder) 09/27/2019 GERD (gastroesophageal reflux disease) Gestational diabetes 2006 on insulin during Hyperlipidemia Miscarriage 3 Miscarriages Obesity 08/25/2011 Tobacco use disorder Urogenital trichomoniasis 2 years ago 2015 - was treated Social History Tobacco Use Smoking status: Former Packs/day: 1.00 Years: 23.00 Pack years: 23.00 Types: Cigarettes Start date: 1995 Smokeless tobacco: Current Tobacco comments: currently 1/2 PPD Vaping Use Vaping Use: Never used Substance Use Topics Alcohol use: Yes Comment: Rarely - 2 drinks/year Drug use: No Component Latest Ref Rng & Units 02/14/2022 WBC 3.70 - 11.00 k/uL 6.14 RBC 3.90 - 5.20 m/uL 4.81 Hemoglobin 11.5 - 15.5 g/dL 14.3 Hematocrit 36.0 - 46.0 % 42.1 MCV 80.0 - 100.0 fL 87.5 MCH 26.0 - 34.0 pg 29.7 MCHC 30.5 - 36.0 g/dL 34.0 RDW-CV 11.5 - 15.0 % 12.7 Platelet Count 150 - 400 k/uL 363 MPV 9.0 - 12.7 fL 10.2 Neut% % 61.0 Abs Neut (ANC) 1.45 - 7.50 k/uL 3.75 Lymph% % 28.3 Abs Lymph 1.00 - 4.00 k/uL 1.74 Storey% % 8.5 Abs Storey <0.87 k/uL 0.52 Eosin% % 1.3 Abs Eosin <0.46 k/uL 0.08 Baso% % 0.7 Abs Baso <0.11 k/uL 0.04 Immature Gran % % 0.2 IMMATURE GRANS (ABS) <0.10 k/uL <0.03 NRBC /100 WBC 0.0 Absolute nRBC <0.01 k/uL <0.01 DTYPE Auto Protein, Total 6.3 - 8.0 g/dL 7.0 Albumin 3.9 - 4.9 g/dL 4.2 Calcium 8.5 - 10.2 mg/dL 9.2 Bilirubin, Total 0.2 - 1.3 mg/dL 0.2 Alkaline Phosphatase 34 - 123 U/L 108 AST 13 - 35 U/L 34 ALT 7 - 38 U/L 55 (H) Glucose 74 - 99 mg/dL 352 (H) BUN 7 - 21 mg/dL 14 Creatinine 0.58 - 0.96 mg/dL 0.60 Sodium 136 - 144 mmol/L 134 (L) Potassium 3.7 - 5.1 mmol/L 4.5 Chloride 97 - 105 mmol/L 99 CO2 22 - 30 mmol/L 21 (L) Anion Gap 9 - 18 mmol/L 14 eGFR >=60 mL/min/1.73m 115 Creatinine, Ur Random (UCRR) 20.0 - 300.0 mg/dL 118.4 Albumin, Urine Random mg/L <12.0 Albumin/Creat Ratio <30 mg/g <10 Hemoglobin A1C 4.3 - 5.6 % 10.2 (H) Estimated Average Glucose mg/dL 246 TSH 0.270 - 4.200 mIU/L 1.440 Vitamin D 25 Hydroxy 31.0 - 80.0 ng/mL 18.4 (L) WSR 0 - 20 mm/hr 8 CRP <0.9 mg/dL 0.8 CECILIO Negative Negative Rheumatoid Factor <16 IU/mL <10 ASSESSMENT/PLAN: 1. Type 2 diabetes mellitus with hyperglycemia, without long-term current use of insulin (HCC) - ICD9: 250.00, 790.29, ICD10: E11.65 Previously uncontrolled, due for labwork and visit - ALBUMIN/CREAT RATIO RND UR - LIPID PANEL BASIC - HGB A1C - COMP METABOLIC PANEL - CBC + DIFF 2. Viral upper respiratory tract infection - ICD9: 465.9, ICD10: J06.9 (primary diagnosis) - Discussed viral etiology and rationale for treatment. - Rapid strep negative in office today - deferred - Symptomatic treatment with prn analgesia - Supportive care with fluids and rest - Follow up in if symptoms persist or sooner if worsening of symptoms - BENZONATATE 100 MG CAPSULE 3. Nausea - ICD9: 787.02, ICD10: R11.0 - ONDANSETRON 4 MG DISINTEGRATING TABLET See patient instructions. Keep PCP appt, labs prior Fela Arias APRN.CNS Medical Decision Making: Problems: Low: Stable chronic illness Data: Unique test(s) ordered: 3+ Risk: Moderate: Drug management Medical Decision Making Level: 4 - Moderate documented in this encounter [facility] 01-16-2023 Miscellaneous Notes KERRIE: 05/18/2022 Last refill: 09/27/2022 QTY: 18 g Refills: 5 Patient's request for medication is as follows: Requested Prescriptions Pending Prescriptions Disp Refills albuterol HFA (VENTOLIN HFA) 90 mcg/actuation inhaler 18 g 5 Sig: Inhale 2 Puffs as instructed every 4 hours as needed for wheezing/shortness of breath. Please approve the above prescription(s) to electronically send to pharmacy. René Mata Ma documented in this encounter [facility] 01-11-2023 Note HNO ID: [id number] Author: Nati Elliott APRN.CHROME WORKER Service: ? Author Type: Nurse Practitioner Type: Progress Notes Filed: 01/11/2023 11:52 AM Note Text: Subjective The history is provided by the patient and a friend. HPI Pham Maria is a 42 year old female who presents today for CC of dental pain. She has a tooth that needs pulled and had to cancel her dental appointment. Denies any fever or jaw swelling. Has used tyelnol with short term relief. BP 114/86 Pulse 79 Temp 36.6 ?C (97.8 ?F) Resp 18 Wt 87.6 kg (193 lb 3.2 oz) LMP (LMP Unknown) SpO2 98% BMI 31.66 kg/m? Social History Tobacco Use Smoking status: Former Packs/day: 1.00 Years: 23.00 Pack years: 23.00 Types: Cigarettes Start date: 1995 Smokeless tobacco: Current Tobacco comments: currently 1/2 PPD Vaping Use Vaping Use: Never used Substance Use Topics Alcohol use: Yes Comment: Rarely - 2 drinks/year Drug use: No PAST MEDICAL HISTORY Diagnosis Date Abnormal Pap smear of cervix ten years ago Asthma, chronic Chronic bilateral low back pain without sciatica 09/27/2019 COVID-19 04/11/2021 Depressive disorder 09/27/2019 Diabetes mellitus (HCC) Febrile seizures (HCC) as child NIKITA (generalized anxiety disorder) 09/27/2019 GERD (gastroesophageal reflux disease) Gestational diabetes 2006 on insulin during Hyperlipidemia Miscarriage 3 Miscarriages Obesity 08/25/2011 Tobacco use disorder Urogenital trichomoniasis 2 years ago 2014 - was treated I have confirmed and edited as necessary, the [facility] [facility] Review of Systems Constitutional: Negative for chills and fever. HENT: Dental/tooth pain Musculoskeletal: Negative for joint pain and myalgias. Skin: Negative for itching and rash. All other systems reviewed and are negative. Objective Physical Exam Vitals and nursing note reviewed. HENT: Mouth/Throat: Dentition: Abnormal dentition. Dental tenderness and dental caries present. No gingival swelling or dental abscesses. Pulmonary: Effort: Pulmonary effort is normal. Lymphadenopathy: Head: Right side of head: No submental, submandibular, tonsillar or preauricular adenopathy. Left side of head: No submental, submandibular, tonsillar or preauricular adenopathy. Cervical: No cervical adenopathy. Right cervical: No superficial cervical adenopathy. Left cervical: No superficial cervical adenopathy. Skin: General: Skin is warm and dry. Neurological: Mental Status: She is alert and oriented to person, place, and time. Psychiatric: Mood and Affect: Affect normal. ASSESSMENT/PLAN: 1. Pain, dental - ICD9: 525.9, ICD10: K08.89 Amoxicillin as ordered Tylenol prn See a dentist alan Diagnosis and treatment plan were discussed and questions were answered to the patient's satisfaction. Pt acknowledged understanding of concepts and follow up plan. Specific signs and symptoms that would indicate the need for higher level of care were discussed in detail warranting prompt ER evaluation. Nati Elliott APRN.CNP [facility] 01-11-2023 Instructions Nati Elliott APRN.CNP - 01/11/2023 11:52 AM EDT [facility] [address] [place] [address] [facility] [address] [address] [facility] [address] [place] [address] [facility] [address] [place] [address] [place] [address] [facility] [address] [place] [address] Follow up with dentist as soon as possible. documented in this encounter [facility] 01-11-2023 History of Presen t illness Narrative Images from the original note were not included. Subjective The history is provided by the patient and a friend. NANCY Maria is a 42 year old female who presents today for CC of dental pain. She has a tooth that needs pulled and had to cancel her dental appointment. Denies any fever or jaw swelling. Has used tyelnol with short term relief. BP 114/86 Pulse 79 Temp 36.6 C (97.8 F) Resp 18 Wt 87.6 kg (193 lb 3.2 oz) LMP (LMP Unknown) SpO2 98% BMI 31.66 kg/m Social History Tobacco Use Smoking status: Former Packs/day: 1.00 Years: 23.00 Pack years: 23.00 Types: Cigarettes Start date: 1995 Smokeless tobacco: Current Tobacco comments: currently 1/2 PPD Vaping Use Vaping Use: Never used Substance Use Topics Alcohol use: Yes Comment: Rarely - 2 drinks/year Drug use: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 daily. medroxyPROGESTERone (DEPO-PROVERA) 150 mg/mL Inject 1 mL intramuscularly every 12 weeks. meloxicam (MOBIC) 15 mg tablet Take 1 tablet by mouth once daily. With food for back pain. buPROPion XL (WELLBUTRIN XL) 300 mg 24 hr tablet Take 1 tablet by mouth once daily. omeprazole (PRILOSEC) 20 mg capsule Take 1 capsule by mouth once daily. ADVAIR DISKUS 250-50 mcg/dose inhaler Inhale 1 Puff as instructed twice daily. benzonatate (TESSALON PERLES) 100 mg capsule Take 1 capsule by mouth three times daily as needed for cough. ergocalciferol 50,000 unit capsule (VITAMIN D2, DRISDOL) Take 1 capsule by mouth one time a week. blood sugar diagnostic (BLOOD GLUCOSE TEST) test strip Test blood sugar(s) 1 times daily. Dx: Type 2 DM - Controlled E11.9 Insulin: No Lancets lancets Test blood sugar(s) 1 times daily. Dx: Type 2 DM - Controlled E11.9 Insulin: No FAMILY HISTORY Problem Relation Age of Onset Diabetes Mother Arthritis Mother Hypertension Mother Hyperlipidemia Mother Heart Mother Rheumatologic disease Mother Asthma Mother COPD Mother Coronary Artery Disease Mother Emphysema Mother Psychiatry Mother depression Seizures Mother Thyroid Mother Colon Cancer Father 50 Heart Failure Maternal Grandmother COPD Maternal Grandmother Cancer Maternal Grandmother ovarian Coronary Artery Disease Maternal Grandmother Diabetes Maternal Grandmother Heart Maternal Grandmother Hypertension Maternal Grandmother Seizures Maternal Grandmother Thyroid Maternal Grandmother Ischemic Heart Disease Maternal Grandfather other (Cirrhosis) Paternal Grandmother Alcohol/Drug Paternal Grandfather Diabetes Paternal Grandfather other (Leukemia) Paternal Grandfather other (adhd) Daughter other (sleep disorder) Daughter other (anxiety/depression) Daughter Asthma Daughter other (Other) Daughter Asthma Son Asthma Son No Known Problems Sister Social History Tobacco Use Smoking status: Current Every Day Smoker Packs/day: 1.00 Years: 23.00 Pack years: 23.00 Types: Cigarettes Start date: 1995 Smokeless tobacco: Never Used Tobacco comment: currently 1/2 PPD Vaping Use Vaping Use: Never used Substance Use Topics Alcohol use: Yes Comment: Rarely - 2 drinks/year Drug use: No PHYSICAL EXAM BP 136/90 Pulse 88 Resp 18 Wt 91.6 kg (202 lb) LMP 07/14/2021 BMI 33.10 kg/m General Appearance: well appearing, in no acute distress, alert Lungs: Lungs clear to auscultation. No wheezing, rhonchi, rales. Heart: RRR without murmur, gallop, or rubs. No ectopy Musculoskeletal: joint tenderness with palpation of fingers, elbows, knees, hips. No swelling, redness or increased warmth. No obvious joint hypermobility. Feet:Shoes and socks removed, No deformities, ulcers, calluses, normal distal pulses, not sensitive to monofilament left foot but normal on the right and vibratory perception normal bilaterally DATA REVIEWED: Most recent labs ASSESSMENT/PLAN: 1. Pain in joint involving multiple sites - ICD9: 719.49, ICD10: M25.50 (primary diagnosis) Differentials include osteoarthritis, RA, Lupus Work-up with labs: - CBC + DIFF - COMP METABOLIC PANEL - SED RATE WESTERGREN - C-REACTIVE PROTEIN (CRP) - CECILIO BY IFA SCREEN - RHEUMATOID FACTOR BL If normal consider starting Cymbalta 2. Numbness and tingling of both lower extremities - ICD9: 782.0, ICD10: R20.0, R20.2 Likely diabetic neuropathy. Check labs as above. If normal recommend starting Gabapentin 3. Fatigue, unspecified type - ICD9: 780.79, ICD10: R53.83 Multiple possible etiologies. Lab work-up as above - CBC + DIFF - COMP METABOLIC PANEL - TSH BLD - SED RATE WESTERGREN - C-REACTIVE PROTEIN (CRP) - CECILIO BY IFA SCREEN - RHEUMATOID FACTOR BL 4. Type 2 diabetes mellitus with hyperglycemia, without long-term current use of insulin (HCC) - ICD9: 250.00, 790.29, ICD10: E11.65 Overdue for follow-up. Check labs. Schedule follow-up for 6 weeks - ALBUMIN/CREAT RATIO RND UR - HGB A1C - CONSULT TO OPHTHALMOLOGY 5. Vitamin D deficiency - ICD9: 268.9, ICD10: E55.9 - VITAMIN D 25 HYDROXY Prescription instructions reviewed with patient as applicable. Potential red flag symptoms discussed with the patient. Reviewed appropriate action plan to take if red flag symptoms occur. Patient agreeable to treatment plan. Radha Campos APRN.CNP documented in this encounter [facility] 12-11-2021 Miscellaneous Notes Reason for call: elevated blood glucose Outcome: home care Reason for Disposition [1] Blood glucose > 300 mg/dL (16.7 mmol/L) AND [2] does not use insulin (e.g., not insulin-dependent; most people with type 2 diabetes) Answer Assessment - Initial Assessment Questions 1. BLOOD GLUCOSE: 390 2. ONSET: now 3. USUAL RANGE: under 200 4. KETONES: no 5. TYPE 1 or 2: 2 6. INSULIN: no 7. DIABETES PILLS: metformin, not missed any doses just took her evening dose 8. OTHER SYMPTOMS vomited yesterday, has covid 9. no Protocols used: DIABETES - HIGH BLOOD [id number] she will drink some fluids and recheck in an hour and call back as needed documented in this encounter [facility] 12-08-2021 Miscellaneous Notes Patient has risk factors of progressing to severe Covid infection, and may benefit from treatment with oral antivirals, or monoclonal antibody treatment. This is thru the Emergency use authorization (EUA) issued by the FDA for experimental treatment of Covid positive, non hospitalized, non oxygen needing patients, who have risk factors for severe disease. Treatment must be started within 5 days from the onset of symptoms for oral antivirals; or within 10 days for infusions. If agreeable, an office visit or virtual visit may be required, lab confirmation of Covid infection is needed, and prescription will be sent or referral for treatment will be made. Implementation will depend on meeting risk criteria, timing limitations, documentation of positive Covid test, and the availability of treatment. Patient notified - covid test is positive. Follow the CDC guidelines for isolation: 1. Everyone, regardless of vaccination status, should stay home for 5 days. 2. If you have no symptoms or your symptoms are resolving after 5 days, you can leave your house. 3. Continue to wear a mask around others for 5 additional days. If you have a fever, continue to stay home until your fever resolves, even if it is longer than 5 days. Please monitor your symptoms, and for any worrisome symptoms. Continue comfort measures for symptoms as you would for a cold. Any worsening symptoms follow up with PCP or ER. Please follow up with Dr Franklin for further questions or treatment. Nati Elliott APRN.CHROME WORKER documented in this encounter [facility] 10-21-2021 History of Presen t illness Narrative Patient presents with: Cough: POLO, ST, NVD, body aches, fatigue x4 days HPI: Feeling sick for 4 days. Positive symptoms: Cough, Sore throat, Body Aches, Malaise, Fatigue, sweats, Headache, Nausea, Vomiting, Diarrhea, a little Wheezing, Negative symptoms: Fever, OTC: Ibuprofen, pepto, albuterol inhaler Had COVID illness in March. PAST MEDICAL HISTORY Diagnosis Date Abnormal Pap smear of cervix ten years ago Asthma, chronic Chronic bilateral low back pain without sciatica 09/27/2019 COVID-19 04/11/2021 Depressive disorder 09/27/2019 Diabetes mellitus (HCC) Febrile seizures (HCC) as child NIKITA (generalized anxiety disorder) 09/27/2019 GERD (gastroesophageal reflux disease) Gestational diabetes 2006 on insulin during Hyperlipidemia Miscarriage 3 Miscarriages Obesity 08/25/2011 Tobacco use disorder Urogenital trichomoniasis 2 years ago 2014 - was treated MEDICATIONS: Current Outpatient Medications Medication Sig medroxyPROGESTERone (DEPO-PROVERA) 150 mg/mL Inject 1 mL intramuscularly every 12 weeks. meloxicam (MOBIC) 15 mg tablet Take 1 tablet by mouth once daily. With food for back pain. buPROPion XL (WELLBUTRIN XL) 300 mg 24 hr tablet Take 1 tablet by mouth once daily. omeprazole (PRILOSEC) 20 mg capsule Take 1 capsule by mouth once daily. ADVAIR DISKUS 250-50 mcg/dose inhaler Inhale 1 Puff as instructed twice daily. benzonatate (TESSALON PERLES) 100 mg capsule Take 1 capsule by mouth three times daily as needed for cough. albuterol HFA (VENTOLIN HFA) 90 mcg/actuation inhaler Inhale 2 Puffs as instructed every 4 hours as needed for wheezing/shortness of breath. ergocalciferol 50,000 unit capsule (VITAMIN D2, DRISDOL) Take 1 capsule by mouth one time a week. metFORMIN (GLUCOPHAGE) 500 mg tablet Take 2 tablets by mouth twice daily with meals. blood sugar diagnostic (BLOOD GLUCOSE TEST) test strip Test blood sugar(s) 1 times daily. Dx: Type 2 DM - Controlled E11.9 Insulin: No Lancets lancets Test blood sugar(s) 1 times daily. Dx: Type 2 DM - Controlled E11.9 Insulin: No Current Facility-Administered Medications Medication Dose Route Frequency medroxyPROGESTERone 150 mg injection (DEPO-PROVERA) 150 mg INTRAMUSCULAR every 12 weeks ALLERGIES: ALLERGIES Allergen Reactions Actos [Pioglitazone* Swelling Legs and Arms Swelling. Lactose GI Upset Diarrhea or Constipation with upset stomach Nasonex [Mometasone* Swelling Tongue swelling Prednisone Other: See Comments throat closing Shellfish Derived Swelling, GI Upset Sulfa (Sulfonamide * Hives VITALS: BP 120/84 Pulse 97 Temp 36.5 C (97.7 F) Resp 20 Wt 93.1 kg (205 lb 3.2 oz) LMP 07/14/2021 SpO2 98% BMI 33.63 kg/m PHYSICAL EXAM: GEN: ill appearing HEENT: PERRL, EOMI, conjunctiva clear Ears: canals clear. TMs without erythema, bulge, or effusion Sinuses: non-tender frontal sinus, non-tender maxillary sinuses, sniffing rhinorrhea Throat: moist mucous membranes, mild erythema, no exudate Neck: supple, no thyromegaly, no lymphadenopathy HEART: regular rate and rhythm, no murmurs LUNGS: clear to auscultation, no wheezes or crackles, no increased WOB ASSESSMENT/PLAN: 1. Influenza-like illness - ICD9: 487.1, ICD10: J11.1 - suspect viral URI, differential includes influenza and COVID-19. - Discussed supportive care treatment with home isolation, rest, cold medicine, and analgesia. - Red flags to seek further treatment include chest pain, shortness of breath, and lethargy; in the ER if severe. - COVID WITH FLUA+B, ROUTINE needed for work Vasyl Flood MD documented in this encounter [facility] documented as of this encounter (statuses as of 10/21/2021) [facility] History of Past illness Narrative* Problem Noted Date Resolved Date Obesity 08/25/2011 09/27/2019 documented as of this encounter (statuses as of 10/29/2021) [facility] History of Past illness Narrative* Problem Noted Date Resolved Date Obesity 08/25/2011 09/27/2019 documented as of this encounter (statuses as of 12/08/2021) [facility] History of Past illness Narrative* Problem Noted Date Resolved Date Obesity 08/25/2011 09/27/2019 documented as of this encounter (statuses as of 12/12/2021) [facility] History of Past illness Narrative* Problem Noted Date Resolved Date Obesity 08/25/2011 09/27/2019 documented as of this encounter (statuses as of 02/14/2022) [facility] History of Past illness Narrative* Problem Noted Date Resolved Date Obesity 08/25/2011 09/27/2019 documented as of this encounter (statuses as of 03/21/2022) [facility] History of Past illness Narrative* Problem Noted Date Resolved Date Obesity 08/25/2011 09/27/2019 documented as of this encounter (statuses as of 04/08/2022) [facility] History of Past illness Narrative* Problem Noted Date Resolved Date Obesity 08/25/2011 09/27/2019 documented as of this encounter (statuses as of 04/11/2022) [facility] History of Past illness Narrative* Problem Noted Date Resolved Date Obesity 08/25/2011 09/27/2019 documented as of this encounter (statuses as of 05/02/2022) [facility] History of Past illness Narrative* Problem Noted Date Resolved Date Obesity 08/25/2011 09/27/2019 documented as of this encounter (statuses as of 05/16/2022) [facility] History of Past illness Narrative* Problem Noted Date Resolved Date Obesity 08/25/2011 09/27/2019 documented as of this encounter (statuses as of 05/16/2022) [address] History of Past illness Narrative* Problem Noted Date Resolved Date Obesity 08/25/2011 09/27/2019 documented as of this encounter (statuses as of 05/20/2022) [address] History of Past illness Narrative* Problem Noted Date Resolved Date Obesity 08/25/2011 09/27/2019 documented as of this encounter (statuses as of 05/26/2022) [address] History of Past illness Narrative* Problem Noted Date Resolved Date Obesity 08/25/2011 09/27/2019 documented as of this encounter (statuses as of 06/01/2022) [address] History of Past illness Narrative* Problem Noted Date Resolved Date Obesity 08/25/2011 09/27/2019 documented as of this encounter (statuses as of 06/17/2022) [facility] History of Past illness Narrative* Problem Noted Date Resolved Date Obesity 08/25/2011 09/27/2019 documented as of this encounter (statuses as of 06/20/2022) [facility] History of Past illness Narrative* Problem Noted Date Resolved Date Obesity 08/25/2011 09/27/2019 documented as of this encounter (statuses as of 06/21/2022) [address] History of Past illness Narrative* Problem Noted Date Resolved Date Obesity 08/25/2011 09/27/2019 documented as of this encounter (statuses as of 06/22/2022) [facility] History of Past illness Narrative* Problem Noted Date Resolved Date Obesity 08/25/2011 09/27/2019 documented as of this encounter (statuses as of 07/04/2022) [place] [address]02-2012 History of Past illness Narrative* Problem Noted Date Resolved Date Obesity 08/25/2011 09/27/2019 documented as of this encounter (statuses as of 07/28/2022) [facility] History of Past illness Narrative* Problem Noted Date Resolved Date Obesity 08/25/2011 09/27/2019 documented as of this encounter (statuses as of 09/15/2022) [facility] History of Past illness Narrative* Problem Noted Date Resolved Date Obesity 08/25/2011 09/27/2019 documented as of this encounter (statuses as of 09/28/2022) [facility] History of Past illness Narrative* Problem Noted Date Resolved Date Obesity 08/25/2011 09/27/2019 documented as of this encounter (statuses as of 10/07/2022) [facility] History of Past illness Narrative* Problem Noted Date Resolved Date Obesity 08/25/2011 09/27/2019 documented as of this encounter (statuses as of 10/21/2022) [facility] History of Past illness Narrative* Problem Noted Date Resolved Date Obesity 08/25/2011 09/27/2019 documented as of this encounter (statuses as of 11/25/2022) [facility] History of Past illness Narrative* Problem Noted Date Resolved Date Obesity 08/25/2011 09/27/2019 documented as of this encounter (statuses as of 01/11/2023) [facility] History of Past illness Narrative* Problem Noted Date Resolved Date Obesity 08/25/2011 09/27/2019 documented as of this encounter (statuses as of 01/17/2023) [facility] History of Past illness Narrative* Problem Noted Date Resolved Date Obesity 08/25/2011 09/27/2019 documented as of this encounter (statuses as of 01/19/2023) [facility] History of Past illness Narrative* Problem Noted Date Diagnosed Date Resolved Date Obesity 08/25/2011 09/27/2019 documented as of this encounter (statuses as of 04/21/2023) [facility] History of Past illness Narrative* Problem Noted Date Diagnosed Date Resolved Date Obesity 08/25/2011 09/27/2019 documented as of this encounter (statuses as of 05/16/2023) [facility] History of Past illness Narrative* Problem Noted Date Diagnosed Date Resolved Date Obesity 08/25/2011 09/27/2019 documented as of this encounter (statuses as of 05/29/2023) [facility] History of Past illness Narrative* Problem Noted Date Diagnosed Date Resolved Date Obesity 08/25/2011 09/27/2019 documented as of this encounter (statuses as of 06/27/2023) [facility] History of Past illness Narrative* Problem Noted Date Diagnosed Date Resolved Date Obesity 08/25/2011 09/27/2019 documented as of this encounter (statuses as of 07/03/2023) [facility] Diagnosis Influenza-like illness- Primary Influenza with other respiratory manifestations [facility] Diagnosis Hyperlipidemia Other and unspecified hyperlipidemia [facility] Diagnosis Pain in joint involving multiple sites- Primary Pain in joint, multiple sites Numbness and tingling of both lower extremities Fatigue, unspecified type Type 2 diabetes mellitus with hyperglycemia, without long-term current use of insulin ([facility]) Vitamin D deficiency Unspecified vitamin D deficiency [facility] Diagnosis Vitamin D deficiency- Primary Unspecified vitamin D deficiency Type 2 diabetes mellitus with hyperglycemia, without long-term current use of insulin ([facility]) [facility] Diagnosis Coronary artery disease of [place] heart with stable angina pectoris, unspecified vessel or lesion type (HCC)- Primary NSTEMI (non-ST elevation myocardial infarction) (HCC) Acute myocardial infarction, subendocardial infarction, episode of care unspecified Elevated liver enzymes Other nonspecific abnormal serum enzyme levels NIKITA (generalized anxiety disorder) Generalized anxiety disorder Hyperlipidemia, unspecified hyperlipidemia type Hypertension, unspecified type Type 2 diabetes mellitus with hyperglycemia, without long-term current use of insulin (HCC) Smoker Tobacco use disorder [facility] Diagnosis NIKITA (generalized anxiety disorder) Generalized anxiety disorder Depressive disorder Depressive disorder, not elsewhere classified [facility] Diagnosis NIKITA (generalized anxiety disorder) Generalized anxiety disorder [facility] Diagnosis Type 2 diabetes mellitus with hyperglycemia, without long-term current use of insulin ([facility]) [facility] Diagnosis Diarrhea, unspecified type- Primary Type 2 diabetes mellitus with hyperglycemia, without long-term current use of insulin (HCC) NIKITA (generalized anxiety disorder) Generalized anxiety disorder Depressive disorder Depressive disorder, not elsewhere classified Coronary artery disease involving [place] coronary artery of [place] heart without angina pectoris NSTEMI (non-ST elevated myocardial infarction) (HCC) Acute myocardial infarction, subendocardial infarction, episode of care unspecified Hyperlipidemia, unspecified hyperlipidemia type Biliary disease Unspecified disorder of biliary tract Elevated LFTs Other abnormal blood chemistry Fatty liver Other chronic nonalcoholic liver disease [facility]* Diagnosis Pain, dental- Primary Unspecified disorder of the teeth and supporting structures [facility]* Diagnosis Personal history of contraception Personal history of contraception, presenting hazards to health [facility] Diagnosis Pain- Primary Generalized pain [facility]* Diagnosis Type 2 diabetes mellitus with hyperglycemia, without long-term current use of insulin ([facility]) documented in this encounter [facility]* Diagnosis Pain, dental- Primary Unspecified disorder of the teeth and supporting structures [facility] Diagnosis Sore throat- Primary Acute pharyngitis URI, acute Acute upper respiratory infections of unspecified site [facility] Diagnosis Chronic diarrhea- Primary Diarrhea Mild intermittent chronic asthma with acute exacerbation NIKITA (generalized anxiety disorder) Generalized anxiety disorder Gastroesophageal reflux disease, unspecified whether esophagitis present Depressive disorder Depressive disorder, not elsewhere classified Type 2 diabetes mellitus with hyperglycemia, without long-term current use of insulin (HCC) Hyperlipidemia, unspecified hyperlipidemia type Vitamin D deficiency Unspecified vitamin D deficiency Coronary artery disease involving [place] coronary artery of [place] heart without angina pectoris [facility] Diagnosis URI, acute- Primary Acute upper respiratory infections of unspecified site Sore throat Acute pharyngitis [facility]* Diagnosis Throat pain- Primary Influenza-like illness Influenza with other respiratory manifestations [facility]* Diagnosis Family history of autism Family history of psychiatric condition documented in this encounter [facility] note* Diagnosis Upper respiratory tract infection, unspecified type- Primary [facility]* Diagnosis Pain, dental- Primary Unspecified disorder of the teeth and supporting structures documented in this encounter [facility] note* Diagnosis Mild intermittent chronic asthma with acute exacerbation documented in this encounter [facility] note* Diagnosis Type 2 diabetes mellitus with hyperglycemia, without long-term current use of insulin (HCC)- Primary Viral upper respiratory tract infection Acute upper respiratory infections of unspecified site Nausea Nausea alone documented in this encounter [facility] note* Diagnosis Bruise- Primary Contusion of unspecified site [facility]* Diagnosis Treatment not available- Primary Procedure not carried out for other reasons documented in this encounter [facility] note* Diagnosis Encounter for screening mammogram for breast cancer documented in this encounter [facility] note* Diagnosis Encounter for screening mammogram for breast cancer documented in this encounter [facility] for referral (narrative)* Diagnostic Procedure Only (Urgent) - Closed Specialty Diagnoses / Procedures Referred By Contac t Referred To Contact XR IMAGING Diagnoses Pain Procedures XR FOOT GENERAL 3V AP/LAT/OBL LEFT RADEX FOOT COMPLETE MINIMUM 3 VIEWS Yesica Mata APRN.CNP [address] [place] [address] Xr Imaging Referral ID Status Reason Start Date Expiration Date V isits Requested Visits Authorized [id number] Closed Auto-Generate d Referral 06/21/2022 07/21/2023 1 1 [facility] for referral (narrative)* Diagnostic Procedure Only (Routine) - Closed Specialty Diagnoses / Procedures Referred By Contac t Referred To Contact BR IMAGING Diagnoses Encounter for screening mammogram for breast cancer Procedures DAYANNA SCREENING SCREENING MAMMOGRAPHY BI 2-VIEW BREAST INC CAD Remi Franklin MD [address] [place] [address] [facility] [address] [place] [address] Referral ID Status Reason Start Date Expiration Date V isits Requested Visits Authorized [id number] Closed Auto-Generate d Referral 06/30/2021 07/30/2022 1 1 [facility] for referral (narrative)* Diagnostic Procedure Only (Routine) - Authorized Specialty Diagnoses / Procedures Referred By Jessica murry Referred To Contact BR IMAGING Diagnoses Encounter for screening mammogram for breast cancer Procedures DAYANNA SCREENING SCREENING MAMMOGRAPHY BI 2-VIEW BREAST INC Remi Adair MD [address] [place] [address] [facility] [address] [place] [address] Referral ID Status Reason Start Date Expiration Date Visits Requested Visits Authorized [id number] Authorized Auto-Generat ed Referral 06/28/2023 07/27/2024 1 1 [facility] for visit Narrative* Diagnostic Procedure Only (Routine) - Closed Specialty Diagnoses / Procedures Referred By Jessica murry Referred To Contact BR IMAGING Diagnoses Encounter for screening mammogram for breast cancer Procedures DAYANNA SCREENING SCREENING MAMMOGRAPHY BI 2-VIEW BREAST INC Remi Adair MD [address] [place] [address] [facility] [address] [place] [address] Referral ID Status Reason Start Date Expiration Date V isits Requested Visits Authorized [id number] Closed Auto-Generate d Referral 06/30/2021 07/30/2022 1 1 [facility] Summary Purpose Family History No Family History Records FoundNo Family History Records FoundNo Family History Records Found Advance Directives No Advanced Directives Records FoundNo Advanced Directives Records FoundNo Advanced Directives Records Found Health Concerns Infection Onset Date Last Indicated Resolved Time COVID-19 Rule-Out 12/07/2021 12/07/2021 12/08/2021 7:30 AM EDT COVID-19 Confirmed 12/07/2021 12/07/2021 Infection Onset Date Last Indicated Resolved Time COVID-19 Confirmed 12/07/2021 12/07/2021 Infection Onset Date Last Indicated Resolved Time COVID-19 Rule-Out 11/24/2022 11/24/2022 Reason for Referral Specialty Diagnoses / Procedures Referred By Jessica murry Referred To Contact Ophthalmology Diagnoses Type 2 diabetes mellitus with hyperglycemia, without long-term current use of insulin (HCC) Procedures CONSULT TO OPHTHALMOLOGY OFFICE/OUTPATIENT [facility] 60-74 MINUTES Older, TATIANA Garcia.CHROME WORKER [address] [place] [address] Referral ID Status Reason Start Date Expiration Date Visits Requested Visits Authorized [id number] Authorized PCP Requested Referral 02/14/2022 02/14/2023 1 1 Specialty Diagnoses / Procedures Referred By Contac t Referred To Contact Gastroenterology Diagnoses Elevated liver enzymes Procedures CONSULT TO GASTROENTEROLOGY OFFICE/OUTPATIENT [facility] 60-74 MINUTES Jade Hinkle, ORGANIZATIONAL DEVELOPMENT DIRECTOR.CHROME WORKER [address] [place] [address] Referral ID Status Reason Start Date Expiration Date Visits Requested Visits Authorized [id number] Authorized PCP Requested Referral 04/08/2022 04/08/2023 1 1 Specialty Diagnoses / Procedures Referred By Contac t Referred To Contact Gastroenterology Diagnoses Chronic diarrhea Procedures CONSULT TO GASTROENTEROLOGY OFFICE/OUTPATIENT [facility] 60-74 MINUTES Older, Radha, ORGANIZATIONAL DEVELOPMENT DIRECTOR.CHROME WORKER [address] [place] [address] Referral ID Status Reason Start Date Expiration Date Visits Requested Visits Authorized [id number] Authorized PCP Requested Referral 09/27/2022 09/27/2023 1 1 Additional Source Comments INFORMATION SOURCE (unrecogn ized section and content) DATE CREATED AUTHOR AUTHOR'S ORGANIZ ATION 11/24/2022 [facility] DATE CREATED AUTHOR AUTHOR'S ORGANIZ ATION 08/17/2023 [facility] Source Comments (unrecognize d section and content) In the event this informatio n is protected by the Federal Confidentiality of Alcohol and Drug Abuse Patient Records regulations: The Federal rules restrict any use of the information to criminally investigate or prosecute any alcohol or drug abuse patient.[facility] event this information is protected by the Federal Confidentiality of Alcohol and Drug Abuse Patient Records regulations: The Federal rules restrict any use of the information to criminally investigate or prosecute any alcohol or drug abuse patient.[facility] the event this information is protected by the Federal Confidentiality of Alcohol and Drug Abuse Patient Records regulations: The Federal rules restrict any use of the information to criminally investigate or prosecute any alcohol or drug abuse patient.[facility] the event this information is protected by the Federal Confidentiality of Alcohol and Drug Abuse Patient Records regulations: The Federal rules restrict any use of the information to criminally investigate or prosecute any alcohol or drug abuse patient.[facility] the event this information is protected by the Federal Confidentiality of Alcohol and Drug Abuse Patient Records regulations: The Federal rules restrict any use of the information to criminally investigate or prosecute any alcohol or drug abuse patient.[facility] the event this information is protected by the Federal Confidentiality of Alcohol and Drug Abuse Patient Records regulations: The Federal rules restrict any use of the information to criminally investigate or prosecute any alcohol or drug abuse patient.[facility] the event this information is protected by the Federal Confidentiality of Alcohol and Drug Abuse Patient Records regulations: The Federal rules restrict any use of the information to criminally investigate or prosecute any alcohol or drug abuse patient.[facility] the event this information is protected by the Federal Confidentiality of Alcohol and Drug Abuse Patient Records regulations: The Federal rules restrict any use of the information to criminally investigate or prosecute any alcohol or drug abuse patient.[facility] the event this information is protected by the Federal Confidentiality of Alcohol and Drug Abuse Patient Records regulations: The Federal rules restrict any use of the information to criminally investigate or prosecute any alcohol or drug abuse patient.[facility] the event this information is protected by the Federal Confidentiality of Alcohol and Drug Abuse Patient Records regulations: The Federal rules restrict any use of the information to criminally investigate or prosecute any alcohol or drug abuse patient.[facility] the event this information is protected by the Federal Confidentiality of Alcohol and Drug Abuse Patient Records regulations: The Federal rules restrict any use of the information to criminally investigate or prosecute any alcohol or drug abuse patient.[facility] the event this information is protected by the Federal Confidentiality of Alcohol and Drug Abuse Patient Records regulations: The Federal rules restrict any use of the information to criminally investigate or prosecute any alcohol or drug abuse patient.[facility] the event this information is protected by the Federal Confidentiality of Alcohol and Drug Abuse Patient Records regulations: The Federal rules restrict any use of the information to criminally investigate or prosecute any alcohol or drug abuse patient.[facility] the event this information is protected by the Federal Confidentiality of Alcohol and Drug Abuse Patient Records regulations: The Federal rules restrict any use of the information to criminally investigate or prosecute any alcohol or drug abuse patient.[facility] the event this information is protected by the Federal Confidentiality of Alcohol and Drug Abuse Patient Records regulations: The Federal rules restrict any use of the information to criminally investigate or prosecute any alcohol or drug abuse patient.[facility] the event this information is protected by the Federal Confidentiality of Alcohol and Drug Abuse Patient Records regulations: The Federal rules restrict any use of the information to criminally investigate or prosecute any alcohol or drug abuse patient.[facility] the event this information is protected by the Federal Confidentiality of Alcohol and Drug Abuse Patient Records regulations: The Federal rules restrict any use of the information to criminally investigate or prosecute any alcohol or drug abuse patient.[facility] the event this information is protected by the Federal Confidentiality of Alcohol and Drug Abuse Patient Records regulations: The Federal rules restrict any use of the information to criminally investigate or prosecute any alcohol or drug abuse patient.[facility] the event this information is protected by the Federal Confidentiality of Alcohol and Drug Abuse Patient Records regulations: The Federal rules restrict any use of the information to criminally investigate or prosecute any alcohol or drug abuse patient.[facility] the event this information is protected by the Federal Confidentiality of Alcohol and Drug Abuse Patient Records regulations: The Federal rules restrict any use of the information to criminally investigate or prosecute any alcohol or drug abuse patient.[facility] the event this information is protected by the Federal Confidentiality of Alcohol and Drug Abuse Patient Records regulations: The Federal rules restrict any use of the information to criminally investigate or prosecute any alcohol or drug abuse patient.[facility] the event this information is protected by the Federal Confidentiality of Alcohol and Drug Abuse Patient Records regulations: The Federal rules restrict any use of the information to criminally investigate or prosecute any alcohol or drug abuse patient.[facility] the event this information is protected by the Federal Confidentiality of Alcohol and Drug Abuse Patient Records regulations: The Federal rules restrict any use of the information to criminally investigate or prosecute any alcohol or drug abuse patient.[facility] the event this information is protected by the Federal Confidentiality of Alcohol and Drug Abuse Patient Records regulations: The Federal rules restrict any use of the information to criminally investigate or prosecute any alcohol or drug abuse patient.[facility] the event this information is protected by the Federal Confidentiality of Alcohol and Drug Abuse Patient Records regulations: The Federal rules restrict any use of the information to criminally investigate or prosecute any alcohol or drug abuse patient.[facility] the event this information is protected by the Federal Confidentiality of Alcohol and Drug Abuse Patient Records regulations: The Federal rules restrict any use of the information to criminally investigate or prosecute any alcohol or drug abuse patient.[facility] the event this information is protected by the Federal Confidentiality of Alcohol and Drug Abuse Patient Records regulations: The Federal rules restrict any use of the information to criminally investigate or prosecute any alcohol or drug abuse patient.[facility] the event this information is protected by the Federal Confidentiality of Alcohol and Drug Abuse Patient Records regulations: The Federal rules restrict any use of the information to criminally investigate or prosecute any alcohol or drug abuse patient.[facility] the event this information is protected by the Federal Confidentiality of Alcohol and Drug Abuse Patient Records regulations: The Federal rules restrict any use of the information to criminally investigate or prosecute any alcohol or drug abuse patient.[facility] the event this information is protected by the Federal Confidentiality of Alcohol and Drug Abuse Patient Records regulations: The Federal rules restrict any use of the information to criminally investigate or prosecute any alcohol or drug abuse patient.[facility] the event this information is protected by the Federal Confidentiality of Alcohol and Drug Abuse Patient Records regulations: The Federal rules restrict any use of the information to criminally investigate or prosecute any alcohol or drug abuse patient.[facility] the event this information is protected by the Federal Confidentiality of Alcohol and Drug Abuse Patient Records regulations: The Federal rules restrict any use of the information to criminally investigate or prosecute any alcohol or drug abuse patient.[facility] the event this information is protected by the Federal Confidentiality of Alcohol and Drug Abuse Patient Records regulations: The Federal rules restrict any use of the information to criminally investigate or prosecute any alcohol or drug abuse patient.[facility] Reason for Visit (unrecogniz ed section and content) Reason Comments Results covid Reason Comments Diabetes Reason Comments joint and muscle pain couple of months Reason Comments Hospital F/U Reason Onset Date Comments Refill Request 04/11/2022 Reason Comments Refill Request Reason Onset Date Comments Refill Request 05/14/2022 Reason Comments 6 week follow up Reason Comments Patient Update Reason Comments Dental Problem Pt reported tooth pa in lower (RT) intermittent 10, x5 days. Reason Comments Pain (foot) left foot, foot slip ped into couch while standing on it x 1 day Reason Onset Date Comments Refill Request 07/04/2022 Reason Comments Dental Problem X1.5 monthsSeen / 5 for same Reason Comments Sore Throat headache, nasal drai nage, nausea and cough x 1 day Reason Comments Follow Up Reason Comments Sore Throat ST, POLO, nausea and s tomach hurts x 1 day Reason Comments Headache Pt reported diarrhea , x 4 days. Specialty Diagnoses / Procedures Referred By Contac t Referred To Contact Lab Diagnoses Family history of autism Procedures Genetic Sendout: Parent sample for whole [place]ome [place] [address] Referral ID Status Reason Start Date Expiration Date Visits Re quested Visits Authorized [id number] Open 11/17/2022 11/17/2023 1 1 Reason Comments Sore Throat Pt reported throat p ain, Polo x1 day. Reason Comments Dental Problem R side tooth infecti on x3 weeks Reason Onset Date Comments Refill Request 01/15/2023 Reason Comments Nausea Dizziness Reason Comments Bruise L bicep x20 mins Reason Comments Illness Lung pain, coughing , wheezing, nausea, headache Reason Onset Date Comments Refill Request 06/26/2023 Care Teams (unrecognized sec tion and content) Organ Pipe Finisher Relationship Specialty Start Date End Date Remi Franklin MD [address] [facility] [address] PCP - General Internal Medicine 09/27/19 Organ Pipe Finisher Relationship Specialty Start Date End Date Remi Franklin MD [address] [place] [address] PCP - General Internal Medicine 09/27/19 Organ Pipe Finisher Relationship Specialty Start Date End Date Remi Franlkin MD [address] [place] [address] PCP - General Internal Medicine 09/27/19 Organ Pipe Finisher Relationship Specialty Start Date End Date Remi Franklin MD [facility] [place] [address] PCP - General Internal Medicine 09/27/19 Organ Pipe Finisher Relationship Specialty Start Date End Date Remi Franklin MD [address] [place] [address] PCP - General Internal Medicine 09/27/19 Organ Pipe Finisher Relationship Specialty Start Date End Date Remi Franklin MD [address] [place] [address] PCP - General Internal Medicine 09/27/19 Organ Pipe Finisher Relationship Specialty Start Date End Date Remi Franklin MD [facility] [place] [address] PCP - General Internal Medicine 09/27/19 Organ Pipe Finisher Relationship Specialty Start Date End Date Remi Franklin MD [facility] [place] [address] PCP - General Internal Medicine 09/27/19 Organ Pipe Finisher Relationship Specialty Start Date End Date Remi Franklin MD [address] [place] [address] PCP - General Internal Medicine 09/27/19 Organ Pipe Finisher Relationship Specialty Start Date End Date Remi Franklin MD [address] [place] [address] PCP - General Internal Medicine 09/27/19 Organ Pipe Finisher Relationship Specialty Start Date End Date Remi Franklin MD [facility] [place] [address] PCP - General Internal Medicine 09/27/19 Organ Pipe Finisher Relationship Specialty Start Date End Date Remi Franklin MD [facility] [place] [address] PCP - General Internal Medicine 09/27/19 Organ Pipe Finisher Relationship Specialty Start Date End Date Remi Franklin MD [address] [place] [address] PCP - General Internal Medicine 09/27/19 Organ Pipe Finisher Relationship Specialty Start Date End Date Remi Franklin MD [facility] [place] [address] PCP - General Internal Medicine 09/27/19 Organ Pipe Finisher Relationship Specialty Start Date End Date Remi Franklin MD [address] [place] [address] PCP - General Internal Medicine 09/27/19 Organ Pipe Finisher Relationship Specialty Start Date End Date Remi Franklin MD [facility] [place] [address] PCP - General Internal Medicine 09/27/19 Organ Pipe Finisher Relationship Specialty Start Date End Date Remi Franklin MD [address] [place] [address] PCP - General Internal Medicine 09/27/19 Organ Pipe Finisher Relationship Specialty Start Date End Date Melina Mcdonough, [place] [address] Genetic Counselor Genetics 11/17/22 Organ Pipe Finisher Relationship Specialty Start Date End Date Remi Franklin MD [address] [place] [address] PCP - General Internal Medicine 09/27/19 Organ Pipe Finisher Relationship Specialty Start Date End Date Remi Franklin MD [address] [place] [address] PCP - General Internal Medicine 09/27/19 Organ Pipe Finisher Relationship Specialty Start Date End Date Remi Franklin MD [address] [place] [address] PCP - General Internal Medicine 09/27/19 Organ Pipe Finisher Relationship Specialty Start Date End Date Remi Franklin MD [address] [place] [address] PCP - General Internal Medicine 09/27/19 Organ Pipe Finisher Relationship Specialty Start Date End Date Remi Franklin MD [address] [place] [address] PCP - General Internal Medicine 09/27/19 Organ Pipe Finisher Relationship Specialty Start Date End Date Remi Franklin MD [address] [place] [address] PCP - General Internal Medicine 09/27/19 FOR RECORDS PERTAINING TO PATIENTS WHO ARE OR HAVE BEEN ENROLLED IN A CHEMICAL DEPENDENCY/SUBSTANCEABUSE PROGRAM, SOME INFORMATION MAY BE OMITTED. This clinical summary was aggregated from multiple sources. Caution should be exercised in using it in the provision of clinical care. This summary normalizes information from multiple sources, and as a consequence, information in this document may materially change the coding, format and clinical context of patient data. In addition, data may be omitted in some cases. CLINICAL DECISIONS SHOULD BE BASED ON THE PRIMARY CLINICAL RECORDS. [facility]. provides no warranty or guarantee of the accuracy or completeness of information in this document.
[2023-09-01 21:06] LABS: Anion Gap 8 (5-15); BUN 16 mg/dL (7-18); BUN/Creat Ratio 14.7 RATIO (10-20); Calcium,Total 9.5 mg/dL (8.5-10.1); Chloride 104 mmol/L (98-107); Creatinine, Serum 1.09 mg/dL (0.55-1.02); EST Glomerular Filtration Rate 58 mL/min (>60); Est Glom Filt Rate - Afr Amer 70 mL/min (>60); Estimated Creatinine Clearance 74.24 ml/min; Glucose 167 mg/dL (74-106); Potassium 3.4 mmol/L (3.5-5.1); Sodium Level 136 mmol/L (136-145); Troponin-I HS (w/2H Reflex) 4 pg/mL (3.0-54.0)
[2023-09-01 21:10] LABS: Internal QC Validated? YES +Cl - CLEAR BKGD; Pregnancy, Serum, hCG Quali. NEGATIVE Negative
[2023-09-01 21:20] VITALS: BP 134/83; PULSE 79; RESP 20; O2SAT 97
[2023-09-01 22:20] VITALS: BP 109/67; PULSE 67; RESP 19; O2SAT 97
[2023-09-01 22:46] LABS: Reflex Troponin-HS? (from REC) Y
[2023-09-01 23:16] LABS: Troponin-I HS 6 pg/mL (3.0-54.0)
[2023-09-01 23:41] VITALS: BP 107/80; PULSE 63; RESP 20; O2SAT 97
== END 2023-09-01 23:45 | disposition home or self-care (01) ==
PROVIDERS: Emergency Provider Emergency Medicine; PCP Internal Medicine; Visit Provider Emergency Medicine
DX: R07.89 Other chest pain (principal); I25.10 Atherosclerotic heart disease of native coronary artery without angina pectoris; I25.2 Old myocardial infarction; F17.290 Nicotine dependence, other tobacco product, uncomplicated; E78.00 Pure hypercholesterolemia, unspecified; E66.9 Obesity, unspecified; Z68.33 Body mass index [BMI] 33.0-33.9, adult; Z79.82 Long term (current) use of aspirin; Z79.84 Long term (current) use of oral hypoglycemic drugs; Z79.899 Other long term (current) drug therapy
CPT/HCPCS: 71045; 80048; 84484; 84703; 85025; 93005; 99284; A4216

== ENCOUNTER → 2025-03-21 | Outpatient (CLI) | payer MEDICAID, SELFPAY ==
[2025-03-21 16:08] LABS: Hematocrit 41.7 % (37-47); Hemoglobin 13.7 g/dL (12.0-15.0); Immature Granulocytes Count 0.020 X10^3/uL (0.0-0.0); Mean Corp Hgb Conc 32.9 g/dL (32-36); Mean Corpuscular Volume 83.9 fL (81-99); Mean Platelet Vol. 9.3 fl (6.2-12.0); NRBC Flagged by Analyzer 0 % (0-5); Platelet Count 323 K/mm3 (150-450); RBC Distribution Width CV 12.8 % (11.6-14.6); RBC Distribution Width SD 38.8 fl (35.1-43.9); Red Blood Count 4.97 M/mm3 (4.2-5.4); White Blood Count 6.7 K/mm3 (4.4-11.0)
[2025-03-21 16:48] LABS: AST(SGOT) 27 U/L (<=31); Alanine Aminotransfer ALT/SGPT 33 U/L (<=34); Albumin, Serum 4.4 g/dL (3.5-5.0); Alkaline Phosphatase 75 U/L (35-104); Anion Gap 13 (5-15); BUN 25 mg/dL (4-19); BUN/Creat Ratio 24.8 RATIO (10-20); Calcium,Total 9.3 mg/dL (7.6-11.0); Carbon Dioxide 21.9 mmol/L (21.0-32.0); Chloride 100 mmol/L (98-108); Cholesterol 167 mg/dL (<=200); Globulin 2.9 g/dL (2.2-4.2); Glucose 105 mg/dL (70-99); Low Density Lipoprotein Calc. 100 mg/dL; Potassium 4.5 mmol/L (3.3-5.1); Pro- Brain NATRIURETIC PEPTIDE 81 pg/mL (<=450); Triglycerides 137 mg/dL; Very Low Density Lipoprotein 27 mg/dL (5-40); cholesterol:hdl ratio screen 4.26
== END | disposition home or self-care (01) ==
LOC: LAB 15:18
PROVIDERS: PCP Internal Medicine; Referring Provider Student in an Organized Health Care Education/Training Program; Visit Provider Student in an Organized Health Care Education/Training Program
DX: R06.02 Shortness of breath (principal); E78.5 Hyperlipidemia, unspecified; I25.10 Atherosclerotic heart disease of native coronary artery without angina pectoris
CPT/HCPCS: 36415; 80053; 80061; 83880; 85025